=== PATIENT | male | born 1955 | race Caucasian/White ===

== ENCOUNTER 2016-08-18 09:21 | Outpatient (CLI) | payer MEDICARE ==
[2016-08-18 18:33] LABS: HEMOGLOBIN A1C 0.83 g/dL
[2016-08-18 18:46] LABS: ALBUMIN/GLOBULIN RATIO 1.7 (1.0-2.2); BILIRUBIN,TOTAL 0.5 mg/dL (0.2-1.0); BUN - BLOOD UREA NITROGEN 23 mg/dL (6-20); CALCIUM 9.8 mg/dL (8.5-10.3); CARBON DIOXIDE - CO2 26 mmol/L (21-32); CHLORIDE 108 mmol/L (101-111); CHOL/HDL RATIO 4.5 (<5.0); CHOLESTEROL 157 mg/dL; CREATININE 1.1 mg/dL (0.6-1.2); GFR - MDRD 68 (>89); GLUCOSE 117 mg/dL (70-100); HDL CHOLESTEROL 35 mg/dL; LDL/HDL RATIO 1.6 (<3.6); POTASSIUM 4.1 mmol/L (3.5-5.0); SODIUM 139 mmol/L (135-145); TRIGLYCERIDES 329 mg/dL; URIC ACID 4.6 mg/dL (2.6-7.2); VLDL CHOLESTEROL 66 mg/dL
== END 2016-08-18 09:22 | disposition home or self-care (01) ==
LOC: LAB.F 09:21
PROVIDERS: ATTEND Family Medicine
DX: E11.9 Type 2 diabetes mellitus without complications (principal); I10 Essential (primary) hypertension; D89.813 Graft-versus-host disease, unspecified; D64.3 Other sideroblastic anemias; E78.5 Hyperlipidemia, unspecified; M10.9 Gout, unspecified; E78.1 Pure hyperglyceridemia; Z79.899 Other long term (current) drug therapy
CPT/HCPCS: 36415; 80053; 80061; 82043; 83036; 84550

== ENCOUNTER 2016-11-12 10:04 | Outpatient (CLI) | payer MEDICARE ==
[2016-11-12 19:36] LABS: HEMOGLOBIN A1C 0.97 g/dL
== END 2016-11-12 10:05 | disposition home or self-care (01) ==
LOC: LAB.F 10:04
PROVIDERS: ATTEND Family Medicine
DX: D48.5 Neoplasm of uncertain behavior of skin (principal); E11.9 Type 2 diabetes mellitus without complications; Z79.4 Long term (current) use of insulin; I10 Essential (primary) hypertension; G89.4 Chronic pain syndrome
CPT/HCPCS: 36415; 83036

== ENCOUNTER 2016-12-03 09:13 | Inpatient (IN) | payer MEDICARE ==
[2016-12-03] MEDS ORDERED: ONDANSETRON 4 MG/2 ML VIAL IVP STA (10:07)
[2016-12-03] MEDS ORDERED: SODIUM CHLORIDE 0.9% 1,000 ML IV ONE (10:07)
[2016-12-03] MEDS ORDERED: HYDROmorphone 1 MG/ML SYRINGE IVP STA ×2 (10:07→12:20)
[2016-12-03 10:15] LABS: BASOPHILS # (AUTO) 0.1 10^3/uL (0.0-0.1); BASOPHILS % (AUTO) 0.4 %; EOSINOPHILS # (AUTO) 0.1 10^3/uL (0.0-0.7); EOSINOPHILS % (AUTO) 0.9 %; HCT - HEMATOCRIT 47.1 % (42.0-52.0); LYMPHOCYTES # (AUTO) 1.5 10^3/uL (1.5-3.5); LYMPHOCYTES % (AUTO) 11.5 %; MEAN CORPUSCULAR HEMOGLOBIN 33.7 pg (27.0-31.0); MEAN CORPUSCULAR VOLUME 98.9 fL (80.0-94.0); MEAN PLATELET VOLUME 7.9 fL (7.4-11.4); MONOCYTES # (AUTO) 1.1 10^3/uL (0.0-1.0); MONOCYTES % (AUTO) 8.3 %; NEUTROPHILS # (AUTO) 10.6 10^3/uL (1.5-6.6); NEUTROPHILS % (AUTO) 78.9 %; RED BLOOD COUNT 4.77 10^6/uL (4.70-6.10); RED CELL DISTRIBUTION WIDTH 14.3 % (12.0-15.0); UNCORRECTED WHITE BLOOD COUNT 13.4 x10^3/uL; WHITE BLOOD COUNT 13.4 x10^3/uL (4.8-10.8)
[2016-12-03] MEDS ORDERED: HYDROmorphone 1 MG/ML SYRINGE ONE ×2 (10:15→12:41)
[2016-12-03] MEDS ORDERED: ONDANSETRON 4 MG/2 ML VIAL ONE (10:16)
[2016-12-03 10:31] LABS: ALBUMIN/GLOBULIN RATIO 2.1 (1.0-2.2); BILIRUBIN,TOTAL 0.8 mg/dL (0.2-1.0); CALCIUM 10.2 mg/dL (8.5-10.3); TOTAL PROTEIN 6.9 g/dL (6.7-8.2)
[2016-12-03 10:32] LABS: POTASSIUM 4.2 mmol/L (3.5-5.0)
[2016-12-03 11:09] LABS: PLATELET ESTIMATE, MANUAL DECREASED (<130,000) (NORMAL); PLATELET MORPHOLOGY NORMAL APPEARANCE (NORMAL); WBC MORPHOLOGY (MULTIPLE) NORMAL APPEARANCE (NORMAL)
[2016-12-03] MEDS ORDERED: SODIUM CHLORIDE FLUSH 0.9% 10 ML SYRINGE IVP ONE (12:41)
--- NOTE | 2016-12-03 15:19 | ED Physician Documentation ---
PD HPI ABD PAIN - Stated complaint Stated Complaint: SIDE PX - Chief complaint Chief Complaint: Abd Pain - History obtained from History obtained from: Patient, Family - History of Present Illness Timing - onset: Yesterday Timing - details: Still present Quality: Pain Associated symptoms: Vomiting (x 1 this morning.). No: Fever Similar symptoms before: Diagnosis (History of chronic pancreatitis.) - Treatment prior to arrival Treatment prior to arrival: Hydromorphone without relief. - Additional information Additional information: The patient is a 61-year-old male who presents with upper abdominal pain that started yesterday and continues this morning, with associated vomiting. He has a history of chronic pancreatitis, and states this feels the same as acute exacerbations of pancreatitis he has had in the past. His last acute flareup was about 1 year ago. He has been using hydromorphone for pain, and also uses hydrocodone when needed. His last alcohol was in 1998. Review of his medical record reveals similar presentations, with ultrasound revealing cholelithiasis without evidence of cholecystitis. He has also undergone CT and MRI of his abdomen, which revealed no evidence of biliary obstruction or choledocholithiasis. 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 He developed agyue-luqwlh-yxxr disease with subsequent myelodysplastic syndrome. Review of Systems Constitutional: denies: Fever Nose: denies: Congestion Throat: denies: Sore throat Cardiac: denies: Chest pain / pressure Respiratory: denies: Dyspnea, Cough GI: reports: Abdominal Pain, Nausea, Vomiting. denies: Diarrhea, Bloody / black stool : denies: Dysuria Skin: denies: Rash Musculoskeletal: denies: Back pain Neurologic: denies: Focal weakness, Numbness, Headache PD PAST MEDICAL HISTORY - Past Medical History Past Medical History: Yes Cardiovascular: None Respiratory: None Neuro: None Endocrine/Autoimmune: Type 2 diabetes GI: Pancreatitis HEENT: None Musculoskeletal: Gout Derm: None Other Past Medical History: Chronic pancreatitis; Stem cell transplant for leukemia; Zugto-sk-[id number] with subsequent myelodysplastic syndrome - Past Surgical History Past Surgical History: Yes - Present Medications Home Medications: Ambulatory Orders Medication Instructions Recorded Confirmed Allopurinol 300 mg PO DAILY 10/04/12 11/15/16 Cholecalciferol (Vitamin D3) 1,000 unit PO DAILY 10/04/12 11/15/16 [Vitamin D3] Lisinopril 20 mg PO BID 10/04/12 11/15/16 Multivitamin [Multivitamins] 1 each PO DAILY 10/04/12 11/15/16 Omeprazole [PriLOSEC] 20 mg PO QDAC 10/04/12 11/15/16 Insulin NPH Human Isophane 40 unit SQ BID 02/12/13 11/15/16 [Humulin N] Acyclovir 800 mg PO BID 05/16/15 11/15/16 Atorvastatin Calcium 20 mg PO DAILY 10/23/15 11/15/16 Insulin Regular, Human [Humulin R] 30 unit SQ QID 10/23/15 11/15/16 Sildenafil Citrate [Sildenafil] 20 - 40 mg PO DAILY PRN 10/23/15 11/15/16 Magnesium Oxide [Magnesium] 2,000 mg PO DAILY #0 10/28/15 11/15/16 Metoprolol Tartrate [Lopressor] 50 mg PO BID #28 tablet 10/28/15 11/15/16 Hydrocodone/Acetaminophen 1 - 2 tab PO Q4HR PRN 11/17/15 11/15/16 [Hydrocodone-APAP 5-300] predniSONE [Deltasone] 10 mg PO DAILYWM 02/16/16 11/15/16 HYDROmorphone [Dilaudid] 2 mg PO Q4-6H PRN 11/15/16 11/15/16 - Allergies Allergies/Adverse Reactions: Allergies Allergy/AdvReac Type Severity Reaction Status Date / Time No Known Drug Allergies Allergy Verified 03/01/16 05:12 - Social History Does the pt smoke?: No Smoking Status: Never smoker Does the pt drink ETOH?: No Does the pt have substance abuse?: No - Immunizations Immunizations are current?: Yes - POLST Patient has POLST: No PD ED PE NORMAL - Vitals Vital signs reviewed: Yes (hypertensive) - General General: Alert and oriented X 3, Well developed/nourished - HEENT HEENT: Atraumatic, Pharynx benign - Neck Neck: No adenopathy, No JVD - Cardiac Cardiac: RRR, No murmur - Respiratory Respiratory: No respiratory distress, Clear bilaterally - Abdomen Abdomen: Normal bowel sounds, Soft, Other (Rotund abdomen, with mild right upper quadrant and epigastric tenderness to palpation, without rebound tenderness or guarding.) - Back Back: No CVA TTP - Derm Derm: No rash - Extremities Extremities: No edema, No calf tenderness / cord - Neuro Neuro: Alert and oriented X 3, No motor deficit, Normal speech Results - Vitals Vitals: Vital Signs - 24 hr 12/03/16 12/03/16 12/03/16 09:25 10:31 12:10 Temperature 37.0 C 36.5 C Heart Rate 73 72 74 Respiratory 18 17 14 Rate Blood Pressure 150/75 H 142/70 H 154/97 H O2 Saturation 98 98 92 12/03/16 12/03/16 12/03/16 12:40 14:15 16:23 Temperature Heart Rate 81 74 72 Respiratory 16 16 Rate Blood Pressure 153/89 H 133/63 H 179/93 H O2 Saturation 95 96 95 Oxygen O2 Source Room air - Labs Labs: Laboratory Tests 12/03/16 12/03/16 12/03/16 10:02 10:02 10:02 WBC 13.4 H RBC 4.77 Hgb 16.0 Hct 47.1 MCV 98.9 H MCH 33.7 H MCHC 34.0 RDW 14.3 Plt Count 126 L MPV 7.9 Neut # 10.6 H Lymph # 1.5 [place] # 1.1 H Eos # 0.1 Baso # 0.1 Absolute Nucleated RBC 0.00 Nucleated RBCs 0.0 Manual Slide Review Indicated WBC Morphology NORMAL APPEARANCE Platelet Estimate DECREASED (<130,000) Platelet Morphology NORMAL APPEARANCE RBC Morph Micro Appear NORMAL APPEARANCE Sodium 136 Potassium 4.2 Chloride 103 Carbon Dioxide 22 Anion Gap 11.0 BUN 21 H Creatinine 1.0 Estimated GFR (MDRD) 76 L Glucose 187 H Calcium 10.2 Total Bilirubin 0.8 AST 37 ALT 43 Alkaline Phosphatase 41 L Total Protein 6.9 Albumin 4.7 Globulin 2.2 Albumin/Globulin Ratio 2.1 Amylase 313 H Lipase 359 H - Rads (name of study) RUQ U/S Radiology: Prelim report reviewed, EMP read contemporaneously, See rad report ( 1. Enlarged liver with diffuse hepatic steatosis, along with focal fatty sparing in the left lobe. 2. Cholelithiasis with evidence for acute cholecystitis. 3. No intrahepatic biliary dilatation. 4. Pancreas not well seen. ) PD MEDICAL DECISION MAKING - ED course Complexity details: reviewed old records, reviewed results, re-evaluated patient , considered differential, d/w patient, d/w family, d/w solutions consultant ED course: The patient's presentation is consistent with acute exacerbation of chronic pancreatitis, with a lipase of 359. Ultrasound of the right upper quadrant again reveals cholelithiasis, but unlike previous imaging studies also reveals evidence of acute cholecystitis. His liver enzymes are normal with a bilirubin of 0.8, an AST of 43, and an alk phos of 41. Treatment in the emergency department included administration of normal saline 1 L IV, Dilaudid 2 mg IV, and Zofran 4 mg IV. Subsequently an additional milligram of Dilaudid and 4 mg Zofran were administered IV. I discussed his condition with the hospitalist who evaluated him in the emergency department and admitted him for further evaluation and treatment. General surgery was consulted as per the medicine service. Departure - Departure Disposition: [facility] DC/Xfer Clinical Impression: Acute pancreatitis Qualifiers: Pancreatitis type: unspecified pancreatitis type Acute pancreatitis complication: unspecified Qualified Code(s): K85.90 - Acute pancreatitis without necrosis or infection, unspecified Cholecystitis with cholelithiasis Qualifiers: Cholelithiasis location: gallbladder Cholecystitis acuity: unspecified acuity Biliary obstruction: without biliary obstruction Qualified Code(s): K80.00 - Calculus of gallbladder with acute cholecystitis without obstruction Condition: Stable
[2016-12-03] MEDS ORDERED: ZOLPIDEM 5 MG TABLET PO PRN (16:37)
[2016-12-03] MEDS ORDERED: ONDANSETRON 4 MG/2 ML VIAL IVP PRN (16:37)
[2016-12-03] MEDS ORDERED: cloNIDine 0.1 MG TABLET PO PRN (16:42)
--- NOTE | 2016-12-03 16:47 | Ultrasound Preliminary Report ---
Exam: US Abdomen Limited IMPRESSION: 1. Enlarged liver with diffuse hepatic steatosis, along with focal fatty sparing in the left lobe. 2. Cholelithiasis with evidence for acute cholecystitis. 3. No intrahepatic biliary dilation. 4. Pancreas not well-seen. [facility] SITE ID: [id number]
--- NOTE | 2016-12-03 16:50 | Ultrasound Report ---
EXAM: ABDOMEN ULTRASOUND LIMITED, RUQ EXAM DATE: 12/03/2016 04:29 PM. CLINICAL HISTORY: Pancreatitis; RUQ pain. COMPARISON: 10/22/2015. TECHNIQUE: Real-time scanning was performed with static images obtained. FINDINGS: Liver: Enlarged liver with diffusely increased echogenicity. Focal 3.5 cm hypoechoic avascular area w ith ill-defined borders in the left lobe is unchanged compared to prior. 20.1 cm. Main portal vein fl ow: Hepatopetal. Gallbladder: Gallbladder wall thickening to 5 mm. Sludge and a small mobile gallstones in the gallbla dder. Positive sonographic Bowman sign. Biliary System: Common bile duct is not seen secondary to overlying bowel gas shadowing. No intrahepa tic biliary dilation.. Other: Right kidney appears unremarkable without hydronephrosis. Pancreas is not well seen due to bow el gas shadowing. IMPRESSION: 1. Enlarged liver with diffuse hepatic steatosis, along with focal fatty sparing in the left lobe. 2. Cholelithiasis with evidence for acute cholecystitis. 3. No intrahepatic biliary dilation. 4. Pancreas not well-seen. [facility] Referring Provider Line: [phone] SITE ID: [id number]
[2016-12-03] MEDS ORDERED: INSULIN ASPART 300 UNIT/3 ML PEN SUBQ SCH (17:00)
[2016-12-03 17:23] LABS: HEMOGLOBIN A1C 1.11 g/dL
[2016-12-03] MEDS: SODIUM CHLORIDE FLUSH 0.9% 10 ML SYRINGE IVP PRN (17:43)
[2016-12-03] MEDS: HYDROmorphone 1 MG/ML SYRINGE IVP PRN ×2 (17:43→19:42)
[2016-12-03] MEDS: SODIUM CHLORIDE 0.9% 1,000 ML IV SCH ×2 (17:47→17:53)
[2016-12-03] MEDS: PIPERACILLIN/TAZOBACTAM 3.375 GM in SODIUM CHLORIDE 0.9% MINIBAG 100 ML IV SCH (17:53)
[2016-12-03] MEDS: INSULIN REGULAR HUMAN 100 UNIT/1 ML 10 ML MDV SUBQ SCH (18:17)
--- NOTE | 2016-12-03 19:26 | HISTORY & PHYSICAL EXAMINATION ---
Chief Complaint - Chief Complaint Chief Complaint: abdominal pain History of Present Illness - Admitted From Admitted From:: emergence department - History Obtained From History obtained from: patient - History of Present Illness HPI Comment/Other: This is a 61-year-old Cauc[place] male with a past medical history significant for chronic pancreatitis, alcoholism, DM2, gout, Leukemia with stem cell transplant , chwxv-bvblhh-amoh disease with subsequent myelodysplastic syndrome, hyperlilidemia, and HTN, who present the emergence department for evaluation of suddenly onset of abdominal pain. Patient state the abdominal pain start quite suddenly after he ate Chicken Enchiladas. Patient ate "quite a bit, it is very tasty." The pain radiate to his back, then diffuse the abdomen. Patient report this time the way of pain is different from his previous pancreatitis pain. The previous pain started from the chronic pattern. Patient report his last flareup of acute on chronic pancreatitis was about one year ago. Patient report he quit alcohol since 1998. Patient report subsequently he developed nausea and vomiting. He denies hematemesis, melena, or rectal bleeding. Patient denies fever, chill, chest pain, shortness of breathing, headache, dysuria, hematuria, vision changing. In the lab test in ER, patient has the elevated Lipase and Amylase level at 359 , and 313, elevated WBC at 13.4, and elevated glucose 262. The abdominal US reveals enlarged liver with diffuse hepatic steatosis, with evidence of acute cholecystitis, no intrahepatic biliary dilation. Patient is admitted for evaluation of acute on chronic pancreatitis and acute cholecystitis. Review of Systems - Constitutional Constitutional: denies: Fever, Chills, Malaise, Weakness, Poor appetite, Night sweats, Weight gain, Weight loss - Eyes Eyes: denies: Pain, Irritation, Amaurosis, Blurred vision, Spots in vision, Field loss, Vision loss, Dipolpia - Ears, Nose & Throat Ears, Nose & Throat: denies: Ear pain, Hearing loss, Hearing aids, Tinnitus, Vertigo, Nasal discharge, Nosebleeds, Postnasal drainage, Sore throat, Hoarseness, Bleeding gums - Cardiovascular Cariovascular: denies: Irregular heart rate, Palpitations, Chest pain, Edema, Lightheadedness, Syncope, Exertional dyspnea, Decr. exercise tolerance - Respiratory Respiratory: denies: Cough, Sputum production, Wheezing, Snoring, Hemoptysis, Orthopnea, SOB at rest, SOB with exertion - Gastrointestinal Gastrointestinal: reports: Abdominal pain, Nausea, Vomiting. denies: Abdominal distention, Constipation, Diarrhea, Change in bowel habits, Rectal bleeding, Black stools, Bloody stools, Bile emesis, Dagoberto blood emesis, Coffee grounds emesis, Reflux/heartburn, Poor appetite - Genitourinary Genitourinary: denies: Dysuria, Frequency, Urgency, Hematuria, Incontinence, Flank pain, Nocturia, Urethral discharge - Musculoskeletal Musculoskeletal: reports: Gout. denies: Muscle pain, Back pain, Muscle aches, Stiffness, Joint pain, Joint swelling - Integumentary Integumentary: denies: Rash, Pruritis, Lesions, Dryness, Acne, Pigment changes - Neurological Neurological: denies: General weakness, Focal weakness, Headache, Numbness, Pre- existing deficit, Abnormal gait, Seizures, Incoordination, Slurred speech - Psychiatric Psychiatric: denies: Depression, Anxiety, Suicidal, Delusions, Hallucinations, Homicidal - Endocrine Endocrine: denies: Polyuria, Polydypsia, Polyphagia, Intolerance to cold - Hematologic/Lymphatic Hematologic/Lymphatic: denies: Anemia, Bruising, Petechiae, Blood clots, Lymphadenopathy, Bleeding tendencies, Recurrent infections History - Past Medical History Cardiovascular: reports: None Respiratory: reports: None Neuro: reports: None Endocrine/Autoimmune: reports: Type 2 diabetes GI: reports: Pancreatitis HEENT: reports: None Musculoskeletal: reports: Gout Derm: reports: None MRSA Hx?: No Other Past Medical History: Chronic pancreatitis; Stem cell transplant for leukemia; Jyzmr-xr-Iflc with subsequent myelodysplastic syndrome - Family & Social History Living arrangement: At home Living Situation: With spouse/s.o. - Substance History Use: Uses substance without health or social issues: NONE Abuse: Recurrent use of substance despite neg consequences: NONE Dependence: Experiences withdrawal or developed tolerances: NONE - POLST Patient has POLST: No POLST Status: Full Code Meds/Allgy - Home Medications Home Medications: Ambulatory Orders Medication Instructions Recorded Confirmed Allopurinol 300 mg PO DAILY 10/04/12 12/03/16 Cholecalciferol (Vitamin D3) 1,000 unit PO DAILY 10/04/12 12/03/16 [Vitamin D3] Lisinopril 20 mg PO BID 10/04/12 12/03/16 Multivitamin [Multivitamins] 1 each PO DAILY 10/04/12 12/03/16 Omeprazole [PriLOSEC] 20 mg PO QDAC 10/04/12 12/03/16 Insulin NPH Human Isophane 40 unit SQ BID 02/12/13 12/03/16 [Humulin N] Acyclovir 800 mg PO BID 05/16/15 12/03/16 Atorvastatin Calcium 20 mg PO DAILY 10/23/15 12/03/16 Insulin Regular, Human [Humulin R] 40 unit SQ QID 10/23/15 12/03/16 Sildenafil Citrate [Sildenafil] 20 - 40 mg PO DAILY PRN 10/23/15 12/03/16 Magnesium Oxide [Magnesium] 2,000 mg PO DAILY #0 10/28/15 12/03/16 Metoprolol Tartrate [Lopressor] 50 mg PO BID #28 tablet 10/28/15 12/03/16 Hydrocodone/Acetaminophen 1 - 2 tab PO Q4HR PRN 11/17/15 12/03/16 [Hydrocodone-APAP 5-300] HYDROmorphone [Dilaudid] 2 mg PO Q4-6H PRN 11/15/16 12/03/16 predniSONE [Deltasone] 7.5 mg PO Q48H 12/03/16 12/03/16 predniSONE [Deltasone] 10 mg PO Q48H 12/03/16 12/03/16 - Allergies Allergies/Adverse Reactions: Allergies Allergy/AdvReac Type Severity Reaction Status Date / Time No Known Drug Allergies Allergy Verified 03/01/16 05:12 Exam - Vital Signs Reviewed Vital Signs: Yes Vital Signs: Vital Signs x48h Temp Pulse Pulse Resp BP BP Pulse Ox 12/03/16 17:33 36.3 C L 75 18 156/81 H 95 12/03/16 17:00 77 14 175/93 H 96 - Physical Exam General Appearance: positive: No acute distress, Alert. negative: Lethargic Eyes Bilateral: positive: Normal inspection, PERRL, No lid inflammation, Conjunctivae nml ENT: positive: ENT inspection nml, Pharynx nml, No signs of dehydration. negative: Purulent nasal drainage, Pharyngeal erythema Neck: positive: Nml inspection, Thyroid nml, No JVD, Trachea midline. negative : Thyromegaly, Lymphadenopathy (R), Lymphadenopathy (L), Stiff neck, Swelling/ bruising, Tracheal deviation Respiratory: positive: Chest non-tender, No respiratory distress, Breath sounds nml. negative: Wheezes, Rales, Rhonchi Cardiovascular: positive: Regular rate & rhythm, No murmur, No gallop. negative : Tachycardia, Bradycardia, Systolic murmur, Diastolic murmur Peripheral Pulses: positive: 2+ Abdomen: positive: Non-tender, No organomegaly, Nml bowel sounds, No distention. negative: Tenderness, Guarding, Rebound Back: positive: Nml inspection. negative: CVA tenderness (R), CVA tenderness (L ) Skin: positive: Color nml, No rash, Warm, Dry. negative: Cyanosis, Diaphoresis , Pallor, Skin rash, Decubitus Extremities: positive: Non-tender, Full ROM, Nml appearance. negative: Pedal edema, Calf tenderness, Cory's sign/cords Neurologic/Psychiatric: positive: Oriented x3, Motor nml, Sensation nml, Mood/ affect nml. negative: Sensory loss, Facial droop, Slurred/abnml speech, Depressed mood/affect Conclusion/Plan - Problem List (1) Acute pancreatitis Conclusion/Plan: acute on chronic pancreatitis. NPO except meds IVF pain control Qualifiers: Pancreatitis type: unspecified pancreatitis type Acute pancreatitis complication: unspecified Qualified Code(s): K85.90 - Acute pancreatitis without necrosis or infection, unspecified (2) Acute cholecystitis Conclusion/Plan: acute onset of abdominal pain after eating fatty food, pain radiate to back, US reveals cholecystitis, consult with surgeon, follow up NPO without medication IVF pain control Zosyn IV (3) Diabetes Conclusion/Plan: check A1C resume of home meds after reconciliation ACHS, slide scale (4) HTN (hypertension) Conclusion/Plan: resume home meds add Clonidine as PRN (5) Gout Conclusion/Plan: stable, resume home meds, lab test monitor (6) Hyperlipidemia Conclusion/Plan: resume home meds (7) Myelodysplastic disease Conclusion/Plan: history of leukemia with stem cell transplant, trzrl-ymwnry-[id number] with subsequent myelodysplastic syndrome stable, closely monitor with daily lab, vital, tele (8) DVT prophylaxis Conclusion/Plan: SCD with Lovenox - Lab Results Fish Bones: 12/04/16 05:29 12/04/16 05:29 Issues/Core Measures - Anticipated LOS Anticipated Stay Length: 2 or more midnights (acute on chronic pancreatitis and acute cholecystitis, expected two more nights) - DVT/VTE - Prophylaxis VTE/DVT Device ordered at admit?: Yes
[2016-12-03] MEDS ORDERED: LIDOCAINE 2% 10 ML MDV ONE (20:06)
[2016-12-03] MEDS ORDERED: PHENobarb/HYOSCY/ATROPINE/SCOP 5 ML SYRINGE PO ONE (20:07)
[2016-12-03] MEDS ORDERED: MAG HYDROX/AL HYDROX/SIMETH 30 ML UDC ONE (20:07)
[2016-12-03] MEDS: METOPROLOL TARTRATE 50 MG TABLET PO SCH (20:34)
[2016-12-03] MEDS: ATORVASTATIN 10 MG TABLET PO SCH (20:35)
[2016-12-03] MEDS: LISINOPRIL 20 MG TABLET PO SCH (20:35)
[2016-12-03] MEDS: SODIUM CHLORIDE FLUSH 0.9% 10 ML SYRINGE IVP SCH (20:35)
[2016-12-03] MEDS: HYDROcod/ACETAM 5/325 MG TABLET PO PRN (20:35)
--- NOTE | 2016-12-03 22:08 | HISTORY & PHYSICAL EXAMINATION ---
DATE OF ADMISSION: 12/03/2016 PREOPERATIVE HISTORY AND PHYSICAL/CONSULTATION REQUESTING PROVIDER: I am consulted on this pleasant 61-year-old male by ROMÁN Kyle, for acute cholecystitis. LOCATION: The patient is evaluated in room 2205. HISTORY: The patient states that his abdominal pain started yesterday after eating chicken enchiladas . He states that the chicken enchiladas were very tasty but also kind of fatty. The abdominal pain th at he had started abruptly, which is unlike the way his pain usually starts with his chronic pancreat itis. His last flareup of acute pancreatitis was approximately 1 year prior to this. He uses hydromor phone to ameliorate the pain, with additional hydrocodone as needed. Initially his pancreatitis was felt to be due to alcoholism, but his last drink of alcohol was in 9. He has had numerous presentations with abdominal pain, which is felt to be pancreatitis, but the p revious pancreatitis episodes had a chronic nature to it; this is somewhat different. This was associ ated with vomiting. There has been no hematemesis, melena, or hematochezia. Of particular interest, the patient has had leukemia, for which he underwent a stem cell transplant, and subsequent to this, he developed felok-zpbfcq-yklv disease with subsequent myelodysplastic syndro me. ALLERGIES: NONE. MEDICATIONS 1. Allopurinol 300 mg p.o. daily. 2. Vitamin D3 at 1000 mg p.o. daily. 3. Lisinopril 20 mg p.o. b.i.d. 4. Multivitamin 1 tablet p.o. daily. 5. Prilosec 20 mg p.o. nightly. 6. Insulin NPH 40 units subcutaneously b.i.d. 7. Acyclovir 800 mg p.o. b.i.d. 8. Atorvastatin calcium 20 mg p.o. daily. 9. Humulin R 30 units subcutaneously q.i.d. 10. Sildenafil 20-40 mg p.o. daily as needed. 11. Magnesium oxide 2000 mg p.o. daily. 12. Metoprolol tartrate 50 mg p.o. b.i.d. 13. Hydrocodone/acetaminophen 5/300 at 1-2 tabs every 4 hours as needed for pain. 14. Prednisone 10 mg p.o. daily. 15. Hydromorphone 2 mg p.o. every 4-6 hours as needed for pain. PAST MEDICAL AND SURGICAL HISTORY 1. Type 2 diabetes. 2. Chronic pancreatitis. 3. History of alcoholism. 4. History of gout. 5. Stem cell transplant from leukemia. 6. Qrnvf-tboruj-xsad disease with subsequent myelodysplastic syndrome. 7. Dyslipidemia. 8. Hypertension. SOCIAL HISTORY TOBACCO: None currently. ALCOHOL: None currently, and none since 1998. RECREATIONAL DRUG USE: Denied. REVIEW OF SYSTEMS CONSTITUTIONAL: He denies fever, chills, or generalized weakness. HEENT: He denies any worsening of his hearing or vision. NECK: He denies any difficulty speaking or swallowing. CARDIAC: He denies chest pain or pressure. RESPIRATORY: He denies dyspnea or productive cough. GASTROINTESTINAL: Please see above. GENITOURINARY: He denies dysuria. SKIN: He denies rash. MUSCULOSKELETAL: He has some generalized aches and pains throughout. NEUROLOGIC: He denies focal or generalized weakness. PHYSICAL EXAMINATION GENERAL: This is a 61-year-old gentleman, evaluated in room [address] [facility] Me d/Surg unit. He appears older than stated age. He is well developed and well nourished, and he is in no acute distress. He is alert and oriented to person, place, and time; asks and answers questions ap propriately. His mood and affect did appear appropriate. VITAL SIGNS: Please refer to nurse's note. HEENT: He has a somewhat pasty appearance with some shadowing under his eyes. His mucous membranes ar e pink and dry. NECK: Supple without mass or bruit. HEART: Regular rate and rhythm without rub, murmur, or gallop. LUNGS: Clear to auscultation bilaterally. ABDOMEN: Soft. No peritoneal findings. He is not particularly tender in the right upper quadrant david ght, but he does admit to having had pain medications just prior to my seeing him. There are decrease d bowel sounds. SKIN: There is no rash. EXTREMITIES: There is no clubbing, cyanosis, or edema. GAIT: Not evaluated. PSYCHIATRIC: He is alert and oriented to person, place, and time. His mood and affect appear appropri ate. He asks and answers questions well and easily. STUDIES Abnormalities on his labs include a BUN of 21, GFR of 76, glucose most recent of 262, glycosylated he moglobin of 8.1, estimated average glucose of 186, alkaline phosphatase of 4.1, amylase of 313, and t he lipase is 359. Abnormalities on his hematology include a white blood cell count of 13.4, MCV of 98.9, MCH of 33.7, p latelet count of 126, neutrophils of 10.6, and monocytes of 1.1. The abdominal ultrasound read by Dr. Wade states enlarged liver with diffuse hepatic steatosis florencia g with focal fatty sparing in the left lobe, cholelithiasis without evidence for acute cholecystitis, no intrahepatic biliary dilation, and the pancreas was not well seen. ASSESSMENT: A 61-year-old gentleman with a chronic history of pancreatitis, who now presents with foc al findings and history that are consistent with acute cholecystitis. PLAN: Laparoscopic cholecystectomy with intraoperative cholangiography, possible open cholecystectomy , possible common bile duct exploration. The indications, procedure, alternatives, and possible compl ications including but not limited to infection with all of its risks, bleeding with all of its risks including transfusion (although it would be very difficult in this patient with a stem cell transpla nt), common bile duct exploration, and were fully explained to the patient, and all questions w ere answered. Verbal and written consent was obtained. The patient in preparation for this will be n.p.o. He is already receiving antibiotics. He already phillip s TEDs and Venodynes placed for prophylaxis against deep venous thrombosis. Additionally I will have the patient take a shower on the morning of the procedure. I have asked the patient to let us know if there is any way we can make his stay here at [facility] more comfortable, to please let us know. He stated that he would. Please note that 45 minutes of uktl-cn-yybd time was spent with the patient, the majority of it in di scussion, also in generating this note, also in coordinating his care. JOB #: [id number] EXT JOB #:[id number]
[2016-12-04] MEDS: INSULIN REGULAR HUMAN 100 UNIT/1 ML 10 ML MDV SUBQ SCH ×4 (00:22→18:30)
[2016-12-04] MEDS: PIPERACILLIN/TAZOBACTAM 3.375 GM in SODIUM CHLORIDE 0.9% MINIBAG 100 ML IV SCH ×5 (00:23→20:46)
[2016-12-04] MEDS: HYDROcod/ACETAM 5/325 MG TABLET PO PRN ×2 (00:28→05:48)
[2016-12-04] MEDS: SODIUM CHLORIDE 0.9% 1,000 ML IV SCH ×4 (01:47→18:32)
[2016-12-04] MEDS: SODIUM CHLORIDE FLUSH 0.9% 10 ML SYRINGE IVP SCH ×5 (05:43→20:48)
[2016-12-04 06:26] LABS: BASOPHILS % (AUTO) 0.3 %; EOSINOPHILS # (AUTO) 0.1 10^3/uL (0.0-0.7); HCT - HEMATOCRIT 50.5 % (42.0-52.0); HGB - HEMOGLOBIN 16.7 g/dL (14.0-18.0); LYMPHOCYTES # (AUTO) 2.1 10^3/uL (1.5-3.5); LYMPHOCYTES % (AUTO) 16.4 %; MEAN CORPUSCULAR HEMOGLOBIN 33.6 pg (27.0-31.0); MEAN CORPUSCULAR HGB CONC 33.1 g/dL (32.0-36.0); MEAN CORPUSCULAR VOLUME 101.7 fL (80.0-94.0); MEAN PLATELET VOLUME 7.7 fL (7.4-11.4); MONOCYTES # (AUTO) 1.1 10^3/uL (0.0-1.0); MONOCYTES % (AUTO) 8.7 %; NEUTROPHILS # (AUTO) 9.4 10^3/uL (1.5-6.6); NEUTROPHILS % (AUTO) 73.6 %; NUCLEATED RED BLOOD CELLS AUTO 0.1 /100WBC; RED BLOOD COUNT 4.97 10^6/uL (4.70-6.10); RED CELL DISTRIBUTION WIDTH 14.5 % (12.0-15.0); UNCORRECTED WHITE BLOOD COUNT 12.8 x10^3/uL; WHITE BLOOD COUNT 12.8 x10^3/uL (4.8-10.8)
[2016-12-04 06:45] LABS: ALBUMIN/GLOBULIN RATIO 1.9 (1.0-2.2); BILIRUBIN,TOTAL 0.8 mg/dL (0.2-1.0); POTASSIUM 4.3 mmol/L (3.5-5.0); TOTAL PROTEIN 6.9 g/dL (6.7-8.2)
[2016-12-04] MEDS: POLYETHYLENE GLYCOL 3350 17 GM PACKET PO SCH (08:11)
[2016-12-04] MEDS: ENOXAPARIN 40 MG/0.4 ML SYRINGE SUBQ SCH (08:11)
[2016-12-04] MEDS: CHOLECALCIFEROL 1,000 UNIT TABLET PO SCH (08:24)
[2016-12-04] MEDS: FAMOTIDINE 20 MG TABLET PO SCH ×2 (08:24→08:27)
[2016-12-04] MEDS: MULTIVITAMIN TABLET PO SCH (08:28)
[2016-12-04] MEDS: predniSONE 10 MG TABLET PO SCH (08:28)
[2016-12-04] MEDS: METOPROLOL TARTRATE 50 MG TABLET PO SCH ×3 (08:29→20:47)
[2016-12-04] MEDS: LISINOPRIL 20 MG TABLET PO SCH ×3 (08:29→20:48)
[2016-12-04] MEDS ORDERED: [UNRECOGNIZED DRUG - OTHER] ONE (08:49)
[2016-12-04] MEDS ORDERED: ALLOPURINOL 100 MG TABLET PO SCH (09:00)
[2016-12-04] MEDS ORDERED: SODIUM CHLORIDE 0.9% 1,000 ML IV ONE ×3 (09:20→12:55)
[2016-12-04] MEDS ORDERED: BUPIVACAINE 0.5% PF 30 ML VIAL SUBQ ONE (09:57)
[2016-12-04] MEDS ORDERED: IOTHALAMATE MEGLUMINE 50 ML VIAL IVP ONE ×2 (09:59→13:03)
[2016-12-04] MEDS ORDERED: ACETAMINOPHEN 1,000 MG/100 ML 100 ML IV ONE (10:10)
[2016-12-04] MEDS ORDERED: MIDAZOLAM 2 MG/2 ML VIAL IVP ONE (10:10)
[2016-12-04] MEDS ORDERED: ePHEDrine 50 MG/ML VIAL IVP ONE (10:10)
[2016-12-04] MEDS ORDERED: ONDANSETRON 4 MG/2 ML VIAL IVP ONE (10:10)
[2016-12-04] MEDS ORDERED: LIDOCAINE-MPF 2% 5 ML VIAL IM ONE (10:10)
[2016-12-04] MEDS ORDERED: SUCCINYLCHOLINE 200 MG/10 ML VIAL IVP ONE (10:10)
[2016-12-04] MEDS ORDERED: NEOSTIGMINE 1 MG/1 ML 10 ML MDV IVP ONE (10:10)
[2016-12-04] MEDS ORDERED: GLYCOPYRROLATE 1 MG/5 ML VIAL IVP ONE (10:10)
[2016-12-04] MEDS ORDERED: ROCURONIUM 50 MG/5 ML VIAL IVP ONE (10:10)
[2016-12-04] MEDS ORDERED: PROPOFOL 200 MG/20 ML VIAL IVP ONE (10:10)
[2016-12-04] MEDS ORDERED: HYDROmorphone 1 MG/ML SYRINGE IVP ONE (10:10)
[2016-12-04] MEDS ORDERED: [UNRECOGNIZED DRUG - OTHER] IVP ONE (10:10)
[2016-12-04] MEDS ORDERED: fentaNYL 100 MCG/2 ML VIAL IVP ONE (10:10)
--- NOTE | 2016-12-04 11:01 | PROVIDER PROGRESS NOTE ---
Subjective - Prog Note Date Prog Note Date: 12/04/16 - Subjective Pt reports feeling: Improved Subjective: pt report his abdominal pain is good control. he feel much better. Denies fever , chill, chest pain, SOB, or other complaints. Current Medications - Current Medications Current Medications: Active Medications Acetaminophen/Hydrocodone Bitart (Serena 5/325) 2 tab PO Q4HR PRN PRN Reason: PAIN Last Admin: 12/04/16 05:48 Dose: 2 tab Allopurinol (Zyloprim) 300 mg PO QPM [facility] Atorvastatin Calcium (Lipitor) 20 mg PO QPM [facility] Last Admin: 12/03/16 20:35 Dose: 20 mg Cholecalciferol (Vitamin D3) 1,000 unit PO DAILY [facility] Last Admin: 12/04/16 08:24 Dose: 1,000 unit Clonidine HCl (Catapres) 0.1 mg PO Q12H PRN PRN Reason: Hypertensive Emergency Enoxaparin Sodium (Lovenox) 40 mg SUBQ DAILY [facility] Last Admin: 12/04/16 08:11 Dose: Not Given Famotidine (Pepcid) 20 mg PO DAILY [facility] Last Admin: 12/04/16 08:27 Dose: 20 mg Hydromorphone HCl (Dilaudid Inj) 1 mg IVP Q2HR PRN PRN Reason: Pain 8 to 10 Last Admin: 12/03/16 19:42 Dose: 1 mg Sodium Chloride (Normal Saline 0.9%) 1,000 mls @ 150 mls/hr IV .Q6H40M [facility] Last Admin: 12/04/16 01:47 Dose: 150 mls/hr Piperacillin Sod/Tazobactam (Sod 3.375 gm/ Sodium Chloride) 100 mls @ 200 mls/ hr IV Q6H [facility] Last Admin: 12/04/16 05:33 Dose: 200 mls/hr Insulin Human Regular (Novolin R) 1 - 5 unit SUBQ Q6HR [facility] PRN Reason: Protocol Last Admin: 12/04/16 05:40 Dose: 3 unit Lisinopril (Zestril) 20 mg PO BID [facility] Last Admin: 12/04/16 08:35 Dose: 20 mg Metoprolol Tartrate (Lopressor) 50 mg PO BID [facility] Last Admin: 12/04/16 08:35 Dose: 50 mg Multivitamins (Theragran) 1 tab PO DAILYWM [facility] Last Admin: 12/04/16 08:28 Dose: 1 tab Ondansetron HCl (Zofran Inj) 4 mg IVP Q6HR PRN PRN Reason: Nausea / Vomiting Last Admin: 12/03/16 17:50 Dose: 4 mg Polyethylene Glycol (Miralax) 17 gm PO DAILY [facility] Last Admin: 12/04/16 08:11 Dose: Not Given Prednisone (Deltasone) 10 mg PO DAILYWM [facility] Last Admin: 12/04/16 08:28 Dose: 10 mg Sodium Chloride (Normal Saline Flush 0.9%) 10 ml IVP PRN PRN PRN Reason: NEEDED PER PROVIDER ORDERS Last Admin: 12/03/16 17:43 Dose: 10 ml Sodium Chloride (Normal Saline Flush 0.9%) 10 ml IVP Q8HR [facility] Last Admin: 12/04/16 05:43 Dose: 10 ml Zolpidem Tartrate (Ambien) 5 mg PO QPM PRN PRN Reason: Insomnia Allopurinol 300 mg PO DAILY 10/04/12 Cholecalciferol (Vitamin D3) [Vitamin D3] 1,000 unit PO DAILY 10/04/12 Lisinopril 20 mg PO BID 10/04/12 Multivitamin [Multivitamins] 1 each PO DAILY 10/04/12 Omeprazole [PriLOSEC] 20 mg PO QDAC 10/04/12 Insulin NPH Human Isophane [Humulin N] 40 unit SQ BID 02/12/13 Atorvastatin Calcium 20 mg PO QPM 10/23/15 Insulin Regular, Human [Humulin R] 30 unit SQ QID 10/23/15 Sildenafil Citrate [Sildenafil] 20 - 40 mg PO DAILY 10/23/15 Hydrocodone/Acetaminophen [Hydrocodone-APAP 5-300] 1 - 2 tab PO Q6H PRN HYDROmorphone [Dilaudid] 2 mg PO BID PRN 11/15/16 predniSONE [Deltasone] 7.5 mg PO Q48H 12/03/16 predniSONE [Deltasone] 10 mg PO Q48H 12/03/16 Fenofibrate Nanocrystallized [Fenofibrate] 145 mg PO DAILY 12/04/16 Insulin NPH Human Isophane [Humulin N] 90 units SUBQ BID 09/09/17 Objective - Vital Signs/Intake & Output Reviewed Vital Signs: Yes Vital Signs: Vital Signs x48h Temp Pulse Resp BP BP Pulse Ox 12/04/16 08:35 143/81 H 12/04/16 08:13 37.0 C 80 18 143/81 H 95 Intake & Output: Intake & Output 12/01/16 12/02/16 12/03/16 12/04/16 23:59 23:59 23:59 23:59 Intake Total 1669 Output Total 100 1300 Balance -100 369 - Objective General Appearance: positive: No acute distress, Alert. negative: Lethargic Eyes Bilateral: positive: Normal inspection, PERRL, EOMI, No lid inflammation, Conjunctivae nml ENT: positive: ENT inspection nml, Pharynx nml, No signs of dehydration. negative: Purulent nasal drainage, Pharyngeal erythema Neck: positive: Nml inspection, Thyroid nml, Trachea midline. negative: Thyromegaly, Lymphadenopathy (R), Lymphadenopathy (L), Stiff neck, Swelling/ bruising, Tracheal deviation Respiratory: positive: Chest non-tender, No respiratory distress, Breath sounds nml. negative: Wheezes, Rales, Rhonchi Cardiovascular: positive: Regular rate & rhythm, No murmur, No gallop. negative : Tachycardia, Bradycardia, Systolic murmur, Diastolic murmur Peripheral Pulses: 2+ Radial (R), 2+ Radial (L), 2+ Dorsalis pedis (R), 2+ Dorsalis pedis (L) Abdomen: positive: Non-tender, Nml bowel sounds, No distention. negative: Tenderness, Guarding, Rebound Back: positive: Nml inspection. negative: CVA tenderness (R), CVA tenderness (L ) Skin: positive: Color nml, Warm, Dry Extremities: positive: Non-tender, Full ROM, Nml appearance. negative: Pedal edema, Cory's sign/cords Neurologic/Psychiatric: positive: Oriented x3, Motor nml, Sensation nml, Mood/ affect nml. negative: Sensory loss, Facial droop, Slurred/abnml speech, Depressed mood/affect - Lab Results Fish Bones: 12/04/16 05:29 12/04/16 05:29 Other Labs: Lab Results x24hrs 12/04/16 12/04/16 12/04/16 Range/Units 05:29 05:29 05:29 WBC 12.8 H (4.8-10.8) x10^3/uL RBC 4.97 (4.70-6.10) 10^6/uL Hgb 16.7 (14.0-18.0) g/dL Hct 50.5 (42.0-52.0) % MCV 101.7 H (80.0-94.0) fL MCH 33.6 H (27.0-31.0) pg MCHC 33.1 (32.0-36.0) g/dL RDW 14.5 (12.0-15.0) % Plt Count 124 L (130-450) 10^3/uL MPV 7.7 (7.4-11.4) fL Neut # 9.4 H (1.5-6.6) 10^3/uL Lymph # 2.1 (1.5-3.5) 10^3/uL Nelson # 1.1 H (0.0-1.0) 10^3/uL Eos # 0.1 (0.0-0.7) 10^3/uL Baso # 0.0 (0.0-0.1) 10^3/uL Absolute Nucleated RBC 0.01 x10^3/uL Nucleated RBCs 0.1 /100WBC Sodium 136 (135-145) mmol/L Potassium 4.3 (3.5-5.0) mmol/L Chloride 102 (101-111) mmol/L Carbon Dioxide 25 (21-32) mmol/L Anion Gap 9.0 (6-13) BUN 15 (6-20) mg/dL Creatinine 1.0 (0.6-1.2) mg/dL Estimated GFR (MDRD) 76 L (>89) Glucose 224 H (70-100) mg/dL POC Whole Bld Glucose (70 - 100) mg/dL Calcium 10.0 (8.5-10.3) mg/dL Magnesium 2.2 (1.7-2.8) mg/dL Total Bilirubin 0.8 (0.2-1.0) mg/dL AST 33 (10-42) IU/L ALT 40 (10-60) IU/L Alkaline Phosphatase 44 (42-121) IU/L Total Protein 6.9 (6.7-8.2) g/dL Albumin 4.5 (3.2-5.5) g/dL Globulin 2.4 (2.1-4.2) g/dL Albumin/Globulin Ratio 1.9 (1.0-2.2) Lipase 175 H (22-51) U/L 12/04/16 12/03/16 Range/Units 00:06 17:39 WBC (4.8-10.8) x10^3/uL RBC (4.70-6.10) 10^6/uL Hgb (14.0-18.0) g/dL Hct (42.0-52.0) % MCV (80.0-94.0) fL MCH (27.0-31.0) pg MCHC (32.0-36.0) g/dL RDW (12.0-15.0) % Plt Count (130-450) 10^3/uL MPV (7.4-11.4) fL Neut # (1.5-6.6) 10^3/uL Lymph # (1.5-3.5) 10^3/uL Nelson # (0.0-1.0) 10^3/uL Eos # (0.0-0.7) 10^3/uL Baso # (0.0-0.1) 10^3/uL Absolute Nucleated RBC x10^3/uL Nucleated RBCs /100WBC Sodium (135-145) mmol/L Potassium (3.5-5.0) mmol/L Chloride (101-111) mmol/L Carbon Dioxide (21-32) mmol/L Anion Gap (6-13) BUN (6-20) mg/dL Creatinine (0.6-1.2) mg/dL Estimated GFR (MDRD) (>89) Glucose (70-100) mg/dL POC Whole Bld Glucose 231 H 262 H (70 - 100) mg/dL Calcium (8.5-10.3) mg/dL Magnesium (1.7-2.8) mg/dL Total Bilirubin (0.2-1.0) mg/dL AST (10-42) IU/L ALT (10-60) IU/L Alkaline Phosphatase (42-121) IU/L Total Protein (6.7-8.2) g/dL Albumin (3.2-5.5) g/dL Globulin (2.1-4.2) g/dL Albumin/Globulin Ratio (1.0-2.2) Lipase (22-51) U/L Assessment/Plan - Problem List (1) Acute pancreatitis Impression: (1) Acute pancreatitis Conclusion/Plan: pt feel much better than yesterday. Lipase is down to 175 continue IVF, NPO now will begine clear diet after surgery, and advanced diet as tolerated acute on chronic pancreatitis. NPO except meds IVF pain control Qualifiers: Pancreatitis type: unspecified pancreatitis type Acute pancreatitis complication: unspecified Qualified Code(s): K85.90 - Acute pancreatitis without necrosis or infection, unspecified (2) Acute cholecystitis Conclusion/Plan: Thank surgeon, he already saw pt Pt is on surgery now will follow up closely for status post-operation acute onset of abdominal pain after eating fatty food, pain radiate to back, US reveals cholecystitis, consult with surgeon, follow up NPO without medication IVF pain control Zosyn IV (3) Diabetes Conclusion/Plan: stable, continue treatment check A1C resume of home meds after reconciliation ACHS, slide scale (4) HTN (hypertension) Conclusion/Plan: stable, continue treatment resume home meds add Clonidine as PRN (5) Gout Conclusion/Plan: stable, resume home meds, lab test monitor (6) Hyperlipidemia Conclusion/Plan: resume home meds (7) Myelodysplastic disease Conclusion/Plan: stable, closely monitor with daily lab test, vital check, tele history of leukemia with stem cell transplant, [id number] with subsequent myelodysplastic syndrome stable, closely monitor with daily lab, vital, tele Qualifiers: Pancreatitis type: unspecified pancreatitis type Acute pancreatitis complication: unspecified Qualified Code(s): K85.90 - Acute pancreatitis without necrosis or infection, unspecified
[2016-12-04] MEDS ORDERED: PIPERACILLIN/TAZOBACTAM 3.375 GM in SODIUM CHLORIDE 0.9% MINIBAG 100 ML IV ONE (12:06)
[2016-12-04] MEDS ORDERED: SODIUM CHLORIDE FLUSH 0.9% 10 ML SYRINGE IVP PRN (13:56)
[2016-12-04] MEDS ORDERED: D5NS W/20 MEQ KCL 1,000 ML IV SCH (14:00)
[2016-12-04] MEDS ORDERED: ONDANSETRON 4 MG/2 ML VIAL IVP PRN (14:04)
--- NOTE | 2016-12-04 14:07 | XRAY Preliminary Report ---
Exam: [place] OR Cholangiogram IMPRESSION: A catheter has been placed into the cystic duct remnant following cholecystectomy. Cholan giography shows opacification of the bile ducts. Visualized ducts show no filling defects. Spill of c ontrast into the duodenum documented. [facility] SITE ID: [id number]
--- NOTE | 2016-12-04 14:09 | XRAY Report ---
EXAM: INTRAOPERATIVE CHOLANGIOGRAM EXAM DATE: 12/04/2016 01:47 PM. CLINICAL HISTORY: INTRAOPERATIVE CHOLANGIOGRAM. COMPARISONS: None. TECHNIQUE: Dr. Carter Alanizperformed the procedure. Please see the operative notes for details. Fluoroscopy Time: 1 minute 25 seconds. Number of Images: 2 images. FINDINGS/IMPRESSION: A catheter has been placed into the cystic duct remnant following cholecystectom y. Cholangiography shows opacification of the bile ducts. Visualized ducts show no filling defects. S pill of contrast into the duodenum documented. [facility] Referring Provider Line: [phone] SITE ID: [id number]
--- NOTE | 2016-12-04 14:14 | OPERATIVE REPORT ---
Operative Report - General Admit Date: 12/03/16 Planned Procedure: Laparoscopic cholecystectomy with IOC, possible open cholecystectomy, possi Pre-Op Diagnosis: Acute cholecystitis as well as chronic paincreatitis Procedure Performed: Laparoscopic cholecystectomy with intraoperative cholangiograms converted to open cholecystectomy with cholangiograms, placement of T-tube, placement of drain Post Op Diagnosis: Same - Procedure Note Primary Surgeon: Carter Alaniz MD Anesthesia Provider: Rubin Delaney Anesthesia Technique: General ET tube, Local (30 mL 1/2% marcaine) IV Fluids (mL): 2,500 Estimated Blood Loss (mL): 500 Urine Output (mL): 700 Drain/Tube Type: Adán drain (19 Fr), T-tube (12 Fr) Complications: Small incision in common bile duct recognized and T tube placed. - Other Other Information/Narrative: OPERATIVE DESCRIPTION/REPORT: After verbal and written informed consent was obtained detailing the risks of infection, bleeding requiring transfusion with its risks, common bile duct injury, and , and after I met with the patient confirming the surgery and the site of the surgery and after initialing the site of the surgery with a surgical marker, the patient was brought to the operative suite and placed supine on the operating table. Great care was taken to avoid pressure points to prevent pressure necrosis or nerve injury. Monitoring devices were applied along with TEDs and pneumatic compressive stockings (to prevent DVT). The patient received preoperative antibiotics for surgical prophylaxis. Rubin Delaney sedated and anethetized the patient for the entire procedure. The patient was prepped and draped in the usual sterile manner. With the patient draped my initials were clearly visible. A "time in" then confirmed that the paitient was identified with 3 identifiers (name, date and medical record number), the history and physical was in the chart, the signed consent confirming the procedure was in the chart, the patient was in the correct position, the aforementioned prophylactic measures were in place or given, we had the correct personel and equipment to complete the procedure and that anesthesia, surgery and nursing were given an opportunity to express any concerns. With the agreement of everyone in the room, we proceeded with the operation. A 2 cm supraumbilical incision was made. The fascia was then cleared of subcutaneous tissue using a tonsil clamp. A 1.5 cm incision was then made in the fascia gaining entry into the abdominal cavity without incident. A 12 mm blunt tipped balloon tipped Maxi cannula was placed in the fascial opening and the ballon inflated in order to occlude the fascial opening. The pneumoperitoneum was then established using carbon dioxide insufflation to a steady state pressure of 16 mmHg. The remaining trocars were then placed into the abdomen under direct vision of the 30 degree laparoscope taking care to make the incisions along Langers lines , spreading the subcutaneous tissues with a tonsil clamp, and confirming the entry site by depressing the abdominal wall prior to insertion of the trocar. A total of three other trocars were placed. The first was a 5 mm trocar in the upper midline position. The second was a 5 mm trocar placed in the anterior axillary line approximately 3 cm above the anterior superior iliac spine. The third was a 5 mm trocar placed to bisect the distance between the second and upper midline trocar. All of the trocars were placed without difficulty. The patient was then placed in reverse Trendelenburg position and was rotated slightly to their left. Graspers were placed through the second and third ports and a laparoscopic dissector was then placed through the upper midline cannula. What was immediately noticed was that there were dense adhesions to the right upper quadrant of the omentum to the underside of the liver making visualization of the gallbladder impossible. These adhesions were taken using primarily traction-countertraction. In this manner the gallbladder could be seen and grasped. The lysis of adhesions did cause some bleeding from the raw surface of the liver. The gallbladder was very thin walled and when the Prestige graspers grasped the wall, they graspers would cause a cholecystotomy. As the dissection progressed towards the neck of the gallbladder the dissection became even more difficult due to the fact that the gallbladder was decompressed and think walled. The cystic duct and artery were eventually dissected free from the surrounding tissues and despite the cystic artery being medial and slightly posterior to the cystic duct I doubly clipped this proximally and distally first to get it out of the way. The cystic duct was then doubly clipped proximally and distally and transected using laparoscopic scissors. Unfortunately, and transecting the cystic duct the tip of the scissors caused a small ductotomy in the common bile duct that was adherent to the back wall of the cystic duct. I thought this might be the common bile duct and as such try to prove it with numerous intraoperative cholangiograms by placing the Jerrit cholangiocatheter into this opening and shooting the cholangiograms. Unfortunately, in none of these cholangiograms could I get the dye to go proximally thus heightening my concern that the ductotomy was in the common bile duct. I tried placing the catheter through different port sites to see whether or not the orientation of the catheter might change the picture but it did not. I tried placing the patient in Trendelenburg position but this too did not allow me to place dye proximally in the hepatic tree. When I could not define the anatomy of the common bile duct via laparoscopic intraoperative cholangiography I opted to open the patient. The insufflation was released. An incision was made starting from my subxiphoid incision extending down subcostally on the right. I did not include the 2 laparoscopic incisions in this larger incision. The incision was taken down to the anterior fascia which was opened using Bovie electrocautery. The right rectus musculature was incised using Bovie electrocautery and the posterior fascia and peritoneum were grasped between 2 pickups opened without incident and then opened the length of the skin incision using Bovie electrocautery. A self-retaining retractor was placed. The gallbladder was then dissected free from the liver bed using serial application of Bovie electrocautery. This was removed from the operative field and sent off for pathologic evaluation. A Ray-Claudia was packed into the gallbladder fossa. This was for hemostatic purposes. I was then able to adequately visualize the common bile duct and determine that what I thought had occurred during the transection of the common bile duct is exactly what transpired. Although only the short cystic duct was clipped, it's back wall was densely adherent to the anterior wall of the the common bile duct and in transecting the cystic duct a small ductotomy was made in the common bile duct. The options available to me now were to close the ductotomy primarily and drain or place a T tube and drain. I opted to place the T tube as it would also allow me to obtain the cholangiogram and document forward and backward flow of the dye. The ductotomy was then opened distally using Barron scissors and in this ductotomy was placed a 12 Irish T-tube that was cut and trimmed appropriately. The ductotomy was then closed above and below this T-tube in order to secure the T-tube in place with a 4-0 Vicryl suture. An intraoperative cholangiogram was then obtained that showed good flow of the dye into the small bowel as well as up into the liver. It also confirmed that the ductotomy was in the common bile duct. At this point good hemostasis noted to be present at the gallbladder bed and the Ray-Claudia was removed. Small bleeders in the omentum that had been dissected free off the liver were addressed using 2-0 Vicryl suture ligatures. The right upper quadrant was copiously irrigated using warm sterile saline. The lateralmost laparoscopic incision was then used to place a 19 Irish Adán drain which was directed subhepatically into the gallbladder fossa and sutured at the skin with a 3-0 nylon suture which was Alejandro sandaled about the drain. A separate stab incision was made medially and through this incision was placed the T-tube. Great care was taken not to dislodge the T- tube. The T-tube was secured at the skin with a 3-0 nylon suture which was Alejandro sandaled about the drain. The umbilical fascial defect was then approximated using two 0 Vicryl sutures each in a figure-8 configuration. The posterior fascia and peritoneum were approximated using 0 PDS which was started medially and run laterally. The anterior fascia was similarly closed with an 0 PDS. Subcutaneous tissues as well as the skin incisions were all anesthetized using half percent Marcaine. All the skin incisions were approximated using skin chuy. At this point a time out was performed that confirmed that all the counts were correct, the procedure that was performed, the blood loss, the IV fluids administered, and the patients condition. Dressings were then applied. Having tolerated the procedure well, the patient was taken to short stay in good and stable condition.
[2016-12-04 14:27] LABS: BASOPHILS # (AUTO) 0.1 10^3/uL (0.0-0.1); BASOPHILS % (AUTO) 0.5 %; EOSINOPHILS % (AUTO) 0.1 %; HCT - HEMATOCRIT 41.7 % (42.0-52.0); HGB - HEMOGLOBIN 14.1 g/dL (14.0-18.0); LYMPHOCYTES # (AUTO) 0.7 10^3/uL (1.5-3.5); LYMPHOCYTES % (AUTO) 7.4 %; MEAN CORPUSCULAR HGB CONC 33.8 g/dL (32.0-36.0); MEAN CORPUSCULAR VOLUME 100.7 fL (80.0-94.0); MEAN PLATELET VOLUME 7.6 fL (7.4-11.4); MONOCYTES # (AUTO) 0.3 10^3/uL (0.0-1.0); MONOCYTES % (AUTO) 2.9 %; NEUTROPHILS # (AUTO) 8.6 10^3/uL (1.5-6.6); NEUTROPHILS % (AUTO) 89.1 %; RED BLOOD COUNT 4.14 10^6/uL (4.70-6.10); RED CELL DISTRIBUTION WIDTH 14.2 % (12.0-15.0); UNCORRECTED WHITE BLOOD COUNT 9.7 x10^3/uL; WHITE BLOOD COUNT 9.7 x10^3/uL (4.8-10.8)
[2016-12-04 14:37] LABS: ALBUMIN/GLOBULIN RATIO 1.7 (1.0-2.2); BILIRUBIN,TOTAL 0.9 mg/dL (0.2-1.0); CALCIUM 8.6 mg/dL (8.5-10.3); CREATININE 1.3 mg/dL (0.6-1.2); POTASSIUM 5.7 mmol/L (3.5-5.0); TOTAL PROTEIN 5.7 g/dL (6.7-8.2)
[2016-12-04] MEDS: HYDROmorphone PCA 10 MG IV PRN (14:59)
[2016-12-04] MEDS ORDERED: NS W/20 MEQ KCL 1,000 ML IV SCH (15:00)
[2016-12-04] MEDS: PANTOPRAZOLE 40 MG VIAL IVP SCH (15:07)
[2016-12-04] MEDS: ALLOPURINOL 100 MG TABLET PO SCH (20:46)
[2016-12-04] MEDS: ATORVASTATIN 10 MG TABLET PO SCH (20:47)
[2016-12-04] MEDS: SODIUM CHLORIDE FLUSH 0.9% 10 ML SYRINGE IVP PRN (20:48)
[2016-12-04] MEDS: ACETAMINOPHEN 1,000 MG/100 ML 100 ML IV PRN (22:23)
[2016-12-05] MEDS: INSULIN REGULAR HUMAN 100 UNIT/1 ML 10 ML MDV SUBQ SCH ×2 (00:01→06:28)
[2016-12-05] MEDS: SODIUM CHLORIDE 0.9% 1,000 ML IV SCH ×2 (02:46→16:06)
[2016-12-05] MEDS: PIPERACILLIN/TAZOBACTAM 3.375 GM in SODIUM CHLORIDE 0.9% MINIBAG 100 ML IV SCH ×4 (02:47→20:53)
[2016-12-05] MEDS: ACETAMINOPHEN 1,000 MG/100 ML 100 ML IV PRN (04:47)
[2016-12-05 05:18] LABS: BASOPHILS % (AUTO) 0.3 %; EOSINOPHILS # (AUTO) 0.1 10^3/uL (0.0-0.7); EOSINOPHILS % (AUTO) 0.6 %; HCT - HEMATOCRIT 41.3 % (42.0-52.0); HGB - HEMOGLOBIN 13.8 g/dL (14.0-18.0); LYMPHOCYTES # (AUTO) 1.9 10^3/uL (1.5-3.5); MEAN CORPUSCULAR HGB CONC 33.3 g/dL (32.0-36.0); MEAN CORPUSCULAR VOLUME 102.2 fL (80.0-94.0); MEAN PLATELET VOLUME 7.9 fL (7.4-11.4); MONOCYTES % (AUTO) 8.6 %; NEUTROPHILS # (AUTO) 8.8 10^3/uL (1.5-6.6); NEUTROPHILS % (AUTO) 74.5 %; RED BLOOD COUNT 4.04 10^6/uL (4.70-6.10); RED CELL DISTRIBUTION WIDTH 14.5 % (12.0-15.0); UNCORRECTED WHITE BLOOD COUNT 11.9 x10^3/uL; WHITE BLOOD COUNT 11.9 x10^3/uL (4.8-10.8)
[2016-12-05 05:28] LABS: ALBUMIN/GLOBULIN RATIO 1.6 (1.0-2.2); BILIRUBIN,TOTAL 0.7 mg/dL (0.2-1.0); CALCIUM 8.9 mg/dL (8.5-10.3); CREATININE 1.2 mg/dL (0.6-1.2); POTASSIUM 4.5 mmol/L (3.5-5.0); TOTAL PROTEIN 5.9 g/dL (6.7-8.2)
[2016-12-05] MEDS: SODIUM CHLORIDE FLUSH 0.9% 10 ML SYRINGE IVP PRN (06:28)
[2016-12-05] MEDS: SODIUM CHLORIDE FLUSH 0.9% 10 ML SYRINGE IVP SCH ×6 (06:28→21:50)
[2016-12-05] MEDS: PANTOPRAZOLE 40 MG VIAL IVP SCH (06:28)
[2016-12-05] MEDS: MULTIVITAMIN TABLET PO SCH (08:00)
[2016-12-05] MEDS: ENOXAPARIN 40 MG/0.4 ML SYRINGE SUBQ SCH (09:11)
[2016-12-05] MEDS: predniSONE 10 MG TABLET PO SCH (09:11)
[2016-12-05] MEDS: CHOLECALCIFEROL 1,000 UNIT TABLET PO SCH (09:11)
[2016-12-05] MEDS: METOPROLOL TARTRATE 50 MG TABLET PO SCH ×2 (09:11→20:54)
[2016-12-05] MEDS: LISINOPRIL 20 MG TABLET PO SCH ×2 (09:32→21:49)
[2016-12-05] MEDS: HYDROcod/ACETAM 5/325 MG TABLET PO PRN ×3 (09:39→20:54)
[2016-12-05] MEDS: POLYETHYLENE GLYCOL 3350 17 GM PACKET PO SCH (11:39)
[2016-12-05] MEDS: HYDROmorphone PCA 10 MG IV PRN (11:52)
[2016-12-05] MEDS ORDERED: INSULIN REGULAR HUMAN 100 UNIT/1 ML 10 ML MDV SUBQ SCH (12:00)
--- NOTE | 2016-12-05 13:43 | PROVIDER PROGRESS NOTE ---
Subjective - General Admit Date: 12/03/16 Procedure Date: 12/04/16 Post Op Days: 1 Procedure Performed: Laparoscopic cholecystectomy with intraoperative chaolangiography converted - Review of Systems Wound/Incisions: positive: Dressing dry and intact Drain Type: 19 Fr Adán in subhepatic space and 12 Fr T tube in common bile duct Drain Output Description: Serosanguinous from Adán, bile from T tube General: positive: Other (In pain and would rather be left to lay in bed, watch football and sleep.) HEENT: positive: No symptoms Pulmonary: positive: No symptoms Cardiovascular: positive: No symptoms Gastrointestinal: positive: Nausea (Mild.), Abdominal pain Genitourinary: positive: No symptoms Musculoskeletal: positive: No symptoms Skin: positive: No symptoms Psychiatric: positive: No symptoms Objective - Patient Data Reviewed Vital Signs: Yes Vital Signs: Vital Signs x48h Temp Pulse Resp BP BP Pulse Ox 12/05/16 13:00 99 15 150/85 H 98 12/05/16 12:00 37.4 C 87 14 145/84 H 98 12/05/16 11:00 87 12 131/74 H 95 12/05/16 09:53 84 13 120/67 96 12/05/16 09:11 116/66 12/05/16 09:00 87 10 L 116/66 96 12/05/16 08:00 37.0 C 76 17 104/65 98 12/05/16 07:00 85 12 91/54 L 94 12/05/16 06:00 88 11 L 95/55 L 94 Weight: Weight 12/03/16 12/04/16 12/05/16 23:59 23:59 23:59 Weight (kg) 80.5 kg Intake & Output: Intake and Output Totals x24h 12/03/16 12/04/16 12/05/16 23:59 23:59 23:59 Intake Total 2804 1575 Output Total 100 2985 1595 Balance -100 -181 -20 - Lab Results Lab Results: 12/05/16 04:46 12/05/16 04:46 Other Lab Results: Lab Results x24hrs 12/05/16 12/05/16 12/05/16 Range/Units 11:47 07:36 04:46 WBC 11.9 H (4.8-10.8) x10^3/uL RBC 4.04 L (4.70-6.10) 10^6/uL Hgb 13.8 L (14.0-18.0) g/dL Hct 41.3 L (42.0-52.0) % MCV 102.2 H (80.0-94.0) fL MCH 34.0 H (27.0-31.0) pg MCHC 33.3 (32.0-36.0) g/dL RDW 14.5 (12.0-15.0) % Plt Count 115 L (130-450) 10^3/uL MPV 7.9 (7.4-11.4) fL Neut # 8.8 H (1.5-6.6) 10^3/uL Lymph # 1.9 (1.5-3.5) 10^3/uL [place] # 1.0 (0.0-1.0) 10^3/uL Eos # 0.1 (0.0-0.7) 10^3/uL Baso # 0.0 (0.0-0.1) 10^3/uL Absolute Nucleated RBC 0.01 x10^3/uL Nucleated RBCs 0.0 /100WBC Sodium (135-145) mmol/L Potassium (3.5-5.0) mmol/L Chloride (101-111) mmol/L Carbon Dioxide (21-32) mmol/L Anion Gap (6-13) BUN (6-20) mg/dL Creatinine (0.6-1.2) mg/dL Estimated GFR (MDRD) (>89) Glucose (70-100) mg/dL POC Whole Bld Glucose 221 H 210 H (70 - 100) mg/dL Calcium (8.5-10.3) mg/dL Total Bilirubin (0.2-1.0) mg/dL AST (10-42) IU/L ALT (10-60) IU/L Alkaline Phosphatase (42-121) IU/L Total Protein (6.7-8.2) g/dL Albumin (3.2-5.5) g/dL Globulin (2.1-4.2) g/dL Albumin/Globulin Ratio (1.0-2.2) Lipase (22-51) U/L 12/05/16 12/04/16 12/04/16 Range/Units 04:46 23:21 17:50 WBC (4.8-10.8) x10^3/uL RBC (4.70-6.10) 10^6/uL Hgb (14.0-18.0) g/dL Hct (42.0-52.0) % MCV (80.0-94.0) fL MCH (27.0-31.0) pg MCHC (32.0-36.0) g/dL RDW (12.0-15.0) % Plt Count (130-450) 10^3/uL MPV (7.4-11.4) fL Neut # (1.5-6.6) 10^3/uL Lymph # (1.5-3.5) 10^3/uL [place] # (0.0-1.0) 10^3/uL Eos # (0.0-0.7) 10^3/uL Baso # (0.0-0.1) 10^3/uL Absolute Nucleated RBC x10^3/uL Nucleated RBCs /100WBC Sodium 137 (135-145) mmol/L Potassium 4.5 (3.5-5.0) mmol/L Chloride 108 (101-111) mmol/L Carbon Dioxide 22 (21-32) mmol/L Anion Gap 7.0 (6-13) BUN 19 (6-20) mg/dL Creatinine 1.2 (0.6-1.2) mg/dL Estimated GFR (MDRD) 61 L (>89) Glucose 217 H (70-100) mg/dL POC Whole Bld Glucose 220 H 252 H (70 - 100) mg/dL Calcium 8.9 (8.5-10.3) mg/dL Total Bilirubin 0.7 (0.2-1.0) mg/dL AST 63 H (10-42) IU/L ALT 70 H (10-60) IU/L Alkaline Phosphatase 32 L (42-121) IU/L Total Protein 5.9 L (6.7-8.2) g/dL Albumin 3.6 (3.2-5.5) g/dL Globulin 2.3 (2.1-4.2) g/dL Albumin/Globulin Ratio 1.6 (1.0-2.2) Lipase 74 H (22-51) U/L 12/04/16 12/04/16 12/04/16 Range/Units 14:17 14:17 14:10 WBC 9.7 (4.8-10.8) x10^3/uL RBC 4.14 L (4.70-6.10) 10^6/uL Hgb 14.1 (14.0-18.0) g/dL Hct 41.7 L (42.0-52.0) % MCV 100.7 H (80.0-94.0) fL MCH 34.0 H (27.0-31.0) pg MCHC 33.8 (32.0-36.0) g/dL RDW 14.2 (12.0-15.0) % Plt Count 119 L (130-450) 10^3/uL MPV 7.6 (7.4-11.4) fL Neut # 8.6 H (1.5-6.6) 10^3/uL Lymph # 0.7 L (1.5-3.5) 10^3/uL [place] # 0.3 (0.0-1.0) 10^3/uL Eos # 0.0 (0.0-0.7) 10^3/uL Baso # 0.1 (0.0-0.1) 10^3/uL Absolute Nucleated RBC 0.00 x10^3/uL Nucleated RBCs 0.0 /100WBC Sodium 134 L (135-145) mmol/L Potassium 5.7 H (3.5-5.0) mmol/L Chloride 106 (101-111) mmol/L Carbon Dioxide 20 L (21-32) mmol/L Anion Gap 8.0 (6-13) BUN 19 (6-20) mg/dL Creatinine 1.3 H (0.6-1.2) mg/dL Estimated GFR (MDRD) 56 L (>89) Glucose 270 H (70-100) mg/dL POC Whole Bld Glucose 281 H (70 - 100) mg/dL Calcium 8.6 (8.5-10.3) mg/dL Total Bilirubin 0.9 (0.2-1.0) mg/dL AST 82 H (10-42) IU/L ALT 80 H (10-60) IU/L Alkaline Phosphatase 34 L (42-121) IU/L Total Protein 5.7 L (6.7-8.2) g/dL Albumin 3.6 (3.2-5.5) g/dL Globulin 2.1 (2.1-4.2) g/dL Albumin/Globulin Ratio 1.7 (1.0-2.2) Lipase (22-51) U/L - Current Medications Current Medications: Current Medications Generic Name Dose Route Start Last Admin Trade Name Freq PRN Reason Stop Dose Admin Acetaminophen/Hydrocodone Bitart 2 tab 12/03/16 17:44 12/05/16 09:39 [place] 5/325 PO 2 tab Q4HR PRN Administration PAIN Allopurinol 300 mg 12/04/16 21:00 12/04/16 20:46 Zyloprim PO 300 mg QPM CARMELO Administration Atorvastatin Calcium 20 mg 12/03/16 21:00 12/04/16 20:47 Lipitor PO 20 mg QPM CARMELO Administration Cholecalciferol 1,000 unit 12/04/16 09:00 12/05/16 09:11 Vitamin D3 PO 1,000 unit DAILY CARMELO Administration Enoxaparin Sodium 40 mg 12/04/16 09:00 12/05/16 09:11 Lovenox SUBQ 40 mg DAILY CARMELO Administration Famotidine 20 mg 12/04/16 09:00 12/04/16 08:27 Pepcid PO 20 mg DAILY CARMELO Administration Hydromorphone HCl 1 mg 12/03/16 16:37 12/03/16 19:42 Dilaudid Inj IVP 1 mg Q2HR PRN Administration Pain 8 to 10 Hydromorphone HCl 0 mg 12/04/16 14:04 12/05/16 11:52 Dilaudid Lock Assembler (Use Lock Assembler Order Set) IV 10 mg PRN PRN Administration PAIN Protocol Piperacillin Sod/Tazobactam 100 mls @ 200 mls/hr 12/04/16 14:00 12/05/16 07:58 Sod 3.375 gm/ Sodium Chloride IV 200 mls/hr Q6H CARMELO Administration Sodium Chloride 1,000 mls @ 100 mls/hr 12/04/16 16:17 12/05/16 02:46 Normal Saline 0.9% IV 100 mls/hr .Q10H CARMELO Administration Acetaminophen 100 mls @ 400 mls/hr 12/04/16 21:18 12/05/16 04:47 Ofirmev IV 400 mls/hr Q6HR PRN Administration PAIN Insulin Human Regular 2 - 10 unit 12/05/16 12:00 12/05/16 12:05 Novolin R SUBQ 4 unit Q6HR CARMELO Administration Protocol Lisinopril 20 mg 12/04/16 21:19 12/05/16 09:32 Zestril PO Not Given BID CARMELO Metoprolol Tartrate 50 mg 12/03/16 21:00 12/05/16 09:11 Lopressor PO 50 mg BID CARMELO Administration Multivitamins 1 tab 12/04/16 08:00 12/04/16 08:28 Theragran PO 1 tab DAILYWM CARMELO Administration Ondansetron HCl 4 mg 12/03/16 16:37 12/03/16 17:50 Zofran Inj IVP 4 mg Q6HR PRN Administration Nausea / Vomiting Pantoprazole Sodium 40 mg 12/04/16 15:00 12/05/16 06:28 Protonix IVP 40 mg QDAC CARMELO Administration Polyethylene Glycol 17 gm 12/04/16 09:00 12/05/16 11:39 Miralax PO Not Given DAILY CARMELO Prednisone 10 mg 12/04/16 08:00 12/05/16 09:11 Deltasone PO 10 mg DAILYWM CARMELO Administration Sodium Chloride 10 ml 12/03/16 16:37 12/05/16 06:28 Normal Saline Flush 0.9% IVP 20 ml PRN PRN Administration NEEDED PER PROVIDER ORDERS Sodium Chloride 10 ml 12/03/16 22:00 12/05/16 06:28 Normal Saline Flush 0.9% IVP 10 ml Q8HR CARMELO Administration Sodium Chloride 10 ml 12/04/16 14:00 12/05/16 06:29 Normal Saline Flush 0.9% IVP Not Given Q8HR CARMELO - Physical Exam Wound/Incisions: positive: Dressing dry and intact General Appearance: positive: Moderate distress (Due to abdominal pain.) Eyes Bilateral: positive: No lid inflammation, Conjunctivae nml, No scleral icterus, Other (Light continues to bother his eyes. Wears sunglasses.) Neck: positive: Trachea midline Respiratory: positive: Chest non-tender Cardiovascular: positive: Regular rate & rhythm Abdomen: positive: Tenderness, Abnml bowel sounds (Quiet.) Skin: positive: Color nml Neurologic/Psychiatric: positive: Oriented x3 Impression/Plan - Problem List Problem List: D1 s/p laparoscopic cholecystectomy with intraoperative cholangiography converted to open cholecystectomy with placement of T tube and cholangiography, placement of subhepatic drain 1) FEN Start clear liquids and see how patient tolerates. Continue IVF for now. 2) ID Continue Zosyn for 3 days today is D2/3. 3) DVT prophylaxis Continue TEDs and venadynes. Start ambulation. 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 Educate and if this does not work increase dose. When the patient has recovered enough, the plan is to send the patient home with the T tube and in 6 weeks obtain a T tube cholangiogram. If normal D/C T tube. If there are stones on the T tube cholangiogram then intervention can be done through the T tube site.
--- NOTE | 2016-12-05 17:49 | PROVIDER PROGRESS NOTE ---
Assessment/Plan - Problem List (1) Acute cholecystitis Assessment/Plan: acute onset of abdominal pain after eating fatty food, pain radiate to back, US reveals cholecystitis, Surgery consulted IVF pain control Zosyn IV day 2 Patient is POD #1 after cholecystectomy Patient still nauseated this am and has pain RUQ but better controlled Improving (2) Acute pancreatitis Conclusion/Plan: Improved S/p cholecystectomy Lipase down to 74 Qualifiers: Pancreatitis type: unspecified pancreatitis type Acute pancreatitis complication: unspecified Qualified Code(s): K85.90 - Acute pancreatitis without necrosis or infection, unspecified (3) Diabetes Conclusion/Plan: stable, continue treatment check A1C resumed of home meds after reconciliation ACHS, slide scale (4) HTN (hypertension) Conclusion/Plan: stable, continue treatment home meds resumed added Clonidine as PRN (5) Gout Conclusion/Plan: stable, resumed home meds, lab test monitor (6) Hyperlipidemia Conclusion/Plan: resumed home meds (7) Myelodysplastic disease Conclusion/Plan: stable, closely monitor with daily lab test, vital check, tele history of leukemia with stem cell transplant, [id number] with subsequent myelodysplastic syndrome stable, closely monitor with daily lab, vital, tele Qualifiers: Pancreatitis type: unspecified pancreatitis type Acute pancreatitis complication: unspecified Qualified Code(s): K85.90 - Acute pancreatitis without necrosis or infection, unspecified - Current Meds Current Meds: Current Medications Generic Name Dose Route Start Last Admin Trade Name Freq PRN Reason Stop Dose Admin Acetaminophen/Hydrocodone Bitart 2 tab 12/03/16 17:44 12/05/16 13:57 [place] 5/325 PO 2 tab Q4HR PRN Administration PAIN Allopurinol 300 mg 12/04/16 21:00 12/04/16 20:46 Zyloprim PO 300 mg QPM CARMELO Administration Atorvastatin Calcium 20 mg 12/03/16 21:00 12/04/16 20:47 Lipitor PO 20 mg QPM CARMELO Administration Cholecalciferol 1,000 unit 12/04/16 09:00 12/05/16 09:11 Vitamin D3 PO 1,000 unit DAILY CARMELO Administration Enoxaparin Sodium 40 mg 12/04/16 09:00 12/05/16 09:11 Lovenox SUBQ 40 mg DAILY CARMELO Administration Famotidine 20 mg 12/04/16 09:00 12/04/16 08:27 Pepcid PO 20 mg DAILY CARMELO Administration Hydromorphone HCl 1 mg 12/03/16 16:37 12/03/16 19:42 Dilaudid Inj IVP 1 mg Q2HR PRN Administration Pain 8 to 10 Hydromorphone HCl 0 mg 12/04/16 14:04 12/05/16 11:52 Dilaudid Project Management Analyst (Use Project Management Analyst Order Set) IV 10 mg PRN PRN Administration PAIN Protocol Piperacillin Sod/Tazobactam 100 mls @ 200 mls/hr 12/04/16 14:00 12/05/16 16:06 Sod 3.375 gm/ Sodium Chloride IV 200 mls/hr Q6H CARMELO Administration Sodium Chloride 1,000 mls @ 100 mls/hr 12/04/16 16:17 12/05/16 16:06 Normal Saline 0.9% IV 100 mls/hr .Q10H CARMELO Administration Acetaminophen 100 mls @ 400 mls/hr 12/04/16 21:18 12/05/16 04:47 Ofirmev IV 400 mls/hr Q6HR PRN Administration PAIN Lisinopril 20 mg 12/04/16 21:19 12/05/16 09:32 Zestril PO Not Given BID CARMELO Metoprolol Tartrate 50 mg 12/03/16 21:00 12/05/16 09:11 Lopressor PO 50 mg BID CARMELO Administration Multivitamins 1 tab 12/04/16 08:00 12/04/16 08:28 Theragran PO 1 tab DAILYWM CARMELO Administration Ondansetron HCl 4 mg 12/03/16 16:37 12/03/16 17:50 Zofran Inj IVP 4 mg Q6HR PRN Administration Nausea / Vomiting Polyethylene Glycol 17 gm 12/04/16 09:00 12/05/16 11:39 Miralax PO Not Given DAILY CARMELO Prednisone 10 mg 12/04/16 08:00 12/05/16 09:11 Deltasone PO 10 mg DAILYWM CARMELO Administration Sodium Chloride 10 ml 12/03/16 16:37 12/05/16 06:28 Normal Saline Flush 0.9% IVP 20 ml PRN PRN Administration NEEDED PER PROVIDER ORDERS Sodium Chloride 10 ml 12/03/16 22:00 12/05/16 16:07 Normal Saline Flush 0.9% IVP 10 ml Q8HR CARMELO Administration Sodium Chloride 10 ml 12/04/16 14:00 12/05/16 06:29 Normal Saline Flush 0.9% IVP Not Given Q8HR CARMELO - Lab Result Lab results reviewed: Yes Fish Bone Diagrams: 12/05/16 04:46 12/05/16 04:46 - Diagnostic Imaging Results Diagnostic Imaging Results: Final report reviewed - Additional Planning Condition/Complexity: Guarded My Orders: My Active Orders 12/05/16 11:17 Initiate Hypoglycemia Protocol [RC] .protocol 12/05/16 17:34 Blood Glucose Checks - Eating [RC] 0800,1200,1700,2100 Initiate Hypoglycemia Protocol [RC] .protocol 12/05/16 21:00 Insulin Aspart [NovoLOG] 3 - 11 unit SUBQ 0800,1200,1700,2100 Consult/Specialty: Surgery Plan Discussed with:: Patient Time Spent: 31-60 minutes Subjective - Subjective Patient Reports: Abdominal Pain (right upper quadrant abd pain still present. Patient states he also feels nauseated. Denies any chest pain or fevers overnight. Does not feel short of breath.) Nursing Reports: No Complaints Objective Vital Signs: Vital Signs - 24 hr 12/04/16 12/04/16 12/04/16 18:00 19:00 19:42 Temperature Heart Rate [ 100 101 H Apical] Heart Rate [ Monitoring electrodes] Respiratory 17 16 14 Rate Blood Pressure Blood Pressure 121/69 121/69 [Right Brachial artery] O2 Saturation 97 96 12/04/16 12/04/16 12/04/16 20:00 20:47 20:59 Temperature 36.9 C Heart Rate [ Apical] Heart Rate [ 95 93 Monitoring electrodes] Respiratory 12 11 L Rate Blood Pressure 112/69 Blood Pressure 112/69 118/77 [Right Brachial artery] O2 Saturation 98 99 12/04/16 12/04/16 12/05/16 22:00 23:00 00:00 Temperature 36.7 C Heart Rate [ Apical] Heart Rate [ 93 90 85 Monitoring electrodes] Respiratory 16 11 L 11 L Rate Blood Pressure Blood Pressure 121/70 103/65 103/67 [Right Brachial artery] O2 Saturation 97 98 98 12/05/16 12/05/16 12/05/16 00:59 01:00 02:00 Temperature Heart Rate [ Apical] Heart Rate [ 84 81 Monitoring electrodes] Respiratory 13 13 10 L Rate Blood Pressure Blood Pressure 94/57 L 92/62 [Right Brachial artery] O2 Saturation 96 99 12/05/16 12/05/16 12/05/16 03:00 04:00 05:00 Temperature 36.7 C Heart Rate [ Apical] Heart Rate [ 80 78 80 Monitoring electrodes] Respiratory 11 L 12 15 Rate Blood Pressure Blood Pressure 98/62 95/82 H 114/64 [Right Brachial artery] O2 Saturation 99 98 94 12/05/16 12/05/16 12/05/16 06:00 07:00 08:00 Temperature 37.0 C Heart Rate [ Apical] Heart Rate [ 88 85 76 Monitoring electrodes] Respiratory 11 L 12 17 Rate Blood Pressure Blood Pressure 95/55 L 91/54 L 104/65 [Right Brachial artery] O2 Saturation 94 94 98 12/05/16 12/05/16 12/05/16 09:00 09:11 09:53 Temperature Heart Rate [ Apical] Heart Rate [ 87 84 Monitoring electrodes] Respiratory 10 L 13 Rate Blood Pressure 116/66 Blood Pressure 116/66 120/67 [Right Brachial artery] O2 Saturation 96 96 12/05/16 12/05/16 12/05/16 11:00 12:00 13:00 Temperature 37.4 C Heart Rate [ Apical] Heart Rate [ 87 87 99 Monitoring electrodes] Respiratory 12 14 15 Rate Blood Pressure Blood Pressure 131/74 H 145/84 H 150/85 H [Right Brachial artery] O2 Saturation 95 98 98 12/05/16 12/05/16 12/05/16 14:00 15:00 16:00 Temperature 37.3 C Heart Rate [ Apical] Heart Rate [ 102 H 109 H 101 H Monitoring electrodes] Respiratory 18 16 18 Rate Blood Pressure Blood Pressure 138/79 H 125/74 125/74 [Right Brachial artery] O2 Saturation 95 96 95 12/05/16 17:00 Temperature Heart Rate [ Apical] Heart Rate [ 96 Monitoring electrodes] Respiratory 12 Rate Blood Pressure Blood Pressure 106/72 [Right Brachial artery] O2 Saturation 95 Oxygen O2 Source Room air I&O (Last 24 Hrs): Intake and Output Totals x24h 12/03/16 12/04/16 12/05/16 23:59 23:59 23:59 Intake Total 2804 2150 Output Total 100 2985 1865 Balance -100 -181 285 General: Alert, Oriented x3, Cooperative, No acute distress HEENT: Atraumatic, PERRLA, EOMI, Mucous membr. moist/pink Neck: Supple, No JVD, No thyromegaly, +2 carotid pulse wo bruit, No LAD Lymphatic: no adenopathy Neuro: Alert, Non Focal, CN 2-12 Grossly Intact, Oriented Times 3 Cardiovascular: Regular rate, Normal S1, Normal S2, No murmurs Respiratory: Chest non-tender, No respiratory distress, Breath sounds nml Abdomen: Soft, Other (Tenderness around surgical site) Extremities: No clubbing, No cyanosis, No edema, Normal pulses Skin: No rashes, No breakdown - Results Results: Laboratory Results WBC 11.9 x10^3/uL (4.8-10.8) H 12/05/16 04:46 RBC 4.04 10^6/uL (4.70-6.10) L 12/05/16 04:46 Hgb 13.8 g/dL (14.0-18.0) L 12/05/16 04:46 Hct 41.3 % (42.0-52.0) L 12/05/16 04:46 MCV 102.2 fL (80.0-94.0) H 12/05/16 04:46 MCH 34.0 pg (27.0-31.0) H 12/05/16 04:46 MCHC 33.3 g/dL (32.0-36.0) 12/05/16 04:46 RDW 14.5 % (12.0-15.0) 12/05/16 04:46 Plt Count 115 10^3/uL (130-450) L 12/05/16 04:46 MPV 7.9 fL (7.4-11.4) 12/05/16 04:46 Neut # 8.8 10^3/uL (1.5-6.6) H 12/05/16 04:46 Lymph # 1.9 10^3/uL (1.5-3.5) 12/05/16 04:46 [place] # 1.0 10^3/uL (0.0-1.0) 12/05/16 04:46 Eos # 0.1 10^3/uL (0.0-0.7) 12/05/16 04:46 Baso # 0.0 10^3/uL (0.0-0.1) 12/05/16 04:46 Absolute Nucleated RBC 0.01 x10^3/uL 12/05/16 04:46 Nucleated RBCs 0.0 /100WBC 12/05/16 04:46 Manual Slide Review Indicated 12/03/16 10:02 WBC Morphology NORMAL APPEARANCE (NORMAL) 12/03/16 10:02 Platelet Estimate DECREASED (<130,000) (NORMAL) 12/03/16 10:02 Platelet Morphology NORMAL APPEARANCE (NORMAL) 12/03/16 10:02 RBC Morph Micro Appear NORMAL APPEARANCE (NORMAL) 12/03/16 10:02 Sodium 137 mmol/L (135-145) 12/05/16 04:46 Potassium 4.5 mmol/L (3.5-5.0) 12/05/16 04:46 Chloride 108 mmol/L (101-111) 12/05/16 04:46 Carbon Dioxide 22 mmol/L (21-32) 12/05/16 04:46 Anion Gap 7.0 (6-13) 12/05/16 04:46 BUN 19 mg/dL (6-20) 12/05/16 04:46 Creatinine 1.2 mg/dL (0.6-1.2) 12/05/16 04:46 Estimated GFR (MDRD) 61 (>89) L 12/05/16 04:46 Glucose 217 mg/dL (70-100) H 12/05/16 04:46 POC Whole Bld Glucose 221 mg/dL (70 - 100) H 12/05/16 11:47 Glycated Hemoglobin 8.1 % (4.6-6.2) H 12/03/16 10:02 Estim Average Glucose 186 (70-100) H 12/03/16 10:02 Calcium 8.9 mg/dL (8.5-10.3) 12/05/16 04:46 Magnesium 2.2 mg/dL (1.7-2.8) 12/04/16 05:29 Total Bilirubin 0.7 mg/dL (0.2-1.0) 12/05/16 04:46 AST 63 IU/L (10-42) H 12/05/16 04:46 ALT 70 IU/L (10-60) H 12/05/16 04:46 Alkaline Phosphatase 32 IU/L (42-121) L 12/05/16 04:46 Total Protein 5.9 g/dL (6.7-8.2) L 12/05/16 04:46 Albumin 3.6 g/dL (3.2-5.5) 12/05/16 04:46 Globulin 2.3 g/dL (2.1-4.2) 12/05/16 04:46 Albumin/Globulin Ratio 1.6 (1.0-2.2) 12/05/16 04:46 Amylase 313 U/L (28-100) H 12/03/16 10:02 Lipase 74 U/L (22-51) H 12/05/16 04:46
[2016-12-05] MEDS: ALLOPURINOL 100 MG TABLET PO SCH (20:54)
[2016-12-05] MEDS: ATORVASTATIN 10 MG TABLET PO SCH (20:54)
[2016-12-05] MEDS: INSULIN ASPART 300 UNIT/3 ML PEN SUBQ SCH (20:59)
[2016-12-06] MEDS: PIPERACILLIN/TAZOBACTAM 3.375 GM in SODIUM CHLORIDE 0.9% MINIBAG 100 ML IV SCH ×3 (02:34→14:45)
[2016-12-06] MEDS: HYDROcod/ACETAM 5/325 MG TABLET PO PRN ×5 (03:55→21:16)
[2016-12-06] MEDS: SODIUM CHLORIDE 0.9% 1,000 ML IV SCH ×2 (04:15→11:12)
[2016-12-06 05:48] LABS: BASOPHILS # (AUTO) 0.1 10^3/uL (0.0-0.1); BASOPHILS % (AUTO) 0.6 %; EOSINOPHILS # (AUTO) 0.1 10^3/uL (0.0-0.7); EOSINOPHILS % (AUTO) 1.2 %; HGB - HEMOGLOBIN 13.3 g/dL (14.0-18.0); LYMPHOCYTES % (AUTO) 20.3 %; MEAN CORPUSCULAR HEMOGLOBIN 34.3 pg (27.0-31.0); MEAN CORPUSCULAR VOLUME 100.9 fL (80.0-94.0); MEAN PLATELET VOLUME 8.2 fL (7.4-11.4); MONOCYTES % (AUTO) 9.6 %; NEUTROPHILS # (AUTO) 6.8 10^3/uL (1.5-6.6); NEUTROPHILS % (AUTO) 68.3 %; RED BLOOD COUNT 3.87 10^6/uL (4.70-6.10); RED CELL DISTRIBUTION WIDTH 14.5 % (12.0-15.0); UNCORRECTED WHITE BLOOD COUNT 9.9 x10^3/uL; WHITE BLOOD COUNT 9.9 x10^3/uL (4.8-10.8)
[2016-12-06 05:55] LABS: ALBUMIN/GLOBULIN RATIO 1.4 (1.0-2.2); BILIRUBIN,TOTAL 1.1 mg/dL (0.2-1.0); CREATININE 0.9 mg/dL (0.6-1.2); POTASSIUM 4.1 mmol/L (3.5-5.0); TOTAL PROTEIN 6.1 g/dL (6.7-8.2)
[2016-12-06] MEDS: SODIUM CHLORIDE FLUSH 0.9% 10 ML SYRINGE IVP SCH ×4 (06:05→21:17)
[2016-12-06] MEDS: INSULIN ASPART 300 UNIT/3 ML PEN SUBQ SCH ×4 (07:58→21:14)
[2016-12-06] MEDS: predniSONE 10 MG TABLET PO SCH (08:00)
[2016-12-06] MEDS: MULTIVITAMIN TABLET PO SCH (08:00)
[2016-12-06] MEDS: FAMOTIDINE 20 MG TABLET PO SCH (09:26)
[2016-12-06] MEDS: METOPROLOL TARTRATE 50 MG TABLET PO SCH ×2 (09:26→21:16)
[2016-12-06] MEDS: LISINOPRIL 20 MG TABLET PO SCH ×2 (09:26→21:16)
[2016-12-06] MEDS: CHOLECALCIFEROL 1,000 UNIT TABLET PO SCH (09:26)
[2016-12-06] MEDS: POLYETHYLENE GLYCOL 3350 17 GM PACKET PO SCH (09:27)
[2016-12-06] MEDS: ENOXAPARIN 40 MG/0.4 ML SYRINGE SUBQ SCH (09:27)
[2016-12-06] MEDS ORDERED: diphenhydrAMINE 25 MG CAPSULE PO PRN (11:05)
--- NOTE | 2016-12-06 17:47 | PROVIDER PROGRESS NOTE ---
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 and get patient to take more pO meds Zosyn IV x 2 days will stop as patients gallbladder has been removed Patient is POD #2 after cholecystectomy Patient still nauseated this am and continues to have pain RUQ Advance diet Improving slowly (2) Acute pancreatitis Conclusion/Plan: Improved S/p cholecystectomy Lipase down to 38 Qualifiers: Pancreatitis type: unspecified pancreatitis type Acute pancreatitis complication: unspecified Qualified Code(s): K85.90 - Acute pancreatitis without necrosis or infection, unspecified (3) Diabetes Conclusion/Plan: stable, continue treatment check A1C resumed home meds after reconciliation ACHS, slide scale (4) HTN (hypertension) Conclusion/Plan: stable, continue treatment home meds resumed added Clonidine as PRN (5) Gout Conclusion/Plan: stable, resumed home meds, lab test monitor (6) Hyperlipidemia Conclusion/Plan: resumed home meds (7) Myelodysplastic disease Conclusion/Plan: stable, closely monitor with daily lab test, vital check, tele history of leukemia with stem cell transplant, [id number] with subsequent myelodysplastic syndrome stable, closely monitor with daily lab, vital, tele Qualifiers: Pancreatitis type: unspecified pancreatitis type Acute pancreatitis complication: unspecified Qualified Code(s): K85.90 - Acute pancreatitis without necrosis or infection, unspecified - Current Meds Current Meds: Current Medications Generic Name Dose Route Start Last Admin Trade Name Freq PRN Reason Stop Dose Admin Acetaminophen/Hydrocodone Bitart 2 tab 12/03/16 17:44 12/06/16 16:19 [place] 5/325 PO 2 tab Q4HR PRN Administration PAIN Allopurinol 300 mg 12/04/16 21:00 12/05/16 20:54 Zyloprim PO 300 mg QPM CARMELO Administration Atorvastatin Calcium 20 mg 12/03/16 21:00 12/05/16 20:54 Lipitor PO 20 mg QPM CARMELO Administration Cholecalciferol 1,000 unit 12/04/16 09:00 12/06/16 09:26 Vitamin D3 PO 1,000 unit DAILY CARMELO Administration Diphenhydramine HCl 25 mg 12/06/16 11:05 12/06/16 11:19 Benadryl PO 25 mg Q4HR PRN Administration Allergy Symptoms Enoxaparin Sodium 40 mg 12/04/16 09:00 12/06/16 09:27 Lovenox SUBQ 40 mg DAILY CARMELO Administration Famotidine 20 mg 12/04/16 09:00 12/06/16 09:26 Pepcid PO 20 mg DAILY CARMELO Administration Piperacillin Sod/Tazobactam 100 mls @ 200 mls/hr 12/04/16 14:00 12/06/16 14:45 Sod 3.375 gm/ Sodium Chloride IV 200 mls/hr Q6H CARMELO Administration Acetaminophen 100 mls @ 400 mls/hr 12/04/16 21:18 12/05/16 04:47 Ofirmev IV 400 mls/hr Q6HR PRN Administration PAIN Insulin Aspart 3 - 11 unit 12/05/16 21:00 12/06/16 17:15 Novolog SUBQ 9 unit 0800,1200,1700,2100 CARMELO Administration Protocol Lisinopril 20 mg 12/04/16 21:19 12/06/16 09:26 Zestril PO 20 mg BID CARMELO Administration Metoprolol Tartrate 50 mg 12/03/16 21:00 12/06/16 09:26 Lopressor PO 50 mg BID CARMELO Administration Multivitamins 1 tab 12/04/16 08:00 12/06/16 08:00 Theragran PO 1 tab DAILYWM CARMELO Administration Polyethylene Glycol 17 gm 12/04/16 09:00 12/06/16 09:27 Miralax PO 17 gm DAILY CARMELO Administration Prednisone 10 mg 12/04/16 08:00 12/06/16 08:00 Deltasone PO 10 mg DAILYWM CARMELO Administration Sodium Chloride 10 ml 12/04/16 14:00 12/06/16 14:45 Normal Saline Flush 0.9% IVP 10 ml Q8HR CARMELO Administration - Lab Result Lab results reviewed: Yes Fish Bone Diagrams: 12/06/16 04:39 12/06/16 04:39 - Diagnostic Imaging Results Diagnostic Imaging Results: Final report reviewed - Additional Planning Condition/Complexity: Improved My Orders: My Active Orders 12/05/16 17:34 Blood Glucose Checks - Eating [RC] 0800,1200,1700,2100 Initiate Hypoglycemia Protocol [RC] .protocol 12/05/16 21:00 Insulin Aspart [NovoLOG] 3 - 11 unit SUBQ 0800,1200,1700,2100 12/06/16 11:05 diphenhydrAMINE [Benadryl] 25 mg PO Q4HR PRN 12/06/16 11:07 HYDROmorphone INJ [Dilaudid Inj] 1 mg IVP Q6H PRN 12/06/16 21:00 Insulin Glargine [Lantus Solostar] 10 unit SUBQ QPM 12/06/16 Lunch Carb-controlled Diet [DIET] Consult/Specialty: Surgery Plan Discussed with:: Patient Time Spent: 31-60 minutes Subjective - Subjective Patient Reports: Abdominal Pain (Still having abdominal pain and nausea. Improved slightly. No fevers.), Nausea Objective Vital Signs: Vital Signs - 24 hr 12/05/16 12/05/16 12/05/16 18:00 18:34 20:00 Temperature 37.2 C Heart Rate [ 88 96 Monitoring electrodes] Respiratory 16 10 L Rate Blood Pressure Blood Pressure 105/59 L 115/75 [Right Brachial artery] O2 Saturation 18 L 95 12/05/16 12/05/16 12/05/16 20:54 21:00 22:00 Temperature Heart Rate [ 93 95 Monitoring electrodes] Respiratory 10 L 21 Rate Blood Pressure 131/78 H Blood Pressure 131/78 H 128/73 [Right Brachial artery] O2 Saturation 95 94 12/05/16 12/05/16 12/06/16 23:00 23:54 01:00 Temperature 36.9 C Heart Rate [ 89 85 Monitoring electrodes] Respiratory 19 10 L Rate Blood Pressure Blood Pressure 133/79 H 141/80 H [Right Brachial artery] O2 Saturation 95 98 12/06/16 12/06/16 12/06/16 02:00 03:00 04:00 Temperature 37.0 C Heart Rate [ 84 84 Monitoring electrodes] Respiratory 18 18 19 Rate Blood Pressure Blood Pressure 142/80 H 138/75 H [Right Brachial artery] O2 Saturation 95 97 12/06/16 12/06/16 12/06/16 05:00 06:00 07:00 Temperature Heart Rate [ 82 84 Monitoring electrodes] Respiratory 18 13 10 L Rate Blood Pressure Blood Pressure 145/77 H 147/83 H [Right Brachial artery] O2 Saturation 97 97 12/06/16 12/06/16 12/06/16 09:00 09:26 10:00 Temperature 36.6 C Heart Rate [ 80 Monitoring electrodes] Respiratory 17 15 Rate Blood Pressure 155/98 H Blood Pressure 155/98 H [Right Brachial artery] O2 Saturation 97 12/06/16 12/06/16 12/06/16 10:57 13:00 17:12 Temperature 36.5 C Heart Rate [ 74 73 86 Monitoring electrodes] Respiratory 13 16 16 Rate Blood Pressure Blood Pressure 120/66 97/59 L 143/77 H [Right Brachial artery] O2 Saturation 96 95 97 Oxygen O2 Source Room air I&O (Last 24 Hrs): Intake and Output Totals x24h 12/04/16 12/05/16 12/06/16 23:59 23:59 23:59 Intake Total 2804 4260 2610 Output Total 2985 3300 2165 Balance -181 960 445 General: Alert, Oriented x3, Cooperative, Mild distress (Pain and nausea) HEENT: Atraumatic, PERRLA, EOMI, Mucous membr. moist/pink Neck: Supple, No JVD, No thyromegaly, +2 carotid pulse wo bruit, No LAD Neuro: Alert, Non Focal, CN 2-12 Grossly Intact, Oriented Times 3 Cardiovascular: Regular rate, Normal S1, Normal S2, No murmurs Respiratory: Chest non-tender, No respiratory distress, Breath sounds nml Abdomen: Normal bowel sounds, Soft, Other (Tenderness especially in epigastic area and RUQ) Extremities: No clubbing, No cyanosis, No edema, Normal pulses Skin: No rashes, No breakdown - Results Results: Laboratory Results WBC 9.9 x10^3/uL (4.8-10.8) 12/06/16 04:39 RBC 3.87 10^6/uL (4.70-6.10) L 12/06/16 04:39 Hgb 13.3 g/dL (14.0-18.0) L 12/06/16 04:39 Hct 39.0 % (42.0-52.0) L 12/06/16 04:39 MCV 100.9 fL (80.0-94.0) H 12/06/16 04:39 MCH 34.3 pg (27.0-31.0) H 12/06/16 04:39 MCHC 34.0 g/dL (32.0-36.0) 12/06/16 04:39 RDW 14.5 % (12.0-15.0) 12/06/16 04:39 Plt Count 111 10^3/uL (130-450) L 12/06/16 04:39 MPV 8.2 fL (7.4-11.4) 12/06/16 04:39 Neut # 6.8 10^3/uL (1.5-6.6) H 12/06/16 04:39 Lymph # 2.0 10^3/uL (1.5-3.5) 12/06/16 04:39 [place] # 1.0 10^3/uL (0.0-1.0) 12/06/16 04:39 Eos # 0.1 10^3/uL (0.0-0.7) 12/06/16 04:39 Baso # 0.1 10^3/uL (0.0-0.1) 12/06/16 04:39 Absolute Nucleated RBC 0.00 x10^3/uL 12/06/16 04:39 Nucleated RBCs 0.0 /100WBC 12/06/16 04:39 Manual Slide Review Indicated 12/03/16 10:02 WBC Morphology NORMAL APPEARANCE (NORMAL) 12/03/16 10:02 Platelet Estimate DECREASED (<130,000) (NORMAL) 12/03/16 10:02 Platelet Morphology NORMAL APPEARANCE (NORMAL) 12/03/16 10:02 RBC Morph Micro Appear NORMAL APPEARANCE (NORMAL) 12/03/16 10:02 Sodium 135 mmol/L (135-145) 12/06/16 04:39 Potassium 4.1 mmol/L (3.5-5.0) 12/06/16 04:39 Chloride 105 mmol/L (101-111) 12/06/16 04:39 Carbon Dioxide 21 mmol/L (21-32) 12/06/16 04:39 Anion Gap 9.0 (6-13) 12/06/16 04:39 BUN 14 mg/dL (6-20) 12/06/16 04:39 Creatinine 0.9 mg/dL (0.6-1.2) 12/06/16 04:39 Estimated GFR (MDRD) 86 (>89) L 12/06/16 04:39 Glucose 221 mg/dL (70-100) H 12/06/16 04:39 POC Whole Bld Glucose 321 mg/dL (70 - 100) H 12/06/16 17:07 Glycated Hemoglobin 8.1 % (4.6-6.2) H 12/03/16 10:02 Estim Average Glucose 186 (70-100) H 12/03/16 10:02 Calcium 9.0 mg/dL (8.5-10.3) 12/06/16 04:39 Magnesium 2.2 mg/dL (1.7-2.8) 12/04/16 05:29 Total Bilirubin 1.1 mg/dL (0.2-1.0) H 12/06/16 04:39 AST 44 IU/L (10-42) H 12/06/16 04:39 ALT 64 IU/L (10-60) H 12/06/16 04:39 Alkaline Phosphatase 33 IU/L (42-121) L 12/06/16 04:39 Total Protein 6.1 g/dL (6.7-8.2) L 12/06/16 04:39 Albumin 3.6 g/dL (3.2-5.5) 12/06/16 04:39 Globulin 2.5 g/dL (2.1-4.2) 12/06/16 04:39 Albumin/Globulin Ratio 1.4 (1.0-2.2) 12/06/16 04:39 Amylase 313 U/L (28-100) H 12/03/16 10:02 Lipase 38 U/L (22-51) 12/06/16 04:39
[2016-12-06] MEDS ORDERED: INSULIN ASPART 300 UNIT/3 ML PEN SUBQ ONE (20:53)
[2016-12-06] MEDS ORDERED: INSULIN GLARGINE 300 UNIT/3 ML PEN SUBQ SCH (21:00)
[2016-12-06] MEDS: INSULIN GLARGINE 300 UNIT/3 ML PEN SUBQ SCH (21:13)
[2016-12-06] MEDS: ALLOPURINOL 100 MG TABLET PO SCH (21:15)
[2016-12-06] MEDS: ATORVASTATIN 10 MG TABLET PO SCH (21:16)
--- NOTE | 2016-12-06 22:43 | PROVIDER PROGRESS NOTE ---
Subjective - General Admit Date: 12/03/16 Procedure Date: 12/04/16 Post Op Days: 2 Procedure Performed: Laparoscopic cholecystectomy with intraoperative chaolangiography converted - Review of Systems Wound/Incisions: positive: Dressing dry and intact Drain Type: 19 Fr Adán in subhepatic space and 12 Fr T tube in common bile duct Drain Output Description: Serosanguinous from Adán, bile from T tube General: positive: Other (Still with abdominal pain but markedly improved. Much more interactive.) HEENT: positive: No symptoms Pulmonary: positive: No symptoms Cardiovascular: positive: No symptoms Gastrointestinal: positive: Nausea (Even less than yesterday.), Abdominal pain Genitourinary: positive: No symptoms Musculoskeletal: positive: No symptoms Skin: positive: No symptoms Psychiatric: positive: No symptoms Objective - Patient Data Reviewed Vital Signs: Yes Vital Signs: Vital Signs x48h Temp Pulse Resp BP BP Pulse Ox 12/06/16 21:16 160/80 H 12/06/16 20:50 36.8 C 70 16 160/80 H 97 12/06/16 17:12 36.5 C 86 16 143/77 H 97 Intake & Output: Intake and Output Totals x24h 12/04/16 12/05/16 12/06/16 23:59 23:59 23:59 Intake Total 2804 4260 2850 Output Total 2985 3300 2715 Balance -181 960 135 - Lab Results Lab Results: 12/06/16 04:39 12/06/16 04:39 Other Lab Results: Lab Results x24hrs 12/06/16 12/06/16 12/06/16 Range/Units 20:42 17:07 12:01 WBC (4.8-10.8) x10^3/uL RBC (4.70-6.10) 10^6/uL Hgb (14.0-18.0) g/dL Hct (42.0-52.0) % MCV (80.0-94.0) fL MCH (27.0-31.0) pg MCHC (32.0-36.0) g/dL RDW (12.0-15.0) % Plt Count (130-450) 10^3/uL MPV (7.4-11.4) fL Neut # (1.5-6.6) 10^3/uL Lymph # (1.5-3.5) 10^3/uL [place] # (0.0-1.0) 10^3/uL Eos # (0.0-0.7) 10^3/uL Baso # (0.0-0.1) 10^3/uL Absolute Nucleated RBC x10^3/uL Nucleated RBCs /100WBC Sodium (135-145) mmol/L Potassium (3.5-5.0) mmol/L Chloride (101-111) mmol/L Carbon Dioxide (21-32) mmol/L Anion Gap (6-13) BUN (6-20) mg/dL Creatinine (0.6-1.2) mg/dL Estimated GFR (MDRD) (>89) Glucose (70-100) mg/dL POC Whole Bld Glucose 392 H 321 H 287 H (70 - 100) mg/dL Calcium (8.5-10.3) mg/dL Total Bilirubin (0.2-1.0) mg/dL AST (10-42) IU/L ALT (10-60) IU/L Alkaline Phosphatase (42-121) IU/L Total Protein (6.7-8.2) g/dL Albumin (3.2-5.5) g/dL Globulin (2.1-4.2) g/dL Albumin/Globulin Ratio (1.0-2.2) Lipase (22-51) U/L 12/06/16 12/06/16 12/06/16 Range/Units 07:40 04:39 04:39 WBC 9.9 (4.8-10.8) x10^3/uL RBC 3.87 L (4.70-6.10) 10^6/uL Hgb 13.3 L (14.0-18.0) g/dL Hct 39.0 L (42.0-52.0) % MCV 100.9 H (80.0-94.0) fL MCH 34.3 H (27.0-31.0) pg MCHC 34.0 (32.0-36.0) g/dL RDW 14.5 (12.0-15.0) % Plt Count 111 L (130-450) 10^3/uL MPV 8.2 (7.4-11.4) fL Neut # 6.8 H (1.5-6.6) 10^3/uL Lymph # 2.0 (1.5-3.5) 10^3/uL [place] # 1.0 (0.0-1.0) 10^3/uL Eos # 0.1 (0.0-0.7) 10^3/uL Baso # 0.1 (0.0-0.1) 10^3/uL Absolute Nucleated RBC 0.00 x10^3/uL Nucleated RBCs 0.0 /100WBC Sodium 135 (135-145) mmol/L Potassium 4.1 (3.5-5.0) mmol/L Chloride 105 (101-111) mmol/L Carbon Dioxide 21 (21-32) mmol/L Anion Gap 9.0 (6-13) BUN 14 (6-20) mg/dL Creatinine 0.9 (0.6-1.2) mg/dL Estimated GFR (MDRD) 86 L (>89) Glucose 221 H (70-100) mg/dL POC Whole Bld Glucose 249 H (70 - 100) mg/dL Calcium 9.0 (8.5-10.3) mg/dL Total Bilirubin 1.1 H (0.2-1.0) mg/dL AST 44 H (10-42) IU/L ALT 64 H (10-60) IU/L Alkaline Phosphatase 33 L (42-121) IU/L Total Protein 6.1 L (6.7-8.2) g/dL Albumin 3.6 (3.2-5.5) g/dL Globulin 2.5 (2.1-4.2) g/dL Albumin/Globulin Ratio 1.4 (1.0-2.2) Lipase 38 (22-51) U/L - Current Medications Current Medications: Current Medications Generic Name Dose Route Start Last Admin Trade Name Freq PRN Reason Stop Dose Admin Acetaminophen/Hydrocodone Bitart 2 tab 12/03/16 17:44 12/06/16 21:16 [place] 5/325 PO 2 tab Q4HR PRN Administration PAIN Allopurinol 300 mg 12/04/16 21:00 12/06/16 21:15 Zyloprim PO 300 mg QPM CARMELO Administration Atorvastatin Calcium 20 mg 12/03/16 21:00 12/06/16 21:16 Lipitor PO 20 mg QPM CARMELO Administration Cholecalciferol 1,000 unit 12/04/16 09:00 12/06/16 09:26 Vitamin D3 PO 1,000 unit DAILY CARMELO Administration Diphenhydramine HCl 25 mg 12/06/16 11:05 12/06/16 11:19 Benadryl PO 25 mg Q4HR PRN Administration Allergy Symptoms Enoxaparin Sodium 40 mg 12/04/16 09:00 12/06/16 09:27 Lovenox SUBQ 40 mg DAILY CARMELO Administration Famotidine 20 mg 12/04/16 09:00 12/06/16 09:26 Pepcid PO 20 mg DAILY CARMELO Administration Acetaminophen 100 mls @ 400 mls/hr 12/04/16 21:18 12/05/16 04:47 Ofirmev IV 400 mls/hr Q6HR PRN Administration PAIN Insulin Aspart 3 - 11 unit 12/05/16 21:00 12/06/16 21:14 Novolog SUBQ Not Given 0800,1200,1700,2100 [facility] Protocol Insulin Glargine 20 unit 12/06/16 21:00 12/06/16 21:13 Lantus Solostar SUBQ 20 unit QPM CARMELO Administration Lisinopril 20 mg 12/04/16 21:19 12/06/16 21:16 Zestril PO 20 mg BID CARMELO Administration Metoprolol Tartrate 50 mg 12/03/16 21:00 12/06/16 21:16 Lopressor PO 50 mg BID CARMELO Administration Multivitamins 1 tab 12/04/16 08:00 12/06/16 08:00 Theragran PO 1 tab DAILYWM CARMELO Administration Polyethylene Glycol 17 gm 12/04/16 09:00 12/06/16 09:27 Miralax PO 17 gm DAILY CARMELO Administration Prednisone 10 mg 12/04/16 08:00 12/06/16 08:00 Deltasone PO 10 mg DAILYWM CARMELO Administration Sodium Chloride 10 ml 12/04/16 14:00 12/06/16 21:17 Normal Saline Flush 0.9% IVP 10 ml Q8HR CARMELO Administration - Physical Exam Wound/Incisions: positive: Dressing dry and intact General Appearance: positive: Mild distress Eyes Bilateral: positive: No lid inflammation, Conjunctivae nml, No scleral icterus Neck: positive: Trachea midline Respiratory: positive: Chest non-tender, No respiratory distress, Breath sounds nml Cardiovascular: positive: Regular rate & rhythm Abdomen: positive: Tenderness (Incisional.), Abnml bowel sounds (Slightly decreased.) Extremities: positive: Nml appearance Neurologic/Psychiatric: positive: Oriented x3 Impression/Plan - Problem List Problem List: D2 s/p laparoscopic cholecystectomy with IOC converted to pen cholecystecctomy with IOC, T tube placement and drainage 1) FEN Tolerated liquids and advanced to general diet. Will see how they are tolerated. Decrease IVF to compensate. 2) Pain Better control. Still cannot rely on oral agents. 3) DVT Prophylaxis in place. 4) Pathology Pending. 5) Activity Improving daily. Ambulating a bit and need to see much more prior to discharge. 6) T tube Need to start training as patient will be going home with this. Expect that the Adán drain will be removed prior to D/C. 7) ID Antibiotic should stop.
[2016-12-07] MEDS: HYDROcod/ACETAM 5/325 MG TABLET PO PRN ×3 (00:21→18:30)
[2016-12-07 05:49] LABS: BASOPHILS # (AUTO) 0.1 10^3/uL (0.0-0.1); BASOPHILS % (AUTO) 0.6 %; EOSINOPHILS # (AUTO) 0.2 10^3/uL (0.0-0.7); EOSINOPHILS % (AUTO) 1.8 %; HGB - HEMOGLOBIN 13.7 g/dL (14.0-18.0); LYMPHOCYTES % (AUTO) 23.8 %; MEAN CORPUSCULAR HEMOGLOBIN 33.9 pg (27.0-31.0); MEAN CORPUSCULAR HGB CONC 34.2 g/dL (32.0-36.0); MEAN CORPUSCULAR VOLUME 99.2 fL (80.0-94.0); MEAN PLATELET VOLUME 7.8 fL (7.4-11.4); MONOCYTES # (AUTO) 0.8 10^3/uL (0.0-1.0); MONOCYTES % (AUTO) 9.2 %; NEUTROPHILS # (AUTO) 5.5 10^3/uL (1.5-6.6); NEUTROPHILS % (AUTO) 64.6 %; NUCLEATED RED BLOOD CELLS AUTO 0.1 /100WBC; RED BLOOD COUNT 4.04 10^6/uL (4.70-6.10); RED CELL DISTRIBUTION WIDTH 13.9 % (12.0-15.0); UNCORRECTED WHITE BLOOD COUNT 8.5 x10^3/uL; WHITE BLOOD COUNT 8.5 x10^3/uL (4.8-10.8)
[2016-12-07 06:02] LABS: ALBUMIN/GLOBULIN RATIO 1.4 (1.0-2.2)
[2016-12-07 06:04] LABS: BILIRUBIN,TOTAL 1.1 mg/dL (0.2-1.0); CALCIUM 9.7 mg/dL (8.5-10.3); CREATININE 0.8 mg/dL (0.6-1.2); POTASSIUM 3.4 mmol/L (3.5-5.0); TOTAL PROTEIN 6.7 g/dL (6.7-8.2)
[2016-12-07] MEDS: SODIUM CHLORIDE FLUSH 0.9% 10 ML SYRINGE IVP SCH ×3 (06:13→20:15)
[2016-12-07] MEDS: LISINOPRIL 20 MG TABLET PO SCH ×2 (08:15→20:09)
[2016-12-07] MEDS: METOPROLOL TARTRATE 50 MG TABLET PO SCH ×2 (08:15→20:13)
[2016-12-07] MEDS: POLYETHYLENE GLYCOL 3350 17 GM PACKET PO SCH (08:15)
[2016-12-07] MEDS: CHOLECALCIFEROL 1,000 UNIT TABLET PO SCH (08:15)
[2016-12-07] MEDS: HYDROmorphone 1 MG/ML SYRINGE IVP PRN ×3 (08:15→19:49)
[2016-12-07] MEDS: MULTIVITAMIN TABLET PO SCH (08:17)
[2016-12-07] MEDS: ENOXAPARIN 40 MG/0.4 ML SYRINGE SUBQ SCH (08:17)
[2016-12-07] MEDS: predniSONE 10 MG TABLET PO SCH (08:17)
[2016-12-07] MEDS: FAMOTIDINE 20 MG TABLET PO SCH (08:17)
[2016-12-07] MEDS: INSULIN ASPART 300 UNIT/3 ML PEN SUBQ SCH ×4 (08:21→20:17)
--- NOTE | 2016-12-07 17:43 | PROVIDER PROGRESS NOTE ---
Assessment/Plan - Problem List (1) Acute cholecystitis Assessment/Plan: Pt improving post-op day #3. Pt is eating solids. Expect DCh when OK with surgeon. (2) Acute pancreatitis Qualifiers: Pancreatitis type: unspecified pancreatitis type Acute pancreatitis complication: unspecified Qualified Code(s): K85.90 - Acute pancreatitis without necrosis or infection, unspecified Assessment/Plan: Pt denies pain and is eating solids (3) Diabetes Assessment/Plan: Will restart his NPH Insulin dose, as he is tolerating solid diabetic diet. (4) HTN (hypertension) Assessment/Plan: Stable on meds (5) Gout Assessment/Plan: Stable on meds (6) Hyperlipidemia Assessment/Plan: Stable on meds (7) Myelodysplastic disease Assessment/Plan: Stable - Current Meds Current Meds: Current Medications Generic Name Dose Route Start Last Admin Trade Name Freq PRN Reason Stop Dose Admin Acetaminophen/Hydrocodone Bitart 2 tab 12/03/16 17:44 12/07/16 04:34 [place] 5/325 PO 2 tab Q4HR PRN Administration PAIN Allopurinol 300 mg 12/04/16 21:00 12/06/16 21:15 Zyloprim PO 300 mg QPM CARMELO Administration Atorvastatin Calcium 20 mg 12/03/16 21:00 12/06/16 21:16 Lipitor PO 20 mg QPM CARMELO Administration Cholecalciferol 1,000 unit 12/04/16 09:00 12/07/16 08:15 Vitamin D3 PO 1,000 unit DAILY CARMELO Administration Diphenhydramine HCl 25 mg 12/06/16 11:05 12/06/16 11:19 Benadryl PO 25 mg Q4HR PRN Administration Allergy Symptoms Enoxaparin Sodium 40 mg 12/04/16 09:00 12/07/16 08:17 Lovenox SUBQ Not Given DAILY CARMELO Famotidine 20 mg 12/04/16 09:00 12/07/16 08:17 Pepcid PO 20 mg DAILY CARMELO Administration Hydromorphone HCl 1 mg 12/06/16 11:07 12/07/16 14:51 Dilaudid Inj IVP 1 mg Q6H PRN Administration PAIN Acetaminophen 100 mls @ 400 mls/hr 12/04/16 21:18 12/05/16 04:47 Ofirmev IV 400 mls/hr Q6HR PRN Administration PAIN Insulin Aspart 3 - 11 unit 12/05/16 21:00 12/07/16 11:56 Novolog SUBQ 9 unit 0800,1200,1700,2100 CARMELO Administration Protocol Insulin Glargine 20 unit 12/06/16 21:00 12/06/16 21:13 Lantus Solostar SUBQ 20 unit QPM CARMELO Administration Lisinopril 20 mg 12/04/16 21:19 12/07/16 08:15 Zestril PO 20 mg BID CARMELO Administration Metoprolol Tartrate 50 mg 12/03/16 21:00 12/07/16 08:15 Lopressor PO 50 mg BID CARMELO Administration Multivitamins 1 tab 12/04/16 08:00 12/07/16 08:17 Theragran PO 1 tab DAILYWM CARMELO Administration Polyethylene Glycol 17 gm 12/04/16 09:00 12/07/16 08:15 Miralax PO 17 gm DAILY CARMELO Administration Prednisone 10 mg 12/04/16 08:00 12/07/16 08:17 Deltasone PO 10 mg DAILYWM CARMELO Administration Sodium Chloride 10 ml 12/04/16 14:00 12/07/16 14:51 Normal Saline Flush 0.9% IVP 10 ml Q8HR CARMELO Administration - Lab Result Fish Bone Diagrams: 12/07/16 05:27 12/07/16 05:27 - Additional Planning My Orders: My Active Orders 12/07/16 21:00 Insulin NPH Human [NovoLIN N] 40 unit SUBQ BID Subjective - Subjective Patient Reports: Feeling Better, No Complaints Objective Vital Signs: Vital Signs - 24 hr 12/06/16 12/06/16 12/07/16 20:50 21:16 01:00 Temperature 36.8 C 36.8 C Heart Rate [ Brachial] Heart Rate [ 70 98 Monitoring electrodes] Respiratory 16 18 Rate Blood Pressure 160/80 H Blood Pressure 160/80 H 170/89 H [Right Brachial artery] O2 Saturation 97 98 12/07/16 12/07/16 12/07/16 04:30 08:15 08:19 Temperature 36.6 C 36.9 C Heart Rate [ 78 Brachial] Heart Rate [ 85 Monitoring electrodes] Respiratory 20 18 Rate Blood Pressure 148/83 H Blood Pressure 141/85 H 148/83 H [Right Brachial artery] O2 Saturation 95 97 12/07/16 12/07/16 11:32 16:07 Temperature 36.5 C 36.6 C Heart Rate [ 70 82 Brachial] Heart Rate [ Monitoring electrodes] Respiratory 19 16 Rate Blood Pressure Blood Pressure 115/75 131/70 H [Right Brachial artery] O2 Saturation 97 97 Oxygen O2 Source Room air I&O (Last 24 Hrs): Intake and Output Totals x24h 12/05/16 12/06/16 12/07/16 23:59 23:59 23:59 Intake Total 4260 2850 965 Output Total 3300 2715 1085 Balance 960 135 -120 General: Alert, Oriented x3 HEENT: Mucous membr. moist/pink, Other (Poor dentition and appears poorly kempt) Neck: Supple Neuro: Alert Cardiovascular: Regular rate Respiratory: No respiratory distress Abdomen: Soft, No tenderness Extremities: No edema - Results Results: Laboratory Results WBC 8.5 x10^3/uL (4.8-10.8) 12/07/16 05:27 RBC 4.04 10^6/uL (4.70-6.10) L 12/07/16 05:27 Hgb 13.7 g/dL (14.0-18.0) L 12/07/16 05:27 Hct 40.0 % (42.0-52.0) L 12/07/16 05:27 MCV 99.2 fL (80.0-94.0) H 12/07/16 05:27 MCH 33.9 pg (27.0-31.0) H 12/07/16 05:27 MCHC 34.2 g/dL (32.0-36.0) 12/07/16 05:27 RDW 13.9 % (12.0-15.0) 12/07/16 05:27 Plt Count 129 10^3/uL (130-450) L 12/07/16 05:27 MPV 7.8 fL (7.4-11.4) 12/07/16 05:27 Neut # 5.5 10^3/uL (1.5-6.6) 12/07/16 05:27 Lymph # 2.0 10^3/uL (1.5-3.5) 12/07/16 05:27 [place] # 0.8 10^3/uL (0.0-1.0) 12/07/16 05:27 Eos # 0.2 10^3/uL (0.0-0.7) 12/07/16 05:27 Baso # 0.1 10^3/uL (0.0-0.1) 12/07/16 05:27 Absolute Nucleated RBC 0.01 x10^3/uL 12/07/16 05:27 Nucleated RBCs 0.1 /100WBC 12/07/16 05:27 Manual Slide Review Indicated 12/03/16 10:02 WBC Morphology NORMAL APPEARANCE (NORMAL) 12/03/16 10:02 Platelet Estimate DECREASED (<130,000) (NORMAL) 12/03/16 10:02 Platelet Morphology NORMAL APPEARANCE (NORMAL) 12/03/16 10:02 RBC Morph Micro Appear NORMAL APPEARANCE (NORMAL) 12/03/16 10:02 Sodium 135 mmol/L (135-145) 12/07/16 05:27 Potassium 3.4 mmol/L (3.5-5.0) L 12/07/16 05:27 Chloride 103 mmol/L (101-111) 12/07/16 05:27 Carbon Dioxide 22 mmol/L (21-32) 12/07/16 05:27 Anion Gap 11.0 (6-13) 12/07/16 05:27 BUN 15 mg/dL (6-20) 12/07/16 05:27 Creatinine 0.8 mg/dL (0.6-1.2) 12/07/16 05:27 Estimated GFR (MDRD) 98 (>89) 12/07/16 05:27 Glucose 239 mg/dL (70-100) H 12/07/16 05:27 POC Whole Bld Glucose 296 mg/dL (70 - 100) H 12/07/16 16:44 Glycated Hemoglobin 8.1 % (4.6-6.2) H 12/03/16 10:02 Estim Average Glucose 186 (70-100) H 12/03/16 10:02 Calcium 9.7 mg/dL (8.5-10.3) 12/07/16 05:27 Magnesium 2.2 mg/dL (1.7-2.8) 12/04/16 05:29 Total Bilirubin 1.1 mg/dL (0.2-1.0) H 12/07/16 05:27 AST 28 IU/L (10-42) 12/07/16 05:27 ALT 51 IU/L (10-60) 12/07/16 05:27 Alkaline Phosphatase 38 IU/L (42-121) L 12/07/16 05:27 Total Protein 6.7 g/dL (6.7-8.2) 12/07/16 05:27 Albumin 3.8 g/dL (3.2-5.5) 12/07/16 05:27 Globulin 2.8 g/dL (2.1-4.2) 12/07/16 05:27 Albumin/Globulin Ratio 1.4 (1.0-2.2) 12/07/16 05:27 Amylase 313 U/L (28-100) H 12/03/16 10:02 Lipase 32 U/L (22-51) 12/07/16 05:27
[2016-12-07] MEDS: ALLOPURINOL 100 MG TABLET PO SCH (20:08)
[2016-12-07] MEDS: ATORVASTATIN 10 MG TABLET PO SCH (20:09)
[2016-12-07] MEDS: INSULIN GLARGINE 300 UNIT/3 ML PEN SUBQ SCH (20:10)
[2016-12-07] MEDS: INSULIN NPH HUMAN 100 UNIT/1 ML 10 ML MDV SUBQ SCH (20:32)
--- NOTE | 2016-12-07 22:44 | PROVIDER PROGRESS NOTE ---
Subjective - General Admit Date: 12/03/16 Procedure Date: 12/04/16 Post Op Days: 3 Procedure Performed: Laparoscopic cholecystectomy with intraoperative chaolangiography converted - Review of Systems Wound/Incisions: positive: Dressing dry and intact Drain Type: 19 Fr Adán in subhepatic space and 12 Fr T tube in common bile duct Drain Output Description: Serosanguinous from Adán, bile from T tube General: positive: Other ( Sleeping comfortably when I cam rogelio to see him at 1600.) HEENT: positive: No symptoms Pulmonary: positive: No symptoms Cardiovascular: positive: No symptoms Gastrointestinal: positive: Abdominal pain (Decreased.) Genitourinary: positive: No symptoms Musculoskeletal: positive: No symptoms Skin: positive: No symptoms Psychiatric: positive: No symptoms Objective - Patient Data Reviewed Vital Signs: Yes Vital Signs: Vital Signs x48h Temp Pulse Resp BP BP Pulse Ox 12/07/16 20:13 144/81 H 12/07/16 19:20 36.9 C 86 18 144/81 H 96 12/07/16 16:07 36.6 C 82 16 131/70 H 97 Intake & Output: Intake and Output Totals x24h 12/05/16 12/06/16 12/07/16 23:59 23:59 23:59 Intake Total 4260 2850 965 Output Total 3300 2715 1240 Balance 960 135 -275 - Lab Results Lab Results: 12/07/16 05:27 12/07/16 05:27 Other Lab Results: Lab Results x24hrs 12/07/16 12/07/16 12/07/16 Range/Units 20:10 16:44 11:24 WBC (4.8-10.8) x10^3/uL RBC (4.70-6.10) 10^6/uL Hgb (14.0-18.0) g/dL Hct (42.0-52.0) % MCV (80.0-94.0) fL MCH (27.0-31.0) pg MCHC (32.0-36.0) g/dL RDW (12.0-15.0) % Plt Count (130-450) 10^3/uL MPV (7.4-11.4) fL Neut # (1.5-6.6) 10^3/uL Lymph # (1.5-3.5) 10^3/uL [place]ron # (0.0-1.0) 10^3/uL Eos # (0.0-0.7) 10^3/uL Baso # (0.0-0.1) 10^3/uL Absolute Nucleated RBC x10^3/uL Nucleated RBCs /100WBC Sodium (135-145) mmol/L Potassium (3.5-5.0) mmol/L Chloride (101-111) mmol/L Carbon Dioxide (21-32) mmol/L Anion Gap (6-13) BUN (6-20) mg/dL Creatinine (0.6-1.2) mg/dL Estimated GFR (MDRD) (>89) Glucose (70-100) mg/dL POC Whole Bld Glucose 314 H 296 H 294 H (70 - 100) mg/dL Calcium (8.5-10.3) mg/dL Total Bilirubin (0.2-1.0) mg/dL AST (10-42) IU/L ALT (10-60) IU/L Alkaline Phosphatase (42-121) IU/L Total Protein (6.7-8.2) g/dL Albumin (3.2-5.5) g/dL Globulin (2.1-4.2) g/dL Albumin/Globulin Ratio (1.0-2.2) Lipase (22-51) U/L 12/07/16 12/07/16 12/07/16 Range/Units 07:50 05:27 05:27 WBC 8.5 (4.8-10.8) x10^3/uL RBC 4.04 L (4.70-6.10) 10^6/uL Hgb 13.7 L (14.0-18.0) g/dL Hct 40.0 L (42.0-52.0) % MCV 99.2 H (80.0-94.0) fL MCH 33.9 H (27.0-31.0) pg MCHC 34.2 (32.0-36.0) g/dL RDW 13.9 (12.0-15.0) % Plt Count 129 L (130-450) 10^3/uL MPV 7.8 (7.4-11.4) fL Neut # 5.5 (1.5-6.6) 10^3/uL Lymph # 2.0 (1.5-3.5) 10^3/uL Barron # 0.8 (0.0-1.0) 10^3/uL Eos # 0.2 (0.0-0.7) 10^3/uL Baso # 0.1 (0.0-0.1) 10^3/uL Absolute Nucleated RBC 0.01 x10^3/uL Nucleated RBCs 0.1 /100WBC Sodium 135 (135-145) mmol/L Potassium 3.4 L (3.5-5.0) mmol/L Chloride 103 (101-111) mmol/L Carbon Dioxide 22 (21-32) mmol/L Anion Gap 11.0 (6-13) BUN 15 (6-20) mg/dL Creatinine 0.8 (0.6-1.2) mg/dL Estimated GFR (MDRD) 98 (>89) Glucose 239 H (70-100) mg/dL POC Whole Bld Glucose 229 H (70 - 100) mg/dL Calcium 9.7 (8.5-10.3) mg/dL Total Bilirubin 1.1 H (0.2-1.0) mg/dL AST 28 (10-42) IU/L ALT 51 (10-60) IU/L Alkaline Phosphatase 38 L (42-121) IU/L Total Protein 6.7 (6.7-8.2) g/dL Albumin 3.8 (3.2-5.5) g/dL Globulin 2.8 (2.1-4.2) g/dL Albumin/Globulin Ratio 1.4 (1.0-2.2) Lipase 32 (22-51) U/L - Current Medications Current Medications: Current Medications Generic Name Dose Route Start Last Admin Trade Name Freq PRN Reason Stop Dose Admin Acetaminophen/Hydrocodone Bitart 2 tab 12/03/16 17:44 12/07/16 18:30 [place] 5/325 PO 2 tab Q4HR PRN Administration PAIN Allopurinol 300 mg 12/04/16 21:00 12/07/16 20:08 Zyloprim PO 300 mg QPM CARMELO Administration Atorvastatin Calcium 20 mg 12/03/16 21:00 12/07/16 20:09 Lipitor PO 20 mg QPM CARMELO Administration Cholecalciferol 1,000 unit 12/04/16 09:00 12/07/16 08:15 Vitamin D3 PO 1,000 unit DAILY CARMELO Administration Diphenhydramine HCl 25 mg 12/06/16 11:05 12/06/16 11:19 Benadryl PO 25 mg Q4HR PRN Administration Allergy Symptoms Enoxaparin Sodium 40 mg 12/04/16 09:00 12/07/16 08:17 Lovenox SUBQ Not Given DAILY CARMELO Famotidine 20 mg 12/04/16 09:00 12/07/16 08:17 Pepcid PO 20 mg DAILY CARMELO Administration Hydromorphone HCl 1 mg 12/06/16 11:07 12/07/16 19:49 Dilaudid Inj IVP 1 mg Q6H PRN Administration PAIN Acetaminophen 100 mls @ 400 mls/hr 12/04/16 21:18 12/05/16 04:47 Ofirmev IV 400 mls/hr Q6HR PRN Administration PAIN Insulin Aspart 3 - 11 unit 12/05/16 21:00 12/07/16 20:17 Novolog SUBQ 9 unit 0800,1200,1700,2100 CARMELO Administration Protocol Insulin Glargine 20 unit 12/06/16 21:00 12/07/16 20:10 Lantus Solostar SUBQ 20 unit QPM CARMELO Administration Insulin Human NPH 40 unit 12/07/16 21:00 12/07/16 20:32 Novolin N SUBQ 40 unit BID CARMELO Administration Lisinopril 20 mg 12/04/16 21:19 12/07/16 20:09 Zestril PO 20 mg BID CARMELO Administration Metoprolol Tartrate 50 mg 12/03/16 21:00 12/07/16 20:13 Lopressor PO 50 mg BID CARMELO Administration Multivitamins 1 tab 12/04/16 08:00 12/07/16 08:17 Theragran PO 1 tab DAILYWM CARMELO Administration Polyethylene Glycol 17 gm 12/04/16 09:00 12/07/16 08:15 Miralax PO 17 gm DAILY CARMELO Administration Prednisone 10 mg 12/04/16 08:00 12/07/16 08:17 Deltasone PO 10 mg DAILYWM CARMELO Administration Sodium Chloride 10 ml 12/04/16 13:56 12/07/16 19:49 Normal Saline Flush 0.9% IVP 10 ml PRN PRN Administration NEEDED PER PROVIDER ORDERS Sodium Chloride 10 ml 12/04/16 14:00 12/07/16 20:15 Normal Saline Flush 0.9% IVP Not Given Q8HR CARMELO - Physical Exam Wound/Incisions: positive: Dressing dry and intact General Appearance: positive: No acute distress Eyes Bilateral: positive: No lid inflammation, Conjunctivae nml, No scleral icterus Neck: positive: Trachea midline Respiratory: positive: Chest non-tender, No respiratory distress, Breath sounds nml Cardiovascular: positive: Regular rate & rhythm Abdomen: positive: Abnml bowel sounds (Diminished but present.) Extremities: positive: Nml appearance Neurologic/Psychiatric: positive: Oriented x3 Impression/Plan - Problem List Problem List: D3 s/p open cholecystecomy converted from laparoscopic with IOC, T tube and drain placement 1) FEN Doing well. Can heplock IVF. Tolerating diet well. 2) Pain Trial of oral agents in preparation for discharge. 3) ID No issue 4) Chronic pancreatitis Of note this is almost certainly due to pancreatic divisum (patient's story is almost classic - not alcoholic, not biliary, born prematurely) Nothing to do other than support. 5) DVT prophylaxis In place. 6) T tube The only thing that I do not know yet is has patient been instructed regarding the T tube. Will determine tomorrow.
[2016-12-08] MEDS: HYDROcod/ACETAM 5/325 MG TABLET PO PRN ×4 (00:22→16:58)
[2016-12-08] MEDS: SODIUM CHLORIDE FLUSH 0.9% 10 ML SYRINGE IVP SCH ×2 (06:06→15:35)
[2016-12-08] MEDS: MULTIVITAMIN TABLET PO SCH (09:21)
[2016-12-08] MEDS: CHOLECALCIFEROL 1,000 UNIT TABLET PO SCH (09:22)
[2016-12-08] MEDS: predniSONE 10 MG TABLET PO SCH (09:22)
[2016-12-08] MEDS: FAMOTIDINE 20 MG TABLET PO SCH (09:23)
[2016-12-08] MEDS: LISINOPRIL 20 MG TABLET PO SCH (09:24)
[2016-12-08] MEDS: METOPROLOL TARTRATE 50 MG TABLET PO SCH (09:24)
[2016-12-08] MEDS: POLYETHYLENE GLYCOL 3350 17 GM PACKET PO SCH (09:32)
[2016-12-08] MEDS: INSULIN NPH HUMAN 100 UNIT/1 ML 10 ML MDV SUBQ SCH (09:49)
[2016-12-08] MEDS: INSULIN ASPART 300 UNIT/3 ML PEN SUBQ SCH ×3 (09:50→16:44)
[2016-12-08] MEDS: ENOXAPARIN 40 MG/0.4 ML SYRINGE SUBQ SCH (09:54)
--- NOTE | 2016-12-08 18:14 | PROVIDER PROGRESS NOTE ---
Subjective - General Admit Date: 12/03/16 Procedure Date: 12/04/16 Post Op Days: 4 Procedure Performed: Laparoscopic cholecystectomy with intraoperative chaolangiography converted - Review of Systems Wound/Incisions: positive: Healing well (Every other staple removed.) Drain Type: 12 Fr T tube in common bile duct Drain Output Description: Bile from T tube General: positive: No symptoms HEENT: positive: No symptoms Pulmonary: positive: No symptoms Cardiovascular: positive: No symptoms Gastrointestinal: positive: Abdominal pain (Tolerable with oral pain medications.) Genitourinary: positive: No symptoms Musculoskeletal: positive: No symptoms Skin: positive: No symptoms Psychiatric: positive: No symptoms Objective - Patient Data Vital Signs: Vital Signs x48h Temp Pulse Resp BP Pulse Ox 12/08/16 15:29 36.4 C L 77 16 100/62 98 12/08/16 11:18 36.6 C 103 H 18 98/57 L 97 Intake & Output: Intake and Output Totals x24h 12/06/16 12/07/16 12/08/16 23:59 23:59 23:59 Intake Total 2850 965 1050 Output Total 2715 1240 395 Balance 135 -275 655 - Lab Results Lab Results: 12/07/16 05:27 12/07/16 05:27 Other Lab Results: Lab Results x24hrs 12/08/16 12/08/16 12/08/16 Range/Units 16:22 11:13 07:33 POC Whole Bld Glucose 148 H 184 H 195 H (70 - 100) mg/dL 12/07/16 12/07/16 12/04/16 Range/Units 23:50 20:10 05:30 POC Whole Bld Glucose 234 H 314 H 235 H (70 - 100) mg/dL - Current Medications Current Medications: Current Medications Generic Name Dose Route Start Last Admin Trade Name Freq PRN Reason Stop Dose Admin Acetaminophen/Hydrocodone Bitart 2 tab 12/03/16 17:44 12/08/16 16:58 [place] 5/325 PO 2 tab Q4HR PRN Administration PAIN Allopurinol 300 mg 12/04/16 21:00 12/07/16 20:08 Zyloprim PO 300 mg QPM CARMELO Administration Atorvastatin Calcium 20 mg 12/03/16 21:00 12/07/16 20:09 Lipitor PO 20 mg QPM CARMELO Administration Cholecalciferol 1,000 unit 12/04/16 09:00 12/08/16 09:22 Vitamin D3 PO 1,000 unit DAILY CARMELO Administration Diphenhydramine HCl 25 mg 12/06/16 11:05 12/06/16 11:19 Benadryl PO 25 mg Q4HR PRN Administration Allergy Symptoms Enoxaparin Sodium 40 mg 12/04/16 09:00 12/08/16 09:54 Lovenox SUBQ 40 mg DAILY CARMELO Administration Famotidine 20 mg 12/04/16 09:00 12/08/16 09:23 Pepcid PO 20 mg DAILY CARMELO Administration Hydromorphone HCl 1 mg 12/06/16 11:07 12/07/16 19:49 Dilaudid Inj IVP 1 mg Q6H PRN Administration PAIN Acetaminophen 100 mls @ 400 mls/hr 12/04/16 21:18 12/05/16 04:47 Ofirmev IV 400 mls/hr Q6HR PRN Administration PAIN Insulin Aspart 3 - 11 unit 12/05/16 21:00 12/08/16 16:44 Novolog SUBQ 3 unit 0800,1200,1700,2100 CARMELO Administration Protocol Insulin Glargine 20 unit 12/06/16 21:00 12/07/16 20:10 Lantus Solostar SUBQ 20 unit QPM CARMELO Administration Insulin Human NPH 40 unit 12/07/16 21:00 12/08/16 09:49 Novolin N SUBQ 40 unit BID CARMELO Administration Lisinopril 20 mg 12/04/16 21:19 12/08/16 09:24 Zestril PO 20 mg BID CARMELO Administration Metoprolol Tartrate 50 mg 12/03/16 21:00 12/08/16 09:24 Lopressor PO 50 mg BID CARMELO Administration Multivitamins 1 tab 12/04/16 08:00 12/08/16 09:21 Theragran PO 1 tab DAILYWM CARMELO Administration Polyethylene Glycol 17 gm 12/04/16 09:00 12/08/16 09:32 Miralax PO 17 gm DAILY CARMELO Administration Prednisone 10 mg 12/04/16 08:00 12/08/16 09:22 Deltasone PO 10 mg DAILYWM CARMELO Administration Sodium Chloride 10 ml 12/04/16 13:56 12/07/16 19:49 Normal Saline Flush 0.9% IVP 10 ml PRN PRN Administration NEEDED PER PROVIDER ORDERS Sodium Chloride 10 ml 12/04/16 14:00 12/08/16 15:35 Normal Saline Flush 0.9% IVP 10 ml Q8HR CARMELO Administration - Physical Exam Wound/Incisions: positive: Healing well (Every other staple removed.) General Appearance: positive: No acute distress Eyes Bilateral: positive: No lid inflammation, Conjunctivae nml, No scleral icterus Neck: positive: Trachea midline Respiratory: positive: Chest non-tender, No respiratory distress, Breath sounds nml Cardiovascular: positive: Regular rate & rhythm Abdomen: positive: Tenderness (Very mild incisional.) Skin: positive: Color nml Extremities: positive: Nml appearance Neurologic/Psychiatric: positive: Oriented x3 Impression/Plan - Problem List Problem List: D4 s/p open flakita with IOC (converted from laparoscopic with IOC) T tube placement, drainage 1) FEN Tolerating general diet. 2) Pain Well controlled with oral agents. 3) Chronic pancreatitis Due to pancreatitis divisum NOT alcoholic NOT biliary. 4) Activity Improved.
--- NOTE | 2016-12-08 18:28 | Discharge Plan ---
Discharge Plan Disposition: Home, Self Care Condition: Good Prescriptions: HYDROcod/ACETAM 5/325 [[place] 5/325] 2 tab PO Q4HR PRN #40 tablet PRN Reason: Pain Diet: Regular Activity Restrictions: No Restrictions (No lifting greater than 15 pounds for 6 weeks.) Shower Restrictions: No Driving Restrictions: Yes Weight Bearing: Full Weight Additional Instructions or Follow Up instructions: Call with any surgical questions or concerns. Take care of T tube. Plan X-ray in 6 weeks to evaluate T tube. D/C #[id number] No Smoking: If you smoke, Please STOP! Call for help. Follow-up with: Bay Lombardo MD [Primary Care Provider] - Carter Alaniz MD [Provider Admit Priv/Credential] -
[2016-12-08 18:35] VITALS: BP 106/65
--- NOTE | 2016-12-09 05:07 | DISCHARGE SUMMARY ---
DATE OF ADMISSION: 12/03/2016 DATE OF DISCHARGE: 12/08/2016 HOSPITAL COURSE: The patient was admitted to the hospital with a diagnosis of acute cholecystitis. He has had numerous bouts of pancreatitis. The pancreatitis was due now in retrospect to pancreatic div isum and not alcoholic pancreatitis and not biliary pancreatitis. 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 He was admitted to the medical service and I (Dr. Alaniz) was consulted for surgery to remove his gallbladder. He was taken to the operating theater on 12/04/2016 where the procedure started laparoscopically cholecystectomy with intraoperative cholan giography, but was converted to an open cholecystectomy with intraoperative cholangiography, placemen t of a T tube, as well as drains following an injury to the common bile duct. Postoperatively, he did well. The medical service was instrumental in taking care of his various medical issues including hi s diabetes mellitus. Even though alcoholism was mentioned in the history and physical several times, he has not had alcoholism. He has really not had any alcoholic drink to drink since 1998. Postoperati vely, he was finally able to tolerate liquids and then finally a general diet. His laboratory values remained normal and today's CMP revealed that his AST and ALT were normal. Total bilirubin was 1.1. I should mention this was 12/07, not 12/08, with no biliary drainage in his Adán drain. This was paul jazz keely. The T tube is to stay in place. He is to be sent home with the T tube in place, taught h ow to take care of it. He is not to lift anything heavier than 15 pounds for a total of 6 weeks. He i s to return to my office in 7-10 days to have the remaining chuy removed. Every other staple was r emoved tonight. He is not to do any heavy lifting greater than 15 pounds for a total of 6 weeks due t o decreased likelihood of a hernia at the incision. Additionally, he is not to do any driving as his reflexes are not adequate. It is okay for him to shower, walk, climb stairs, have sex, eat a general diet. Prescriptions have been written for pain medications. He is also follow up with Dr. Clark Lombardo in his office, as well as my office. JOB #: [id number] EXT JOB #:[id number]
== END 2016-12-08 19:30 | disposition home or self-care (01) | DRG 412 ==
LOC: ED 09:13 → MS2 16:37 → ICU 12-04 14:21 → MS2 12-06 19:12
PROVIDERS: ADMIT Nurse Practitioner Gerontology; ATTEND Surgery
PROC: 0F9900Z Drainage of Common Bile Duct with Drainage Device, Open Approach (ICD-10-PCS; 2016-12-04)
PROC: 0DNS4ZZ (ICD-10-PCS; 2016-12-04)
PROC: 0FT40ZZ Resection of Gallbladder, Open Approach (ICD-10-PCS; principal; 2016-12-04 09:00)
DX: K85.90 Acute pancreatitis without necrosis or infection, unspecified (principal); Z94.84 Stem cells transplant status; K80.00 Calculus of gallbladder with acute cholecystitis without obstruction; Q45.3 Other congenital malformations of pancreas and pancreatic duct; K91.71 Accidental puncture and laceration of a digestive system organ or structure during a digestive system procedure; K86.1 Other chronic pancreatitis; K66.0 Peritoneal adhesions (postprocedural) (postinfection); E11.9 Type 2 diabetes mellitus without complications; I10 Essential (primary) hypertension; D46.9 Myelodysplastic syndrome, unspecified; M10.9 Gout, unspecified; E78.5 Hyperlipidemia, unspecified; Z79.4 Long term (current) use of insulin; Z85.6 Personal history of leukemia; Z79.52 Long term (current) use of systemic steroids; Z87.891 Personal history of nicotine dependence; Z87.898 Personal history of other specified conditions
CPT/HCPCS: 36415; 74300; 76705; 80053; 82150; 83036; 83690; 83735; 85025; 87150; 94770; 96361; 96374; 96375; 96376; 99283; 99284; 99285

== ENCOUNTER 2017-01-05 10:45 | Outpatient (CLI) | payer MEDICARE ==
[2017-01-05] MEDS ORDERED: IOTHALAMATE MEGLUMINE 50 ML VIAL IVP ONE (11:52)
--- NOTE | 2017-01-05 17:28 | XRAY Report ---
CHOLANGIOGRAM THROUGH INDWELLING T-TUBE: 01/05/2017 CLINICAL INDICATION: Evaluate for biliary obstruction prior to tube removal. FINDINGS: The patient's indwelling T-tube was injected with Conray. There was free flow of contrast through the tube, the common bile duct, and into the duodenum, as well as opacification of the proximal intrahepatic ducts. No fixed intraluminal filling defect is seen to suggest choledocholithiasis. Five spot images were obtained, and 49 seconds of fluoroscopy time was utilized. IMPRESSION: NO EVIDENCE OF COMMON DUCT OBSTRUCTION. NO EVIDENT CHOLEDOCHOLITHIASIS. JOB #: [id number] EXT JOB #: [id number] NAKITA
== END 2017-01-05 10:46 | disposition home or self-care (01) ==
LOC: DI 10:45
PROVIDERS: ATTEND Surgery
DX: K80.20 Calculus of gallbladder without cholecystitis without obstruction (principal)
CPT/HCPCS: 76000; Q9961

== ENCOUNTER 2017-01-25 05:40 | Emergency (ER) | payer MEDICARE ==
--- NOTE | 2017-01-25 06:00 | ED Physician Documentation ---
PD HPI ABD PAIN - Stated complaint Stated Complaint: ABDOMINAL PAIN - Chief complaint Chief Complaint: Abd Pain - History obtained from History obtained from: Patient - History of Present Illness Timing - onset: How many days ago (3) Timing - duration: Days (3) Timing - details: Gradual onset, Constant, Waxing and waning Pain level now: 10 Quality: Pain Location: RUQ Radiation: Other (no radiation) Improved by: Other (no ameliorating factors) Worsened by: Palpation Associated symptoms: Constipation. No: Fever, Nausea, Vomiting, Diarrhea Similar symptoms before: Has not had sx before (h/o pancreatitis, but patient feels this is not similar to his previous pancreatitis episodes) Recently seen: Surgery (cholecystectomy last month) Review of Systems Constitutional: reports: Reviewed and negative Cardiac: reports: Reviewed and negative Respiratory: reports: Reviewed and negative GI: reports: Abdominal Pain, Constipation. denies: Abdominal Swelling, Nausea, Vomiting : denies: Dysuria, Frequency PD PAST MEDICAL HISTORY - Past Medical History Past Medical History: Yes Cardiovascular: None Respiratory: None Neuro: None Endocrine/Autoimmune: Type 2 diabetes GI: Pancreatitis HEENT: None Musculoskeletal: Gout Derm: None - Past Surgical History Past Surgical History: Yes - Present Medications Home Medications: Ambulatory Orders Medication Instructions Recorded Confirmed Allopurinol 300 mg PO DAILY 10/04/12 01/25/17 Cholecalciferol (Vitamin D3) 1,000 unit PO DAILY 10/04/12 01/25/17 [Vitamin D3] Lisinopril 20 mg PO BID 10/04/12 01/25/17 Multivitamin [Multivitamins] 1 each PO DAILY 10/04/12 01/25/17 Omeprazole [PriLOSEC] 20 mg PO QDAC 10/04/12 01/25/17 Insulin NPH Human Isophane 40 unit SQ BID 02/12/13 01/25/17 [Humulin N] Atorvastatin Calcium 20 mg PO QPM 10/23/15 01/25/17 Insulin Regular, Human [Humulin R] 30 unit SQ QID 10/23/15 01/25/17 Sildenafil Citrate [Sildenafil] 20 - 40 mg PO DAILY 10/23/15 01/25/17 Magnesium Oxide [Magnesium] 2,000 mg PO DAILY #0 10/28/15 01/25/17 Metoprolol Tartrate [Lopressor] 50 mg PO BID #28 tablet 10/28/15 01/25/17 Hydrocodone/Acetaminophen 1 - 2 tab PO Q6H PRN 11/17/15 01/25/17 [Hydrocodone-APAP 5-300] HYDROmorphone [Dilaudid] 2 mg PO BID PRN 11/15/16 01/25/17 predniSONE [Deltasone] 7.5 mg PO Q48H 12/03/16 01/25/17 Fenofibrate Nanocrystallized 145 mg PO DAILY 12/04/16 01/25/17 [Fenofibrate] Insulin NPH Human Isophane 90 units SUBQ BID 12/04/16 01/25/17 [Humulin N] HYDROcod/ACETAM 5/325 [[place] 5/325] 2 tab PO Q4HR PRN #40 tablet 12/08/16 Enoxaparin [Lovenox] 80 mg SUBQ Q24H #2 syringe 01/25/17 HYDROcod/ACETAM 5/325 [[place] 5/325] 1 - 2 ea PO Q6H PRN #20 tablet 01/25/17 Warfarin [Coumadin] 5 mg PO DAILY #10 tablet 01/25/17 - Allergies Allergies/Adverse Reactions: Allergies Allergy/AdvReac Type Severity Reaction Status Date / Time No Known Drug Allergies Allergy Verified 01/25/17 05:48 - Social History Does the pt smoke?: No Smoking Status: Never smoker Does the pt drink ETOH?: No Does the pt have substance abuse?: No - Immunizations Immunizations are current?: Yes - POLST Patient has POLST: No POLST Status: Full Code PD ED PE NORMAL - Vitals Vital signs reviewed: Yes - General General: Alert and oriented X 3, Well developed/nourished, Other (appears to be in mild painful distress) - HEENT HEENT: Moist mucous membranes - Cardiac Cardiac: RRR, No murmur - Respiratory Respiratory: No respiratory distress, Clear bilaterally - Abdomen Abdomen: Normal bowel sounds, Soft, Non tender, Non distended - Back Back: No CVA TTP - Derm Derm: No rash - Extremities Extremities: No edema Results - Vitals Vitals: Vital Signs - 24 hr 01/25/17 10:54 Heart Rate 84 Respiratory 14 Rate Blood Pressure 132/72 H O2 Saturation 98 Oxygen O2 Source Room air - Labs Labs: Laboratory Tests 10/01/25/17 01/25/17 06:16 06:16 06:16 WBC 13.3 H RBC 5.10 Hgb 16.3 Hct 50.6 MCV 99.1 H MCH 31.9 H MCHC 32.2 RDW 14.8 Plt Count 179 MPV 8.2 Neut # 8.9 H Lymph # 3.1 [place] # 1.2 H Eos # 0.1 Baso # 0.1 Absolute Nucleated RBC 0.00 Nucleated RBC % 0.0 Sodium 134 L Potassium 4.3 Chloride 97 L Carbon Dioxide 23 Anion Gap 14.0 H BUN 21 H Creatinine 1.4 H Estimated GFR (MDRD) 51 L Glucose 306 H Calcium 11.2 H Total Bilirubin 1.0 AST 27 ALT 29 Alkaline Phosphatase 78 Total Protein 8.0 Albumin 5.2 Globulin 2.8 Albumin/Globulin Ratio 1.9 Amylase 77 Lipase 67 H - Rads (name of study) CT A/P Radiology: Prelim report reviewed, See rad report CT chest angio/PE study Radiology: Prelim report reviewed, See rad report PD MEDICAL DECISION MAKING - ED course Complexity details: reviewed results, re-evaluated patient, considered differential, d/w patient ED course: Patient's CT A/P does not reveal significant intraabdominal pathology, but s/o right PE, and thus CTA chest performed, and this confirmed right-sided PE. Despite this, patient had no dyspnea (neither on exam nor c/o), and vital signs were stable during ED stay; his chief complaint was pain. Case d/w Dr. Zhoa ( hospitalist), who opines that patient can be managed in outpatient setting, which I agree with and patient was also agreeable with (again, patient was primarily concerned about pain control). I d/w patient the options for blood thinning medications, and he prefers coumadin (due to cost and reversability) over the newer agents (such as pradaxa). I explained to patient that he needs to f/u with his primary care physician within the next few days for blood tests , possible adjustment of his coumadin rx, and to be continued on the coumadin ( given 10 day supply rx by me, as well as 3 days of lovenox to bridge). Departure - Departure Disposition: 01 Home, Self Care Clinical Impression: Pulmonary embolus, right Condition: Good Instructions: Embolism Pulmonary, Coumadin Follow-Up: GWEN WOLFF MD [Primary Care Provider] - Within 3 Days Prescriptions: Enoxaparin [Lovenox] 80 mg SUBQ Q24H #2 syringe HYDROcod/ACETAM 5/325 [[place] 5/325] 1 - 2 ea PO Q6H PRN #20 tablet PRN Reason: Pain Warfarin [Coumadin] 5 mg PO DAILY #10 tablet Discharge Date/Time: 01/25/17 11:09
[2017-01-25] MEDS ORDERED: SODIUM CHLORIDE 0.9% 1,000 ML IV STA ×2 (06:20→07:53)
[2017-01-25] MEDS ORDERED: HYDROmorphone 0.5 MG/0.5 ML SYRINGE IVP STA ×2 (06:20→09:15)
[2017-01-25 06:26] LABS: BASOPHILS # (AUTO) 0.1 10^3/uL (0.0-0.1); BASOPHILS % (AUTO) 0.5 %; EOSINOPHILS # (AUTO) 0.1 10^3/uL (0.0-0.7); EOSINOPHILS % (AUTO) 0.9 %; HCT - HEMATOCRIT 50.6 % (42.0-52.0); HGB - HEMOGLOBIN 16.3 g/dL (14.0-18.0); LYMPHOCYTES # (AUTO) 3.1 10^3/uL (1.5-3.5); LYMPHOCYTES % (AUTO) 23.2 %; MEAN CORPUSCULAR HEMOGLOBIN 31.9 pg (27.0-31.0); MEAN CORPUSCULAR HGB CONC 32.2 g/dL (32.0-36.0); MEAN CORPUSCULAR VOLUME 99.1 fL (80.0-94.0); MEAN PLATELET VOLUME 8.2 fL (7.4-11.4); MONOCYTES # (AUTO) 1.2 10^3/uL (0.0-1.0); MONOCYTES % (AUTO) 8.7 %; NEUTROPHILS # (AUTO) 8.9 10^3/uL (1.5-6.6); NEUTROPHILS % (AUTO) 66.7 %; RED CELL DISTRIBUTION WIDTH 14.8 % (12.0-15.0); UNCORRECTED WHITE BLOOD COUNT 13.3 x10^3/uL; WHITE BLOOD COUNT 13.3 x10^3/uL (4.8-10.8)
[2017-01-25] MEDS ORDERED: HYDROmorphone 1 MG/ML SYRINGE ONE ×2 (06:29→09:26)
[2017-01-25 06:37] LABS: ALBUMIN/GLOBULIN RATIO 1.9 (1.0-2.2); CALCIUM 11.2 mg/dL (8.5-10.3); CREATININE 1.4 mg/dL (0.6-1.2); POTASSIUM 4.3 mmol/L (3.5-5.0)
[2017-01-25] MEDS ORDERED: IOPAMIDOL-300 100 ML VIAL ONE ×2 (06:50→08:04)
[2017-01-25] MEDS ORDERED: IOPAMIDOL-300 100 ML VIAL IVP ONE (06:57)
--- NOTE | 2017-01-25 07:34 | CT Report ---
EXAM: CT ABDOMEN AND PELVIS EXAM DATE: 01/25/2017 07:01 AM. CLINICAL HISTORY: Abd. pain. COMPARISONS: CT 03/01/2016. TECHNIQUE: Routine helical CT imaging was performed through the abdomen and pelvis. IV contrast: 60ML ISOVUE 300. Enteric contrast: No. Reconstructions: Coronal and sagittal. In accordance with CT protocol optimization, one or more of the following dose reduction techniques w ere utilized for this exam: automated exposure control, adjustment of mA and/or KV based on patient s ize, or use of iterative reconstructive technique. FINDINGS: Lung Bases: Unremarkable. Mild bulging of fat at the posterior right hemidiaphragm that may reflect a small Bochdalek hernia. Liver: Low-attenuation appearance diffusely. Gallbladder/Bile Ducts: Prior cholecystectomy. No definite ductal dilation. Spleen: Normal. Pancreas: Mildly atrophic appearance with borderline prominent distal duct again noted. Adrenal Glands: Normal. Kidneys: Symmetric enhancement. Too small to characterize low-attenuation lesion at the medial aspect of the left kidney upper pole, likely a small cyst. No hydronephrosis on either side. Peritoneal Cavity/Bowel: No definite dilated loops of bowel to suggest obstruction. There is some aldana itation in assessment of bowel secondary to incomplete distention and lack of oral contrast. Appendix appears unremarkable. No free air. No discrete collection. No bulky adenopathy. Small amount of grou ndglass within the right upper quadrant of the abdomen to the region of the gallbladder fossa. Additi onally, small amount of linear-appearing groundglass within the anterior abdominal wall, which may re flect recent surgical change. Pelvic Organs: Urinary bladder appears unremarkable. Prostate appears stable. Small calcification in the inguinal canals bilaterally. Vasculature: Atherosclerotic vascular calcifications. Partially visualized probable filling defect wi thin the right lower lobe pulmonary artery. Bones: A few small sclerotic foci in the pelvis, which may reflect small bone islands. Mild degenerat omkar change of the spine. Other: None. IMPRESSION: 1. At the visualized lung bases, a visualized portion of the right lower lobe pulmonary artery appear s to contain filling defect, which is highly suspicious for pulmonary embolism. However, this is only partially visualized and limited assessment on this abdominal study. Recommend further evaluation. 2. Small amount of groundglass inflammation within the fat in the right upper quadrant of the abdomen with no discrete collection visualized. There is also small amount within the anterior abdominal wal l subcutaneous soft tissues. These findings may reflect small amount of residual postsurgical change from recent cholecystectomy. No biliary ductal dilation or collection identified. 3. Low-attenuation appearance of the liver diffusely, suggesting hepatic steatosis. Critical findings discussed with Dr. Paulino at approximately 7:25 AM on 01/25/2017. [facility] Referring Provider Line: [phone] SITE ID: [id number]
--- NOTE | 2017-01-25 08:52 | CT Report ---
EXAM: CT ANGIOGRAM CHEST EXAM DATE: 01/25/2017 08:13 AM. CLINICAL HISTORY: Right chest pain, abnormal density in the right lower lobe pulmonary artery low in the same date abdominal CT, follow-up exam. COMPARISON: Chest CT on 10/25/2015, lower chest imaging from the same dated abdominal pelvic CT. TECHNIQUE: Routine helical imaging was performed through the chest in the pulmonary arterial phase. I V Contrast: 50 cc Isovue 300. Reconstructions: Coronal 3-D MIP reconstructions.Sagittal and coronal. In accordance with CT protocol optimization, one or more of the following dose reduction techniques w ere utilized for this exam: automated exposure control, adjustment of mA and/or KV based on patient s ize, or use of iterative reconstructive technique. FINDINGS: Pulmonary Arteries: Diagnostic quality: Adequate through the segmental arteries. Central filling defect in the distal rig ht main pulmonary artery 2-D lobar and segmental pulmonary arteries of the right lower lobe and to ri ght upper lobe visualized, compatible with acute pulmonary emboli. The central pulmonary artery is no t dilated, the pulmonary arch trunk measured 2.5 cm in AP diameter. RV/LV is within normal limits. There is no interventricular septal bowing. There is no reflux of cont rast material in the IVC. Lungs/Pleura: No consolidation, nodules, or edema. No effusions or pneumothorax. Mediastinum: There are moderate size calcified plaques in the LAD coronary artery diffusely and small calcified plaque in the proximal circumflex coronary artery without cardiac enlargement. No mediasti nal mass Or adenopathy. There is a persistent left superior intercostal vein, a normal variation. Thoracic Aorta: Unremarkable. Upper Abdomen: There is again diffuse fatty replacement in the liver. Without to sunrise hepatic mass or contour change. The visualized pancreas again demonstrated diffuse mild atrophic with mild main d uctal dilatation, similar to the prior abdominal CT exam. Status post cholecystectomy is again seen. IMPRESSION: 1. Acute type pulmonary emboli in the distal right main pulmonary artery to the lobar and segmental p ulmonary arteries of the right lower lobe and right upper lobe without evidence of right ventricle st rain. 2. Negative for pulmonary opacification, pneumonia or pleural effusion. 3. Coronary artery disease without cardiomegaly. 4. Again seen are the hepatic steatosis and chronic changes in the pancreas, similar to the findings on the same date abdominal CT exam, slightly worsening since last chest CT exam. CRITICAL RESULT: The findings of acute pulmonary emboli were discussed on the phone with Dr Chang Paulino . on 01/25/2017 at 8:40 AM [facility] Referring Provider Line: [phone] SITE ID: [id number]
[2017-01-25] MEDS ORDERED: HYDROmorphone 1 MG/ML SYRINGE IVP STA (09:17)
[2017-01-25] MEDS ORDERED: WARFARIN 5 MG TABLET PO STA (09:39)
[2017-01-25] MEDS ORDERED: ENOXAPARIN 80 MG/0.8 ML SYRINGE SUBQ STA (09:42)
[2017-01-25] MEDS ORDERED: ENOXAPARIN 80 MG/0.8 ML SYRINGE SUBQ ONE (10:23)
[2017-01-25 10:55] VITALS: BP 132/72
== END 2017-01-25 11:09 | disposition home or self-care (01) ==
LOC: ED 05:40
DX: I26.99 Other pulmonary embolism without acute cor pulmonale (principal); E11.9 Type 2 diabetes mellitus without complications; Z79.4 Long term (current) use of insulin; I25.10 Atherosclerotic heart disease of native coronary artery without angina pectoris; Z86.39 Personal history of other endocrine, nutritional and metabolic disease; M10.9 Gout, unspecified
CPT/HCPCS: 36415; 71275; 74177; 80053; 82150; 83690; 85025; 96361; 96372; 96374; 96376; 99284; A9270; J1170; J1650; Q9967

== ENCOUNTER 2017-02-08 13:11 | Outpatient (CLI) | payer MEDICARE | END 2017-02-08 13:12 | disposition home or self-care (01) | LOC: LAB.F 13:11 | PROVIDERS: ATTEND Family Medicine | DX: I26.99 Other pulmonary embolism without acute cor pulmonale (principal) | CPT/HCPCS: 85610 ==

== ENCOUNTER 2017-02-11 13:28 | Outpatient (CLI) | payer MEDICARE | END 2017-02-11 13:29 | disposition home or self-care (01) | LOC: LAB.F 13:28 | PROVIDERS: ATTEND Family Medicine | DX: Z53.9 Procedure and treatment not carried out, unspecified reason (principal) ==

== ENCOUNTER 2017-02-21 10:18 | Outpatient (CLI) | payer MEDICARE | END 2017-02-21 10:19 | disposition home or self-care (01) | LOC: LAB.F 10:18 | PROVIDERS: ATTEND Family Medicine | DX: I26.99 Other pulmonary embolism without acute cor pulmonale (principal) | CPT/HCPCS: 85610 ==

== ENCOUNTER 2017-02-24 14:57 | Outpatient (CLI) | payer MEDICARE ==
[2017-02-24 18:05] LABS: PSA FREE 0.27 ng/mL (0.16-2.81)
[2017-02-24 18:06] LABS: PSA TOTAL 1.06 ng/mL (0.000-2.000)
== END 2017-02-24 14:58 | disposition home or self-care (01) ==
LOC: LAB.F 14:57
PROVIDERS: ATTEND Family Medicine
DX: N40.1 Benign prostatic hyperplasia with lower urinary tract symptoms (principal)
CPT/HCPCS: 36415; 84153; 84154

== ENCOUNTER 2017-03-03 10:53 | Outpatient (CLI) | payer MEDICARE | END 2017-03-03 10:54 | disposition home or self-care (01) | LOC: LAB.F 10:53 | PROVIDERS: ATTEND Family Medicine | DX: I26.99 Other pulmonary embolism without acute cor pulmonale (principal) | CPT/HCPCS: 85610 ==

== ENCOUNTER 2017-03-07 12:10 | Outpatient (CLI) | payer MEDICARE | END 2017-03-07 12:11 | disposition home or self-care (01) | LOC: LAB.F 12:10 | PROVIDERS: ATTEND Family Medicine | DX: I26.99 Other pulmonary embolism without acute cor pulmonale (principal) | CPT/HCPCS: 85610 ==

== ENCOUNTER 2017-03-17 07:23 | Outpatient (CLI) | payer MEDICARE | END 2017-03-17 07:24 | disposition home or self-care (01) | LOC: LAB.F 07:23 | PROVIDERS: ATTEND Family Medicine | DX: I26.99 Other pulmonary embolism without acute cor pulmonale (principal) | CPT/HCPCS: 85610 ==

== ENCOUNTER 2017-04-04 11:23 | Outpatient (CLI) | payer MEDICARE | END 2017-04-04 11:24 | disposition home or self-care (01) | LOC: LAB.F 11:23 | PROVIDERS: ATTEND Family Medicine | DX: I26.99 Other pulmonary embolism without acute cor pulmonale (principal) | CPT/HCPCS: 85610 ==

== ENCOUNTER 2017-05-11 08:00 | Outpatient (CLI) | payer MEDICARE | END 2017-05-11 08:01 | disposition home or self-care (01) | LOC: LAB.R 08:00 → LAB.F 08:01 | PROVIDERS: ATTEND Family Medicine | DX: I26.99 Other pulmonary embolism without acute cor pulmonale (principal) | CPT/HCPCS: 85610 ==

== ENCOUNTER 2017-05-11 16:10 | Outpatient (CLI) | payer MEDICARE ==
--- NOTE | 2017-05-12 09:31 | XRAY Report ---
TWO VIEW CHEST: 05/11/2017 CLINICAL INDICATION: Cough. FINDINGS: Frontal and lateral views of the chest demonstrate a normal cardiac silhouette. The lungs are clear. No effusion or pneumothorax is present. IMPRESSION: NORMAL CHEST. TD: 05/12/2017 09:30
== END 2017-05-11 16:11 | disposition home or self-care (01) ==
LOC: DI.S 16:10
PROVIDERS: ATTEND Nurse Practitioner Family
DX: R05 Cough (principal); I26.99 Other pulmonary embolism without acute cor pulmonale
CPT/HCPCS: 71046; 85610

== ENCOUNTER 2017-06-02 13:21 | Outpatient (CLI) | payer MEDICARE ==
[2017-06-02 17:42] LABS: CALCIUM 10.4 mg/dL (8.5-10.3); CREATININE 1.6 mg/dL (0.6-1.2)
[2017-06-02 18:32] LABS: HB2 TOTAL 14.7 g/dL; HEMOGLOBIN A1C 0.96 g/dL; HEMOGLOBIN A1C % 8.1 % (4.6-6.2)
== END 2017-06-02 13:22 | disposition home or self-care (01) ==
LOC: LAB.F 13:21
PROVIDERS: ATTEND Family Medicine
DX: I10 Essential (primary) hypertension (principal); E11.9 Type 2 diabetes mellitus without complications; I26.99 Other pulmonary embolism without acute cor pulmonale
CPT/HCPCS: 36415; 80048; 83036; 85610

== ENCOUNTER 2017-07-14 08:39 | Outpatient (CLI) | payer MEDICARE | END 2017-07-14 08:40 | disposition home or self-care (01) | LOC: LAB.F 08:39 | PROVIDERS: ATTEND Family Medicine | DX: I26.99 Other pulmonary embolism without acute cor pulmonale (principal) | CPT/HCPCS: 85610 ==

== ENCOUNTER 2017-07-14 11:50 | Outpatient (CLI) | payer MEDICARE ==
--- NOTE | 2017-07-14 14:21 | XRAY Report ---
TWO VIEW ABDOMEN: 07/14/2017 CLINICAL INDICATION: Pain. FINDINGS: Supine and upright views of the abdomen demonstrate postoperative changes of cholecystectomy. There is a large amount of stool in the ascending and transverse colon. No small bowel dilatation or free gas is seen. IMPRESSION: CONSTIPATION. NO EVIDENCE OF BOWEL OBSTRUCTION OR PERFORATION. TD: 07/14/2017 14:20
== END 2017-07-14 11:51 | disposition home or self-care (01) ==
LOC: DI.S 11:50
PROVIDERS: ATTEND Family Medicine
DX: K59.00 Constipation, unspecified (principal); I26.99 Other pulmonary embolism without acute cor pulmonale; R10.9 Unspecified abdominal pain
CPT/HCPCS: 36415; 74019; 80048; 82150; 83690; 85610

== ENCOUNTER 2017-07-14 13:01 | Outpatient (CLI) | payer MEDICARE ==
[2017-07-14 18:12] LABS: CALCIUM 10.1 mg/dL (8.5-10.3); CREATININE 1.1 mg/dL (0.6-1.2)
== END 2017-07-14 13:02 | disposition home or self-care (01) ==
LOC: LAB.F 13:01
PROVIDERS: ATTEND Family Medicine
DX: R10.9 Unspecified abdominal pain (principal)
CPT/HCPCS: 36415; 80048; 82150; 83690

== ENCOUNTER 2017-07-27 13:04 | Outpatient (CLI) | payer MEDICARE | END 2017-07-27 13:05 | disposition home or self-care (01) | LOC: LAB.F 13:04 | PROVIDERS: ATTEND Family Medicine | DX: I26.99 Other pulmonary embolism without acute cor pulmonale (principal) | CPT/HCPCS: 85610 ==

== ENCOUNTER 2017-08-29 11:14 | Outpatient (CLI) | payer MEDICARE | END 2017-08-29 11:15 | disposition home or self-care (01) | LOC: LAB.F 11:14 | PROVIDERS: ATTEND Family Medicine | DX: I26.99 Other pulmonary embolism without acute cor pulmonale (principal) | CPT/HCPCS: 85610 ==

== ENCOUNTER 2017-09-05 10:50 | Outpatient (CLI) | payer MEDICARE | END 2017-09-05 10:51 | disposition home or self-care (01) | LOC: LAB.F 10:50 | PROVIDERS: ATTEND Family Medicine | DX: I26.99 Other pulmonary embolism without acute cor pulmonale (principal) | CPT/HCPCS: 85610 ==

== ENCOUNTER 2017-09-12 10:37 | Outpatient (CLI) | payer MEDICARE | END 2017-09-12 10:38 | disposition home or self-care (01) | LOC: LAB.F 10:37 | PROVIDERS: ATTEND Family Medicine | DX: I26.99 Other pulmonary embolism without acute cor pulmonale (principal) | CPT/HCPCS: 85610 ==

== ENCOUNTER 2017-09-30 08:23 | Outpatient (CLI) | payer MEDICARE | END 2017-09-30 08:24 | disposition home or self-care (01) | LOC: LAB.F 08:23 | PROVIDERS: ATTEND Family Medicine | DX: I26.99 Other pulmonary embolism without acute cor pulmonale (principal) | CPT/HCPCS: 85610 ==

== ENCOUNTER 2017-10-10 11:50 | Outpatient (CLI) | payer MEDICARE | END 2017-10-10 11:51 | disposition home or self-care (01) | LOC: LAB.F 11:50 | PROVIDERS: ATTEND Family Medicine | DX: I26.99 Other pulmonary embolism without acute cor pulmonale (principal) | CPT/HCPCS: 85610 ==

== ENCOUNTER 2017-10-18 14:00 | Outpatient (CLI) | payer MEDICARE | END 2017-10-18 14:01 | disposition home or self-care (01) | LOC: LAB.F 14:00 | PROVIDERS: ATTEND Family Medicine | DX: I26.99 Other pulmonary embolism without acute cor pulmonale (principal) | CPT/HCPCS: 85610 ==

== ENCOUNTER 2017-10-24 06:06 | Day surgery (SDC) | payer MEDICARE ==
[2017-10-24] MEDS ORDERED: fentaNYL 250 MCG/5 ML VIAL IVP ONE (06:07)
[2017-10-24] MEDS ORDERED: MIDAZOLAM 2 MG/2 ML VIAL IVP ONE (06:07)
[2017-10-24] MEDS ORDERED: LACTATED RINGERS 1,000 ML IV ONE ×2 (06:55→08:04)
[2017-10-24 08:28] VITALS: BP 92/55
== END 2017-10-24 06:07 | disposition home or self-care (01) ==
LOC: SDS 06:06
PROVIDERS: ATTEND Surgery
PROC: 0DJD8ZZ Inspection of Lower Intestinal Tract, Via Natural or Artificial Opening Endoscopic (ICD-10-PCS; principal; 2017-10-24 07:30)
DX: R10.9 Unspecified abdominal pain (principal); K59.00 Constipation, unspecified; K63.89 Other specified diseases of intestine; K64.8 Other hemorrhoids; K64.4 Residual hemorrhoidal skin tags; K57.30 Diverticulosis of large intestine without perforation or abscess without bleeding; I10 Essential (primary) hypertension; Z79.01 Long term (current) use of anticoagulants; E11.9 Type 2 diabetes mellitus without complications
CPT/HCPCS: 45378; J3010; J7120

== ENCOUNTER 2017-10-31 10:56 | Outpatient (CLI) | payer MEDICARE | END 2017-10-31 10:57 | disposition home or self-care (01) | LOC: LAB.F 10:56 | PROVIDERS: ATTEND Family Medicine | DX: I26.99 Other pulmonary embolism without acute cor pulmonale (principal) | CPT/HCPCS: 85610 ==

== ENCOUNTER 2017-11-03 07:58 | Day surgery (SDC) | payer MEDICARE ==
[~2017-11-03 07:58] MED LIST: CYCLOPENTOLATE 1% OPHTH DROPS 2 ML ONE; KETOROLAC 0.45% OPHTH DROPS ONE; PHENYLEPHRINE 2.5% OPHTH 2 ML DROPS ONE; PROPARACAINE 0.5% OPHTH DROPS 15 ML ONE
[2017-11-03] MEDS ORDERED: CYCLOPENTOLATE 1% OPHTH DROPS 2 ML RIGHTEYE ONE (08:15)
[2017-11-03] MEDS ORDERED: PHENYLEPHRINE 2.5% OPHTH 2 ML DROPS RIGHTEYE ONE (08:15)
[2017-11-03] MEDS ORDERED: KETOROLAC 0.45% OPHTH DROPS RIGHTEYE ONE (08:15)
[2017-11-03] MEDS ORDERED: PROPARACAINE 0.5% OPHTH DROPS 15 ML RIGHTEYE ONE ×2 (08:15→09:04)
--- NOTE | 2017-11-03 08:20 | ANESTHESIA ---
Pre-Anesthesia VS, & Labs - Diagnosis senile combined cataract, right - Procedure Right cataract extraction with intra ocular lens Vital Signs: Temp Pulse Resp BP Pulse Ox 37.1 C 18 119/74 100 11/03/17 08:07 11/03/17 08:07 11/03/17 08:07 11/03/17 08:07 Height 5 ft 8 in Weight (kg) 76.9 kg Body Mass Index 24.3 - NPO >8 hours (tea, black at 6am) - Lab Results Other Lab Results: bg 175 Home Medications and Allergies Home Medications: Ambulatory Orders Medication Instructions Recorded Confirmed Allopurinol 300 mg PO DAILY 10/04/12 10/31/17 Cholecalciferol (Vitamin D3) 1,000 unit PO DAILY 10/04/12 10/31/17 [Vitamin D3] Lisinopril 20 mg PO DAILY 10/04/12 10/31/17 Multivitamin [Multivitamins] 1 each PO DAILY 10/04/12 10/31/17 Omeprazole [PriLOSEC] 20 mg PO QDAC 10/04/12 10/31/17 Insulin NPH Human Isophane 40 unit SQ BID 02/12/13 10/31/17 [Humulin N] Atorvastatin Calcium 20 mg PO QPM 10/23/15 10/31/17 Insulin Regular, Human [Humulin R] 10 - 40 unit SQ QID 10/23/15 10/31/17 Sildenafil Citrate [Sildenafil] 20 mg PO BID 10/23/15 10/31/17 Magnesium Oxide [Magnesium] 2,000 mg PO DAILY #0 10/28/15 10/31/17 Hydrocodone/Acetaminophen 1 - 2 tab PO Q6H PRN 11/17/15 10/31/17 [Hydrocodone-APAP 5-300] HYDROmorphone [Dilaudid] 2 mg PO BID PRN 11/15/16 10/31/17 Fenofibrate Nanocrystallized 145 mg PO DAILY 12/04/16 10/31/17 [Fenofibrate] Warfarin [Coumadin] 5 mg PO DAILY #10 tablet 01/25/17 10/31/17 Doxazosin Mesylate 4 mg PO DAILY 05/23/17 10/31/17 Acyclovir 800 mg PO BID 07/13/17 10/31/17 Metoprolol Tartrate [Lopressor] 25 mg PO BID 10/21/17 10/31/17 Allergies/Adverse Reactions: Allergies Allergy/AdvReac Type Severity Reaction Status Date / Time No Known Drug Allergies Allergy Verified 11/03/17 08:30 Anes History & Medical History - Anesthetic History Anesthesia Complications: reports: No previous complications - Medical History Cardiovascular: reports: None, Hypertension Pulmonary: reports: None Gastrointestinal: reports: Pancreatitis Musculoskeletal: reports: Gout Endocrine/Autoimmune: reports: Type 2 diabetes Blood Disorders: reports: None Skin: reports: None Smoking Status: Former smoker - Surgical History General: Cholecystectomy Eyes Ears Nose Throat (EENT): Cataracts (left in past) Exam General: Alert Dental: Poor dentition Mouth Opening: Greater than 4 Fingerbreadths Mallampati classification: II Thyromental Distance: greater than 6 cm Respiratory: Lungs clear Cardiovascular: Regular rate Mental/Cognitive Status: Alert/Oriented X3 Plan Anesthesia Type: MAC Consent for Procedure(s) Verified and Reviewed: No Code Status: Attempt Resuscitation ASA classification: 2-Mild systemic disease Is this case an emergency?: No
[2017-11-03] MEDS ORDERED: LACTATED RINGERS 500 ML IV ONE (08:28)
[2017-11-03] MEDS ORDERED: CHONDR SULF/HYALURONATE SYRINGE IO ONE (09:02)
[2017-11-03] MEDS ORDERED: EPINEPHrine 1 MG/ML AMP IVP ONE (09:02)
[2017-11-03] MEDS ORDERED: BRIMONIDINE 0.2% OPHTH DROPS 5 ML OPTH ONE (09:02)
[2017-11-03] MEDS ORDERED: BSS/LIDOCAINE/EPINEPHRINE 1 ML SYRINGE IO ONE ×2 (09:03)
[2017-11-03] MEDS ORDERED: TRIAMCIN/MOXIFLOX/VANCO 1 ML VIAL IO ONE (09:03)
[2017-11-03] MEDS ORDERED: TIMOLOL 0.5% OPHTH DROPS OPTH ONE (09:03)
[2017-11-03] MEDS ORDERED: MIDAZOLAM 2 MG/2 ML VIAL IVP ONE (09:05)
[2017-11-03 09:26] VITALS: BP 104/67
--- NOTE | 2017-11-03 09:48 | OPERATIVE REPORT ---
DATE OF SERVICE: 11/03/2017 Physician: Umair Washburn MD PREOPERATIVE DIAGNOSIS: Visually significant cataract, right eye. Cataract surgery was performed on the left eye in 2005 by another surgeon. POSTOPERATIVE DIAGNOSIS: Visually significant cataract, right eye. Cataract surgery was performed on the left eye in 2005 by another surgeon. PROCEDURE: Phacoemulsification with posterior chamber intraocular lens implant , right eye. SURGEON: Umair Washburn MD ANESTHESIA: Monitored anesthesia care. COMPLICATIONS: None. OPERATIVE INDICATIONS: This is a 62-year-old man with progressive vision loss in the right eye due to a 2+ nuclear sclerotic and 3+ posterior subcapsular cataract. Best corrected visual acuity was 20/70 with hand motion vision, with glare to hand motion vision in the right eye. INDICATIONS FOR SURGERY: Overall decrease in vision, difficulty seeing words on a computer screen, difficulty reading; difficulty seeing words, closed caption or game scores on TV; difficulty seeing street signs, difficulty driving in low light or at night, difficulty driving at night because of headlights from other vehicles and/or street lights, difficulty with glare or bright lights in any situation, and difficulty tracking a golf ball. He was consented at length concerning risks and benefits of cataract surgery, after which he expressed a desire to proceed with surgery. OPERATIVE PROCEDURE: The patient was taken into OR #3 and placed under monitored anesthesia care. A surgical timeout was conducted confirming correct patient, correct procedure, and correct surgical site. He was given topical anesthesia and prepped and draped in the usual sterile fashion. The eye was entered at the 12 and 9 o'clock positions. Intracameral Shugarcaine was injected into the anterior chamber, followed by Viscoat. A continuous-tear curvilinear capsulorrhexis was performed. The nucleus was hydrodissected and phacoemulsified. The cortex was evacuated using automated infusion and aspiration. Toward the end of infusion and aspiration of the cortex, trying to clean up the residual posterior subcapsular cataract, a small hole was produced in the posterior capsule. No vitreous presented so it was elected to put the lens in the bag. Provisc was injected in the capsular bag and a 21.0 diopter intraocular lens was inserted in the bag. Approximately 0.8 mL of a mixture of triamcinolone, moxifloxacin, and vancomycin was injected subconjunctivally in the superior quadrant for infection and inflammation prophylaxis. I and A was used to evacuate the viscoelastic material. The eye was inflated to physiologic pressure using balanced salt solution, and found to be watertight. The patient was taken from the operating room in good condition and given postoperative instructions. TD: 11/03/2017 09:33 NAKITA
== END 2017-11-03 07:59 | disposition home or self-care (01) ==
LOC: SDS 07:58
PROVIDERS: ATTEND Ophthalmology
PROC: 08RJ3JZ Replacement of Right Lens with Synthetic Substitute, Percutaneous Approach (ICD-10-PCS; principal; 2017-11-03 09:00)
DX: H25.811 Combined forms of age-related cataract, right eye (principal); I10 Essential (primary) hypertension; E11.9 Type 2 diabetes mellitus without complications; Z87.891 Personal history of nicotine dependence
CPT/HCPCS: 66984; A9270; J3490; V2632

== ENCOUNTER 2017-11-07 11:09 | Outpatient (CLI) | payer MEDICARE | END 2017-11-07 11:10 | disposition home or self-care (01) | LOC: LAB.F 11:09 | PROVIDERS: ATTEND Family Medicine | DX: I26.99 Other pulmonary embolism without acute cor pulmonale (principal) | CPT/HCPCS: 85610 ==

== ENCOUNTER 2017-11-15 16:00 | Outpatient (CLI) | payer MEDICARE | END 2017-11-15 16:01 | disposition home or self-care (01) | LOC: LAB.F 16:00 | PROVIDERS: ATTEND Family Medicine | DX: I48.91 Unspecified atrial fibrillation (principal); I26.99 Other pulmonary embolism without acute cor pulmonale | CPT/HCPCS: 85610 ==

== ENCOUNTER 2017-11-18 10:35 | Outpatient (CLI) | payer MEDICARE ==
[2017-11-18 17:18] LABS: BASOPHILS # (AUTO) 0.1 10^3/uL (0.0-0.1); BASOPHILS % (AUTO) 1.2 %; EOSINOPHILS # (AUTO) 0.1 10^3/uL (0.0-0.7); EOSINOPHILS % (AUTO) 2.8 %; HGB - HEMOGLOBIN 14.3 g/dL (14.0-18.0); LYMPHOCYTES # (AUTO) 1.7 10^3/uL (1.5-3.5); LYMPHOCYTES % (AUTO) 30.9 %; MEAN CORPUSCULAR HEMOGLOBIN 33.4 pg (27.0-31.0); MEAN CORPUSCULAR HGB CONC 33.7 g/dL (32.0-36.0); MEAN PLATELET VOLUME 8.6 fL (7.4-11.4); MONOCYTES # (AUTO) 0.5 10^3/uL (0.0-1.0); MONOCYTES % (AUTO) 9.3 %; NEUTROPHILS % (AUTO) 55.8 %; PLT - PLATELET COUNT 145 10^3/uL (130-450); RED BLOOD COUNT 4.29 10^6/uL (4.70-6.10); RED CELL DISTRIBUTION WIDTH 15.3 % (12.0-15.0); WHITE BLOOD COUNT 5.4 x10^3/uL (4.8-10.8)
[2017-11-18 18:00] LABS: HB2 TOTAL 15.5 g/dL; HEMOGLOBIN A1C 0.92 g/dL; HEMOGLOBIN A1C % 7.6 % (4.6-6.2)
[2017-11-18 18:20] LABS: ALBUMIN 4.3 g/dL (3.2-5.5); ALBUMIN/GLOBULIN RATIO 1.8 (1.0-2.2); ALKALINE PHOSPHATASE 51 IU/L (42-121); ALT ALANINE AMINOTRANSFERASE 37 IU/L (10-60); AST ASPARTATE AMINOTRANSFERASE 33 IU/L (10-42); BILIRUBIN,TOTAL 0.3 mg/dL (0.2-1.0); BUN - BLOOD UREA NITROGEN 15 mg/dL (6-20); CALCIUM 10.1 mg/dL (8.5-10.3); CARBON DIOXIDE - CO2 26 mmol/L (21-32); CHLORIDE 103 mmol/L (101-111); CHOL/HDL RATIO 4.3 (<5.0); CHOLESTEROL 121 mg/dL; CREATININE 1.3 mg/dL (0.6-1.2); GFR - MDRD 56 (>89); GLUCOSE 130 mg/dL (70-100); HDL CHOLESTEROL 28 mg/dL; LDL CHOLESTEROL,CALCULATED 50 mg/dL; LDL/HDL RATIO 1.8 (<3.6); SODIUM 136 mmol/L (135-145); TOTAL PROTEIN 6.7 g/dL (6.7-8.2); VLDL CHOLESTEROL 43 mg/dL
== END 2017-11-18 10:36 | disposition home or self-care (01) ==
LOC: LAB.F 10:35
PROVIDERS: ATTEND Internal Medicine
DX: E11.649 Type 2 diabetes mellitus with hypoglycemia without coma (principal); I10 Essential (primary) hypertension; D46.9 Myelodysplastic syndrome, unspecified
CPT/HCPCS: 36415; 80053; 80061; 82043; 83036; 83721; 84443; 85025

== ENCOUNTER 2017-12-10 06:29 | Emergency (ER) | payer MEDICARE ==
[2017-12-10] MEDS ORDERED: SODIUM CHLORIDE 0.9% 1,000 ML IV ONE (06:46)
[2017-12-10 07:00] LABS: BASOPHILS % (AUTO) 0.4 %; EOSINOPHILS # (AUTO) 0.1 10^3/uL (0.0-0.7); EOSINOPHILS % (AUTO) 1.2 %; LYMPHOCYTES # (AUTO) 1.6 10^3/uL (1.5-3.5); LYMPHOCYTES % (AUTO) 19.3 %; MEAN CORPUSCULAR HEMOGLOBIN 33.4 pg (27.0-31.0); MEAN CORPUSCULAR HGB CONC 34.2 g/dL (32.0-36.0); MEAN CORPUSCULAR VOLUME 97.8 fL (80.0-94.0); MONOCYTES # (AUTO) 0.5 10^3/uL (0.0-1.0); MONOCYTES % (AUTO) 6.3 %; NEUTROPHILS % (AUTO) 72.8 %; PLT - PLATELET COUNT 147 10^3/uL (130-450); RED BLOOD COUNT 4.48 10^6/uL (4.70-6.10); RED CELL DISTRIBUTION WIDTH 15.3 % (12.0-15.0); WHITE BLOOD COUNT 8.2 x10^3/uL (4.8-10.8)
[2017-12-10 07:14] LABS: ALBUMIN 4.6 g/dL (3.2-5.5); ALBUMIN/GLOBULIN RATIO 1.9 (1.0-2.2); BILIRUBIN,TOTAL 0.7 mg/dL (0.2-1.0); CALCIUM 10.3 mg/dL (8.5-10.3); CREATININE 1.1 mg/dL (0.6-1.2)
[2017-12-10] MEDS ORDERED: HYDROmorphone 1 MG/ML CARPUJECT IVP STA ×2 (07:29→09:23)
[2017-12-10] MEDS ORDERED: ONDANSETRON 4 MG/2 ML VIAL IVP STA ×2 (07:29→09:23)
--- NOTE | 2017-12-10 07:32 | ED Physician Documentation ---
PD HPI ABD PAIN - Stated complaint Stated Complaint: ABD PX - Chief complaint Chief Complaint: Abd Pain - History obtained from History obtained from: Patient, Family - History of Present Illness Timing - onset: How many days ago (3) Timing - duration: Days (3) Timing - details: Gradual onset, Still present Pain level max: 10 Pain level now: 10 Quality: Sharp, Pain Location: LUQ Radiation: Left flank Improved by: Meds Worsened by: Eating Associated symptoms: Nausea, Constipation. 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 He has prior admissions to the hospital for pancreatitis he has had cholelithiasis and is had his gallbladder removed he never had a history of choledocholithiasis. He reports that he has been having a cycle of abdominal pain for about a week followed by 2 weeks of relatively symptom-free days. He has constipation that plays some role in this. He did get some relief with an enema last night but arrives here today with 10/10 pain in the LUQ. He has had CT, MRI and colonoscopy in evaluation for this. He recently stopped the L-carnatine he was taking for peripheral neuropathy. Review of Systems Constitutional: denies: Fever Eyes: denies: Decreased vision Ears: denies: Ear pain Nose: denies: Congestion Throat: denies: Sore throat Cardiac: denies: Chest pain / pressure, Palpitations Respiratory: denies: Dyspnea, Cough GI: reports: Abdominal Pain, Nausea, Constipation. denies: Vomiting : denies: Dysuria, Frequency Skin: denies: Rash Musculoskeletal: denies: Neck pain, Back pain, Extremity pain Neurologic: denies: Generalized weakness, Focal weakness, Numbness PD PAST MEDICAL HISTORY - Past Medical History Past Medical History: Yes Cardiovascular: None, Hypertension Respiratory: None Neuro: None Endocrine/Autoimmune: Type 2 diabetes GI: Pancreatitis HEENT: None Musculoskeletal: Gout Derm: None - Past Surgical History Past Surgical History: Yes General: Cholecystectomy HEENT: Cataracts - Present Medications Home Medications: Ambulatory Orders Medication Instructions Recorded Confirmed Allopurinol 300 mg PO DAILY 10/04/12 11/03/17 Cholecalciferol (Vitamin D3) 1,000 unit PO DAILY 10/04/12 11/03/17 [Vitamin D3] Lisinopril 20 mg PO DAILY 10/04/12 11/03/17 Multivitamin [Multivitamins] 1 each PO DAILY 10/04/12 11/03/17 Omeprazole [PriLOSEC] 20 mg PO QDAC 10/04/12 11/03/17 Insulin NPH Human Isophane 40 unit SQ BID 02/12/13 11/03/17 [Humulin N] Atorvastatin Calcium 20 mg PO QPM 10/23/15 11/03/17 Insulin Regular, Human [Humulin R] 10 - 40 unit SQ QID 10/23/15 11/03/17 Sildenafil Citrate [Sildenafil] 20 mg PO BID 10/23/15 11/03/17 Magnesium Oxide [Magnesium] 2,000 mg PO DAILY #0 10/28/15 11/03/17 Hydrocodone/Acetaminophen 1 - 2 tab PO Q6H PRN 11/17/15 11/03/17 [Hydrocodone-APAP 5-300] HYDROmorphone [Dilaudid] 2 mg PO BID PRN 11/15/16 11/03/17 Fenofibrate Nanocrystallized 145 mg PO DAILY 12/04/16 11/03/17 [Fenofibrate] Warfarin [Coumadin] 5 mg PO DAILY #10 tablet 01/25/17 11/03/17 Doxazosin Mesylate 4 mg PO DAILY 05/23/17 11/03/17 Acyclovir 800 mg PO BID 07/13/17 11/03/17 Metoprolol Tartrate [Lopressor] 25 mg PO BID 10/21/17 11/03/17 - Allergies Allergies/Adverse Reactions: Allergies Allergy/AdvReac Type Severity Reaction Status Date / Time No Known Drug Allergies Allergy Verified 12/10/17 06:41 - Social History Does the pt smoke?: No Smoking Status: Never smoker Does the pt drink ETOH?: No Does the pt have substance abuse?: No - Immunizations Immunizations are current?: Yes - POLST Patient has POLST: No POLST Status: Full Code PD ED PE NORMAL - Vitals Vital signs reviewed: Yes (normal ) - General General: Alert and oriented X 3, No acute distress, Well developed/nourished, Other (does not appear to be in distress this morning. ) - HEENT HEENT: Atraumatic, PERRL, EOMI - Neck Neck: Supple, no meningeal sign - Cardiac Cardiac: RRR, No murmur - Respiratory Respiratory: No respiratory distress, Clear bilaterally - Abdomen Abdomen: Normal bowel sounds, Soft, Non distended, No organomegaly. No: Other (mild LUQ tenderness without garding or rebound. There is tenderness to bimanual palpation of the left kidney. 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-12 intact, No motor deficit, No sensory deficit, Normal speech Eye Opening: Spontaneous Motor: Obeys Commands Verbal: Oriented GCS Score: 15 - Psych Psych: Normal mood, Normal affect Results - Vitals Vitals: Vital Signs - 24 hr 12/10/17 12/10/17 12/10/17 06:38 07:01 07:11 Temperature 36.8 C Heart Rate 98 86 89 Respiratory 17 16 14 Rate Blood Pressure 124/70 120/74 130/81 H O2 Saturation 99 98 98 12/10/17 12/10/17 12/10/17 07:44 08:42 09:32 Temperature Heart Rate 78 83 83 Respiratory 14 14 14 Rate Blood Pressure 128/74 106/72 122/72 O2 Saturation 100 97 98 12/10/17 09:58 Temperature Heart Rate 76 Respiratory 14 Rate Blood Pressure 109/72 O2 Saturation 97 Oxygen O2 Source Room air - Labs Labs: Laboratory Tests 12/10/17 12/10/17 12/10/17 06:56 06:56 06:56 WBC 8.2 RBC 4.48 L Hgb 15.0 Hct 43.8 MCV 97.8 H MCH 33.4 H MCHC 34.2 RDW 15.3 H Plt Count 147 MPV 8.0 Neut # (Auto) 6.0 Lymph # (Auto) 1.6 [place] # (Auto) 0.5 Eos # (Auto) 0.1 Baso # (Auto) 0.0 Absolute Nucleated RBC 0.00 Nucleated RBC % 0.0 PT 12.2 INR 1.1 Sodium 131 L Potassium 4.2 Chloride 100 L Carbon Dioxide 23 Anion Gap 8.0 BUN 15 Creatinine 1.1 Estimated GFR (MDRD) 68 L Glucose 222 H Calcium 10.3 Total Bilirubin 0.7 AST 27 ALT 34 Alkaline Phosphatase 49 Total Protein 7.0 Albumin 4.6 Globulin 2.4 Albumin/Globulin Ratio 1.9 Lipase 51 Urine Color Urine Clarity Urine pH Ur Specific [place] Urine Protein Urine Glucose (UA) Urine Ketones Urine Occult Blood Urine Nitrite Urine Bilirubin Urine Urobilinogen Ur Leukocyte Esterase Ur Microscopic Review Urine Culture Comments 12/10/17 07:50 WBC RBC Hgb Hct MCV MCH MCHC RDW Plt Count MPV Neut # (Auto) Lymph # (Auto) [place] # (Auto) Eos # (Auto) Baso # (Auto) Absolute Nucleated RBC Nucleated RBC % PT INR Sodium Potassium Chloride Carbon Dioxide Anion Gap BUN Creatinine Estimated GFR (MDRD) Glucose Calcium Total Bilirubin AST ALT Alkaline Phosphatase Total Protein Albumin Globulin Albumin/Globulin Ratio Lipase Urine Color YELLOW Urine Clarity CLEAR Urine pH 7.0 Ur Specific [place] 1.010 Urine Protein NEGATIVE Urine Glucose (UA) 500 H Urine Ketones NEGATIVE Urine Occult Blood NEGATIVE Urine Nitrite NEGATIVE Urine Bilirubin NEGATIVE Urine Urobilinogen 0.2 (NORMAL) Ur Leukocyte Esterase NEGATIVE Ur Microscopic Review NOT INDICATED Urine Culture Comments NOT INDICATED PD MEDICAL DECISION MAKING - ED course Complexity details: reviewed old records, reviewed results, re-evaluated patient, considered differential, d/w patient, d/w family ED course: 62-year-old male with a complicated past medical history including CML AML bone marrow transplant [id number] disease and pulmonary embolism has had chronic abdominal pain with flares lasting about 1 week. He is here in the emergency department this morning with a flare of the has been ongoing for 3 days. He is mildly dehydrated and saline is administered as well as Dilaudid and Zofran with marked improvement in the patient's pain. He reports the pain is no different than his usual and review of his medical r ecord indicates a variety of ailments that have been attributed to this pain including pancreatitis constipation and gallbladder disease. Here in the emergency department after he has received improvement in his pain with the Dilaudid and Zofran he registers a pain of about 2 out of 10. He is administered a GI cocktail with no change in his pain. The pain returned to 5/10, he was given a second dose of Dilaudid and discharged to home. No diagnostic imaging was done today. The patient reports his pain is "no different" than in the past when diagnostics were obtained and were negative. He has plans for follow up with GI. - Sepsis Event Vital Signs: Vital Signs - 24 hr 12/10/17 12/10/17 12/10/17 06:38 07:01 07:11 Temperature 36.8 C Heart Rate 98 86 89 Respiratory 17 16 14 Rate Blood Pressure 124/70 120/74 130/81 H O2 Saturation 99 98 98 12/10/17 12/10/17 12/10/17 07:44 08:42 09:32 Temperature Heart Rate 78 83 83 Respiratory 14 14 14 Rate Blood Pressure 128/74 106/72 122/72 O2 Saturation 100 97 98 12/10/17 09:58 Temperature Heart Rate 76 Respiratory 14 Rate Blood Pressure 109/72 O2 Saturation 97 Oxygen O2 Source Room air Departure - Departure Disposition: 01 Home, Self Care Clinical Impression: Abdominal pain Qualifiers: Abdominal location: left upper quadrant Qualified Code(s): R10.12 - Left upper quadrant pain Condition: Stable Instructions: ED Abdominal Pain Unkn Cause Male Follow-Up: Darwin Calvert MD [Primary Care Provider] -
[2017-12-10 08:05] LABS: BILIRUBIN,URINE NEGATIVE (NEGATIVE); GLUCOSE, URINE (UA) 500 mg/dL (NEGATIVE); KETONES,URINE (UA) NEGATIVE (NEGATIVE); LEUKOCYTE ESTERASE, URINE NEGATIVE (NEGATIVE); NITRITE,URINE NEGATIVE (NEGATIVE); OCCULT BLOOD,URINE NEGATIVE (NEGATIVE); PROTEIN,URINE NEGATIVE (NEGATIVE); UROBILINOGEN,URINE 0.2 (NORMAL) E.U./dL (NORMAL)
[2017-12-10 08:11] LABS: CLARITY,URINE CLEAR (CLEAR)
[2017-12-10 08:16] LABS: INR 1.1 (0.8-1.2); PT - PROTHROMBIN TIME 12.2 secs (9.9-12.6)
[2017-12-10] MEDS ORDERED: LIDOCAINE VISCOUS 2% 15 ML UDC MM STA (08:39)
[2017-12-10] MEDS ORDERED: MAG HYDROX/AL HYDROX/SIMETH 30 ML UDC PO STA (08:40)
[2017-12-10 09:59] VITALS: BP 109/72
== END 2017-12-10 10:42 | disposition home or self-care (01) ==
LOC: ED 06:29
DX: G89.29 Other chronic pain (principal); R10.12 Left upper quadrant pain; E86.0 Dehydration; I10 Essential (primary) hypertension; E11.42 Type 2 diabetes mellitus with diabetic polyneuropathy; Z79.4 Long term (current) use of insulin
CPT/HCPCS: 36415; 80053; 81003; 83690; 85025; 85610; 96361; 96374; 96375; 96376; 99283; 99284; A9270; J1170; 81001; 87086

== ENCOUNTER 2018-03-15 12:26 | Day surgery (SDC) | payer MEDICARE ==
[2018-03-15] MEDS ORDERED: LACTATED RINGERS 1,000 ML IV ONE ×2 (13:07→15:19)
[2018-03-15] MEDS ORDERED: MIDAZOLAM 2 MG/2 ML VIAL IVP ONE (14:15)
[2018-03-15] MEDS ORDERED: fentaNYL 250 MCG/5 ML VIAL IVP ONE (14:15)
[2018-03-15 15:23] VITALS: BP 92/58
== END 2018-03-15 12:27 | disposition home or self-care (01) ==
LOC: SDS 12:26
PROVIDERS: ATTEND Internal Medicine
PROC: 0DB98ZX Excision of Duodenum, Via Natural or Artificial Opening Endoscopic, Diagnostic (ICD-10-PCS; 2018-03-15)
PROC: 0DB68ZX Excision of Stomach, Via Natural or Artificial Opening Endoscopic, Diagnostic (ICD-10-PCS; 2018-03-15)
PROC: 0DBB8ZX Excision of Ileum, Via Natural or Artificial Opening Endoscopic, Diagnostic (ICD-10-PCS; principal; 2018-03-15 13:30)
PROC: 0DBE8ZX Excision of Large Intestine, Via Natural or Artificial Opening Endoscopic, Diagnostic (ICD-10-PCS; 2018-03-15 13:30)
DX: R10.13 Epigastric pain (principal); R19.4 Change in bowel habit; K31.7 Polyp of stomach and duodenum; K64.0 First degree hemorrhoids; Z94.9 Transplanted organ and tissue status, unspecified
CPT/HCPCS: 43239; 45380; J3010; J7120

== ENCOUNTER 2018-06-07 10:05 | Outpatient (CLI) | payer MEDICARE ==
[2018-06-07 18:34] LABS: ALBUMIN 3.8 g/dL (3.2-5.5); ALBUMIN/GLOBULIN RATIO 1.5 (1.0-2.2); ALKALINE PHOSPHATASE 61 IU/L (42-121); ALT ALANINE AMINOTRANSFERASE 45 IU/L (10-60); AST ASPARTATE AMINOTRANSFERASE 35 IU/L (10-42); BILIRUBIN,TOTAL 0.7 mg/dL (0.2-1.0); BUN - BLOOD UREA NITROGEN 13 mg/dL (6-20); CALCIUM 9.6 mg/dL (8.5-10.3); CARBON DIOXIDE - CO2 24 mmol/L (21-32); CHLORIDE 106 mmol/L (101-111); CHOLESTEROL 101 mg/dL; CREATININE 0.9 mg/dL (0.6-1.2); GFR - MDRD 85 (>89); GLUCOSE 144 mg/dL (70-100); HDL CHOLESTEROL 34 mg/dL; LDL CHOLESTEROL,CALCULATED 40 mg/dL; LDL/HDL RATIO 1.2 (<3.6); SODIUM 137 mmol/L (135-145); TOTAL PROTEIN 6.3 g/dL (6.7-8.2); URIC ACID 4.6 mg/dL (2.6-7.2); VLDL CHOLESTEROL 27 mg/dL
[2018-06-07 18:51] LABS: HB2 TOTAL 15.6 g/dL; HEMOGLOBIN A1C 0.81 g/dL; HEMOGLOBIN A1C % 6.9 % (4.6-6.2)
== END 2018-06-07 10:06 | disposition home or self-care (01) ==
LOC: LAB.F 10:05
PROVIDERS: ATTEND Internal Medicine
DX: E11.9 Type 2 diabetes mellitus without complications (principal); E78.5 Hyperlipidemia, unspecified; M10.9 Gout, unspecified
CPT/HCPCS: 36415; 80053; 80061; 83036; 83721; 84550

== ENCOUNTER 2019-01-15 23:23 | Emergency (ER) | payer MEDICARE ==
--- NOTE | 2019-01-15 23:38 | ED Physician Documentation ---
PD HPI CHEST PAIN - Stated complaint Stated Complaint: CHEST PX TIGHT NO SOA - Chief complaint Chief Complaint: Cardiac - History obtained from History obtained from: Patient - History of Present Illness Timing - onset: Enter time (22:30), Today Timing - onset during: Rest Timing - details: Abrupt onset Pain level now: 3 Quality: Pain Location: Substernal Radiation: Other (midline but radiated across mid/lower chest bilaterally from center) Improved by: Nothing, Other (took Tums without relief) Worsened by: Other (no exacerbating factors) Associated symptoms: No: Shortness of air, Diaphoresis, Nausea, Vomiting, Feeling faint / dizzy, General Weakness, Palpitations, Cough Similar symptoms before: Has not had sx before Recently seen: Not recently seen Review of Systems Constitutional: denies: Fever, Chills, Sweats Cardiac: reports: Chest pain / pressure. denies: Palpitations, Pedal edema, Calf pain Respiratory: reports: Reviewed and negative GI: reports: Reviewed and negative : denies: Dysuria, Frequency Musculoskeletal: denies: Neck pain, Back pain PD PAST MEDICAL HISTORY - Past Medical History Cardiovascular: None, Hypertension Respiratory: None Neuro: None Endocrine/Autoimmune: Type 2 diabetes GI: Pancreatitis HEENT: None Musculoskeletal: Gout Derm: None - Past Surgical History Past Surgical History: Yes General: Cholecystectomy HEENT: Cataracts - Present Medications Home Medications: Ambulatory Orders Medication Instructions Recorded Confirmed Allopurinol 300 mg PO DAILY 10/04/12 01/15/19 Cholecalciferol (Vitamin D3) 1,000 unit PO DAILY 10/04/12 01/15/19 [Vitamin D3] Lisinopril 20 mg PO DAILY 10/04/12 01/15/19 Multivitamin [Multivitamins] 1 each PO DAILY 10/04/12 01/15/19 Omeprazole [PriLOSEC] 20 mg PO QDAC 10/04/12 01/15/19 Insulin NPH Human Isophane 40 unit SQ BID 02/12/13 01/15/19 [Humulin N] Atorvastatin Calcium 20 mg PO QPM 10/23/15 01/15/19 Insulin Regular, Human [Humulin R] 10 - 40 unit SQ QID 10/23/15 01/15/19 Sildenafil Citrate 20 mg PO BID 10/23/15 01/15/19 Magnesium Oxide [Magnesium] 2,000 mg PO DAILY #0 10/28/15 01/15/19 Doxazosin Mesylate 4 mg PO DAILY 05/23/17 01/15/19 Acyclovir 800 mg PO BID 07/13/17 01/15/19 Metoprolol Tartrate [Lopressor] 25 mg PO BID 10/21/17 01/15/19 Dicyclomine HCl 20 mg PO TID 01/30/18 01/15/19 - Allergies Allergies/Adverse Reactions: Allergies Allergy/AdvReac Type Severity Reaction Status Date / Time tamsulosin [From Flomax] Allergy Respiratory Verified 01/15/19 23:35 - Social History Does the pt smoke?: No Smoking Status: Never smoker Does the pt drink ETOH?: No Does the pt have substance abuse?: No - Immunizations Immunizations are current?: Yes - POLST Patient has POLST: No POLST Status: Full Code PD ED PE NORMAL - Vitals Vital signs reviewed: Yes - General General: Alert and oriented X 3, No acute distress, Well developed/nourished - HEENT HEENT: Moist mucous membranes - Neck Neck: Supple, no meningeal sign - Cardiac Cardiac: RRR - Respiratory Respiratory: No respiratory distress, Clear bilaterally - Abdomen Abdomen: Soft, Non tender - Back Back: No CVA TTP - Derm Derm: Normal color, Warm and dry - Extremities Extremities: No edema PD ED PE EXPANDED - Cardiac Cardiac: Murmur Present (2/6 SONNY at base (patient says this is not new)) Results - Vitals Vitals: Vital Signs - 24 hr 01/15/19 01/15/19 01/16/19 23:28 23:53 01:26 Temperature 36.8 C Heart Rate 74 87 Respiratory 16 21 Rate Blood Pressure 142/78 H 139/87 H Blood Pressure 134/77 H [Left] Blood Pressure 126/72 [Right] O2 Saturation 97 97 Oxygen O2 Source Room air - EKG (time done) No standard instances Rate: Rate (enter#) (74) Rhythm: NSR [place]: LAD Intervals: Normal [place] QRS: Normal Ischemia: Normal ST segments - Labs Labs: Laboratory Tests 01/15/19 01/15/19 01/15/19 23:48 23:48 23:48 WBC 6.8 RBC 4.31 L Hgb 13.9 L Hct 41.7 L MCV 96.8 H MCH 32.3 H MCHC 33.3 RDW 15.1 H Plt Count 122 L MPV 10.4 Neut # (Auto) 3.6 Lymph # (Auto) 2.5 [place] # (Auto) 0.5 Eos # (Auto) 0.1 Baso # (Auto) 0.0 Absolute Nucleated RBC 0.00 Nucleated RBC % 0.0 Sodium 139 Potassium 3.5 Chloride 106 Carbon Dioxide 24 Anion Gap 9.0 BUN 13 Creatinine 1.2 Estimated GFR (MDRD) 61 L Glucose 231 H Calcium 9.5 Total Bilirubin 0.9 AST 121 H ALT 102 H Alkaline Phosphatase 96 Troponin I High Sens 7.9 Total Protein 6.6 L Albumin 4.1 Globulin 2.5 Albumin/Globulin Ratio 1.6 Lipase 89 H - Rads (name of study) chest xray Radiology: Prelim report reviewed, See rad report PD MEDICAL DECISION MAKING - ED course Complexity details: reviewed results, re-evaluated patient, considered differential, d/w patient, d/w family Departure - Departure Disposition: 01 Home, Self Care Clinical Impression: Chest pain Condition: Good Instructions: ED Chest Pain Atypical Unkn Cause Follow-Up: Darwin Calvert MD [Primary Care Provider] - Within 3 Days Discharge Date/Time: 01/16/19 01:42
[2019-01-15 23:58] LABS: BASOPHILS % (AUTO) 0.4 %; EOSINOPHILS # (AUTO) 0.1 10^3/uL (0.0-0.7); EOSINOPHILS % (AUTO) 2.1 %; HGB - HEMOGLOBIN 13.9 g/dL (14.0-18.0); LYMPHOCYTES # (AUTO) 2.5 10^3/uL (1.5-3.5); LYMPHOCYTES % (AUTO) 37.3 %; MEAN CORPUSCULAR HEMOGLOBIN 32.3 pg (27.0-31.0); MEAN CORPUSCULAR HGB CONC 33.3 g/dL (32.0-36.0); MEAN CORPUSCULAR VOLUME 96.8 fL (80.0-94.0); MEAN PLATELET VOLUME 10.4 fL (7.4-11.4); MONOCYTES # (AUTO) 0.5 10^3/uL (0.0-1.0); MONOCYTES % (AUTO) 6.8 %; NEUTROPHILS # (AUTO) 3.6 10^3/uL (1.5-6.6); PLT - PLATELET COUNT 122 10^3/uL (130-450); RED BLOOD COUNT 4.31 10^6/uL (4.70-6.10); RED CELL DISTRIBUTION WIDTH 15.1 % (12.0-15.0); WHITE BLOOD COUNT 6.8 x10^3/uL (4.8-10.8)
[2019-01-16 00:08] LABS: ALBUMIN 4.1 g/dL (3.2-5.5); ALBUMIN/GLOBULIN RATIO 1.6 (1.0-2.2); BILIRUBIN,TOTAL 0.9 mg/dL (0.2-1.0); CALCIUM 9.5 mg/dL (8.5-10.3); CREATININE 1.2 mg/dL (0.6-1.2); TOTAL PROTEIN 6.6 g/dL (6.7-8.2)
--- NOTE | 2019-01-16 00:28 | XRAY Report ---
Reason: chest px since 2244, hx of blood clots Procedure Date: 01/15/2019 Accession Number: [id number] / [id number] Procedure: XR - Chest 1 View X-Ray CPT Code: 27550 FULL RESULT: EXAM: CHEST RADIOGRAPHY EXAM DATE: 01/15/2019 11:54 PM. CLINICAL HISTORY: Chest px since 2244, hx of blood clots. COMPARISON: CHEST 2 VIEW 05/11/2017 4:23 PM. TECHNIQUE: 1 view. FINDINGS: Lungs/Pleura: No dense consolidation. No large effusion or pneumothorax. No pulmonary edema. Mediastinum: Heart and mediastinal contours are unremarkable. Other: None. IMPRESSION: No acute radiographic pulmonary abnormalities. RADIA
[2019-01-16] MEDS ORDERED: MAG HYDROX/AL HYDROX/SIMETH 30 ML UDC PO STA (01:03)
[2019-01-16] MEDS ORDERED: LIDOCAINE VISCOUS 2% 15 ML UDC MM STA (01:03)
[2019-01-16 01:27] VITALS: BP 139/87
== END 2019-01-16 01:42 | disposition home or self-care (01) ==
LOC: ED 23:23
DX: R07.9 Chest pain, unspecified (principal); I10 Essential (primary) hypertension; E11.9 Type 2 diabetes mellitus without complications; Z79.4 Long term (current) use of insulin
CPT/HCPCS: 36415; 71045; 80053; 83690; 84484; 85025; 93005; 99284; A9270

== ENCOUNTER 2019-06-06 21:22 | Inpatient (IN) | payer MEDICARE ==
--- NOTE | 2019-06-06 22:25 | ED Physician Documentation ---
History of Present Illness - Stated complaint Stated Complaint: CONSTIPATION - Chief complaint Chief Complaint: Abd Pain - History obtained from History obtained from: Patient (Patient is a 64-year-old male with a history of leukemia and previous cholecystectomy as well as pancreatitis presents tonight with severe abdominal pain and constipation. Reports his last bowel movement was 3 days ago. He is also an insulin-dependent diabetic and reports blood sugars have been in the 3-4 100s. He denies fevers.He denies chest pain or shortness of breath.Patient reports that he did drink milk yesterday and since then is having severe abdominal pain.) Review of Systems Constitutional: reports: Reviewed and negative Eyes: reports: Reviewed and negative Ears: reports: Reviewed and negative Nose: reports: Reviewed and negative Throat: reports: Reviewed and negative Cardiac: reports: Reviewed and negative Respiratory: reports: Reviewed and negative GI: reports: Abdominal Pain, Constipation : reports: Reviewed and negative Skin: reports: Reviewed and negative Musculoskeletal: reports: Reviewed and negative Neurologic: reports: Reviewed and negative Psychiatric: reports: Reviewed and negative Endocrine: reports: Reviewed and negative Immunocompromised: reports: Reviewed and negative PD PAST MEDICAL HISTORY - Past Medical History Cardiovascular: None, Hypertension Respiratory: None Neuro: None Endocrine/Autoimmune: Type 2 diabetes GI: Pancreatitis, Other : Benign prostate hypertrophy, Frequency HEENT: None Psych: None Musculoskeletal: Gout Derm: None Other Past Medical History: Constipation - Past Surgical History Past Surgical History: Yes General: Cholecystectomy HEENT: Cataracts Derm: Skin cancer surgery - Present Medications Home Medications: Ambulatory Orders Medication Instructions Recorded Confirmed Cholecalciferol (Vitamin D3) 1,000 unit PO DAILY 10/04/12 02/26/19 [Vitamin D3] Lisinopril 20 mg PO DAILY 10/04/12 02/26/19 Multivitamin [Multivitamins] 1 each PO DAILY 10/04/12 02/26/19 Omeprazole [PriLOSEC] 20 mg PO QDAC 10/04/12 02/26/19 allopurinoL [Allopurinol] 300 mg PO DAILY 10/04/12 02/26/19 Insulin NPH Human Isophane 40 unit SQ BID 02/12/13 02/26/19 [Humulin N] Atorvastatin Calcium 20 mg PO QPM 10/23/15 02/26/19 Insulin Regular, Human [Humulin R] 10 - 40 unit SQ QID 10/23/15 02/26/19 Sildenafil Citrate 20 mg PO BID 10/23/15 02/26/19 Magnesium Oxide [Magnesium] 2,000 mg PO DAILY #0 10/28/15 02/26/19 Doxazosin Mesylate 4 mg PO DAILY 05/23/17 02/26/19 Metoprolol Tartrate [Lopressor] 25 mg PO BID 10/21/17 02/26/19 Dicyclomine HCl 20 mg PO TID 01/30/18 02/26/19 - Allergies Allergies/Adverse Reactions: Allergies Allergy/AdvReac Type Severity Reaction Status Date / Time Milk Containing Products Allergy Emesis Verified 06/06/19 21:25 tamsulosin [From Flomax] Allergy Respiratory Verified 06/06/19 21:25 - Social History Does the pt smoke?: No Smoking Status: Never smoker Does the pt drink ETOH?: No Does the pt have substance abuse?: No - Immunizations Immunizations are current?: Yes - POLST Patient has POLST: No POLST Status: Full Code PD ED PE NORMAL - Vitals Vital signs reviewed: Yes - General General: Alert and oriented X 3, No acute distress, Well developed/nourished - HEENT HEENT: Atraumatic, PERRL, EOMI, Ears normal, Moist mucous membranes, Pharynx benign, Dentition benign - Neck Neck: Supple, no meningeal sign, No JVD - Cardiac Cardiac: RRR, No murmur, Strong equal pulses - Respiratory Respiratory: No respiratory distress, Clear bilaterally, Other - Abdomen Abdomen: No organomegaly, Other (The abdomen is diffusely tender, distended there is right upper quadrant scar consistent with previous cholecystectomy there is no midline abdominal pulsatile mass patient is voluntarily guarding at this time.) - Derm Derm: Warm and dry - Extremities Extremities: No deformity, No tenderness to palpate, Normal ROM s pain, No edema, No calf tenderness / cord - Neuro Neuro: Alert and oriented X 3, 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 mechanic 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, No sensory deficit, Normal speech - Psych Psych: Normal mood, Normal affect Results - Vitals Vitals: Vital Signs - 24 hr 06/06/19 06/06/19 06/07/19 21:25 22:14 00:00 Temperature 36.5 C Heart Rate 100 93 85 Respiratory 14 20 16 Rate Blood Pressure 165/94 H 132/88 H 164/88 H O2 Saturation 96 99 97 Oxygen O2 Source Room air - EKG (time done) 22:40 Rate: Other (no STEMI) - Labs Labs: Laboratory Tests 06/06/19 06/06/19 06/06/19 22:45 22:45 22:45 WBC 13.2 H RBC 5.48 Hgb 18.0 Hct 51.6 MCV 94.2 H MCH 32.8 H MCHC 34.9 RDW 13.7 Plt Count 152 MPV 10.4 Neut # (Auto) 10.1 H Lymph # (Auto) 2.0 [place] # (Auto) 0.9 Eos # (Auto) 0.0 Baso # (Auto) 0.1 Absolute Nucleated RBC 0.00 Nucleated RBC % 0.0 PT 13.9 H INR 1.2 APTT 27.8 VBG pH VBG pCO2 VBG pO2 VBG HCO3 VBG Total CO2 VBG O2 Saturation VBG Base Excess Sodium 127 L Potassium 4.5 Chloride 92 L Carbon Dioxide 22 Anion Gap 13.0 BUN 21 H Creatinine 1.0 Estimated GFR (MDRD) 75 L Glucose 303 H Lactic Acid Calcium 10.0 Total Bilirubin 1.2 H Direct Bilirubin 0.3 AST 39 ALT 60 Alkaline Phosphatase 86 Total Creatine Kinase 212 Troponin I High Sens B-Natriuretic Peptide Total Protein 8.3 H Albumin 5.0 Globulin 3.3 Lipase 49 Urine Color Urine Clarity Urine pH Ur Specific [place] Urine Protein Urine Glucose (UA) Urine Ketones Urine Occult Blood Urine Nitrite Urine Bilirubin Urine Urobilinogen Ur Leukocyte Esterase Ur Microscopic Review Urine Culture Comments Serum Ketones NEGATIVE 06/06/19 06/06/19 06/06/19 22:45 22:45 22:45 WBC RBC Hgb Hct MCV MCH MCHC RDW Plt Count MPV Neut # (Auto) Lymph # (Auto) [place] # (Auto) Eos # (Auto) Baso # (Auto) Absolute Nucleated RBC Nucleated RBC % PT INR APTT VBG pH VBG pCO2 VBG pO2 VBG HCO3 VBG Total CO2 VBG O2 Saturation VBG Base Excess Sodium Potassium Chloride Carbon Dioxide Anion Gap BUN Creatinine Estimated GFR (MDRD) Glucose Lactic Acid 1.9 Calcium Total Bilirubin Direct Bilirubin AST ALT Alkaline Phosphatase Total Creatine Kinase Troponin I High Sens 17.1 B-Natriuretic Peptide 20 Total Protein Albumin Globulin Lipase Urine Color Urine Clarity Urine pH Ur Specific [place] Urine Protein Urine Glucose (UA) Urine Ketones Urine Occult Blood Urine Nitrite Urine Bilirubin Urine Urobilinogen Ur Leukocyte Esterase Ur Microscopic Review Urine Culture Comments Serum Ketones 06/06/19 06/07/19 22:45 00:40 WBC RBC Hgb Hct MCV MCH MCHC RDW Plt Count MPV Neut # (Auto) Lymph # (Auto) [place] # (Auto) Eos # (Auto) Baso # (Auto) Absolute Nucleated RBC Nucleated RBC % PT INR APTT VBG pH 7.444 H VBG pCO2 34.6 L VBG pO2 36.0 VBG HCO3 23.2 VBG Total CO2 24.2 VBG O2 Saturation 77.5 VBG Base Excess -0.1 Sodium Potassium Chloride Carbon Dioxide Anion Gap BUN Creatinine Estimated GFR (MDRD) Glucose Lactic Acid Calcium Total Bilirubin Direct Bilirubin AST ALT Alkaline Phosphatase Total Creatine Kinase Troponin I High Sens B-Natriuretic Peptide Total Protein Albumin Globulin Lipase Urine Color YELLOW Urine Clarity CLEAR Urine pH 7.0 Ur Specific [place] 1.010 Urine Protein NEGATIVE Urine Glucose (UA) >=1000 H Urine Ketones 40 H Urine Occult Blood TRACE-INTA Urine Nitrite NEGATIVE Urine Bilirubin NEGATIVE Urine Urobilinogen 0.2 (NORMAL) Ur Leukocyte Esterase NEGATIVE Ur Microscopic Review NOT INDICATED Urine Culture Comments NOT INDICATED Serum Ketones PD MEDICAL DECISION MAKING - ED course Complexity details: considered differential (Concerning for bowel obstruction) - Consults Consults: Consulted (name) (dr hall. will admit for observation. ) Departure - Departure Disposition: ED Place in Observation Clinical Impression: Dehydration, Pancreatic lesion, Hyponatremia, Hyperglycemia Abdominal pain Qualifiers: Abdominal location: epigastric Qualified Code(s): R10.13 - Epigastric pain Leukocytosis Qualifiers: Leukocytosis type: other Qualified Code(s): D72.828 - Other elevated white blood cell count Condition: Fair Discharge Date/Time: 06/07/19 02:05
[2019-06-06] MEDS ORDERED: SODIUM CHLORIDE 0.9% 1,000 ML IV ONE (22:35)
[2019-06-06] MEDS ORDERED: IOVERSOL 320 100 ML VIAL IVP ONE (22:51)
[2019-06-06 22:54] LABS: BASOPHILS # (AUTO) 0.1 10^3/uL (0.0-0.1); BASOPHILS % (AUTO) 0.4 %; EOSINOPHILS % (AUTO) 0.2 %; LYMPHOCYTES % (AUTO) 15.3 %; MEAN CORPUSCULAR HEMOGLOBIN 32.8 pg (27.0-31.0); MEAN CORPUSCULAR HGB CONC 34.9 g/dL (32.0-36.0); MEAN CORPUSCULAR VOLUME 94.2 fL (80.0-94.0); MEAN PLATELET VOLUME 10.4 fL (7.4-11.4); MONOCYTES # (AUTO) 0.9 10^3/uL (0.0-1.0); MONOCYTES % (AUTO) 6.9 %; NEUTROPHILS # (AUTO) 10.1 10^3/uL (1.5-6.6); NEUTROPHILS % (AUTO) 76.7 %; PLT - PLATELET COUNT 152 10^3/uL (130-450); RED BLOOD COUNT 5.48 10^6/uL (4.70-6.10); RED CELL DISTRIBUTION WIDTH 13.7 % (12.0-15.0); WHITE BLOOD COUNT 13.2 x10^3/uL (4.8-10.8)
[2019-06-06 22:56] LABS: VBG BASE EXCESS -0.1 mmol/L (-2 - +2); VBG PCO2 34.6 mmHg (41-51); VBG PH 7.444 (7.31-7.41); VBG TOTAL CO2 24.2 mmol/L (24-29)
[2019-06-06] MEDS ORDERED: ONDANSETRON 4 MG/2 ML VIAL IVP STA (23:00)
[2019-06-06] MEDS ORDERED: HYDROmorphone 2 MG/ML VIAL IVP STA (23:00)
[2019-06-06 23:01] LABS: INR 1.2 (0.8-1.2); PT - PROTHROMBIN TIME 13.9 secs (9.9-12.6)
[2019-06-06 23:07] LABS: KETONES, SERUM (ACETEST) NEGATIVE (NEGATIVE)
[2019-06-06 23:08] LABS: PARTIAL THROMBOPLASTIN TIME 27.8 secs (24.9-33.3)
[2019-06-06 23:09] LABS: ALKALINE PHOSPHATASE 86 IU/L (42-121); ALT ALANINE AMINOTRANSFERASE 60 IU/L (10-60); AST ASPARTATE AMINOTRANSFERASE 39 IU/L (10-42); BILIRUBIN,DIRECT 0.3 mg/dL (0.1-0.5); BILIRUBIN,TOTAL 1.2 mg/dL (0.2-1.0); BUN - BLOOD UREA NITROGEN 21 mg/dL (6-20); CARBON DIOXIDE - CO2 22 mmol/L (21-32); CHLORIDE 92 mmol/L (101-111); CK- CREATINE KINASE 212 IU/L (22-269); GFR - MDRD 75 (>89); GLUCOSE 303 mg/dL (70-100); LIPASE 49 U/L (22-51); SODIUM 127 mmol/L (135-145); TOTAL PROTEIN 8.3 g/dL (6.7-8.2)
--- NOTE | 2019-06-06 23:29 | XRAY Report ---
Reason: chest pain Procedure Date: 06/06/2019 Accession Number: [id number] / [id number] Procedure: XR - Chest 1 View X-Ray CPT Code: 70665 Final Report FULL RESULT: EXAM: CHEST RADIOGRAPHY EXAM DATE: 06/06/2019 10:52 PM. CLINICAL HISTORY: Chest pain. COMPARISON: CHEST 1 VIEW 01/15/2019 11:39 PM CHEST 2 VIEW 05/11/2017 4:23 PM CHEST 2 VIEW PA/LAT 10/22/2015 5:54 PM 08/11/2015 5:04 PM. TECHNIQUE: 1 view. FINDINGS: Lungs/Pleura: No significant consolidation, effusion, or definite pneumothorax. Mediastinum: Cardiac silhouette is within normal limits when accounting for lung volumes and technique. Other: Moderate left globe degenerative change. IMPRESSION: Stable appearance of the chest without acute cardiopulmonary abnormality. RADIA
[2019-06-06] MEDS: IOVERSOL 320 100 ML VIAL IVP ONE (23:36)
--- NOTE | 2019-06-07 00:30 | CT Report ---
Reason: abd pain Procedure Date: 06/06/2019 Accession Number: [id number] / [id number] Procedure: CT - Abdomen/Pelvis W CPT Code: Final Report FULL RESULT: EXAM: CT ABDOMEN AND PELVIS EXAM DATE:06/06/2019 11:37 PM CLINICAL HISTORY: Abd pain. Abdominal pain for 4 days with constipation. History of leukemia and cholecystectomy. COMPARISONS: CHEST ANGIO 01/25/2017 8:12 AM ABDOMEN/PELVIS W/ 01/25/2017 6:55 AM. TECHNIQUE: Routine helical CT imaging was performed through the abdomen and pelvis with 100 mL OPTIRAY 320 IV contrast. Oral contrast: No. Reconstructions: Coronal and sagittal. In accordance with CT protocol optimization, one or more of the following dose reduction techniques were utilized for this exam: automated exposure control, adjustment of mA and/or KV based on patient size, or use of iterative reconstruction technique. FINDINGS: Lung Bases: Clear lung bases. No pleural effusion. Liver: The liver is diffusely decreased in density and globally enlarged with the longitudinal dimension of the right lobe measuring 21.1 cm. Gallbladder/Bile Ducts: Status post cholecystectomy. No bile duct dilatation. Spleen: Unremarkable. Pancreas: 2.7 x 2.6 x 2.5 cm intermediate density lesion at the head of the pancreas. The body and tail are atrophic with mild diffuse dilation of the dorsal duct. Adrenal Glands: Unremarkable. Kidneys: Unremarkable. No hydronephrosis. Peritoneal Cavity/Bowel: The bowel is normal in caliber and contour. No free fluid, free air or lymphadenopathy. The appendix is not visualized; however, no inflammatory changes at the base of the cecum. Pelvic Organs: Unremarkable. The bladder and visualized pelvic organs appear normal. Vasculature: Severe coronary artery and severe aortic atherosclerotic calcifications. Calcified aortic valve. Bones: Unremarkable. Other: Fat stranding along the inferior anterior abdominal wall.. IMPRESSION: 2.7 cm lesion at the head of the pancreas. The body and tail of pancreas are atrophic with mild dilatation of the dorsal duct. A dedicated pancreatic CT or MRI is recommended for further characterization. Severe coronary artery and severe aortic atherosclerotic calcifications. Calcified aortic valve. Hepatomegaly. Diffusely decreased density of the liver may reflect hepatic steatosis. Status post cholecystectomy. RADIA
[2019-06-07] MEDS ORDERED: HYDROmorphone 2 MG/ML VIAL IVP STA (00:46)
[2019-06-07 00:50] LABS: BILIRUBIN,URINE NEGATIVE (NEGATIVE); GLUCOSE, URINE (UA) >=1000 mg/dL (NEGATIVE); KETONES,URINE (UA) 40 mg/dL (NEGATIVE); LEUKOCYTE ESTERASE, URINE NEGATIVE (NEGATIVE); NITRITE,URINE NEGATIVE (NEGATIVE); OCCULT BLOOD,URINE TRACE-INTA (NEGATIVE); PROTEIN,URINE NEGATIVE (NEGATIVE); UROBILINOGEN,URINE 0.2 (NORMAL) E.U./dL (NORMAL)
[2019-06-07 00:54] LABS: CLARITY,URINE CLEAR (CLEAR)
[2019-06-07] MEDS ORDERED: ONDANSETRON 4 MG/2 ML VIAL IVP PRN (01:06)
[2019-06-07] MEDS ORDERED: ACETAMINOPHEN 325 MG TABLET PO PRN (01:06)
[2019-06-07] MEDS ORDERED: SODIUM CHLORIDE FLUSH 0.9% 10 ML SYRINGE IVP PRN (01:06)
--- NOTE | 2019-06-07 01:35 | HISTORY & PHYSICAL EXAMINATION ---
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 He states the constipation began this past Tuesday and he has not had a bowel movement since then. He normally goes on a regular basis. He has had associated abdominal pain that is 20 out of 10 and located in the epigastric and right upper quadrant. The pain is nonradiating. It is now 3 out of 10 after receiving hydromorphone IV in the emergency department. He states is a history of recurrent pancreatitis in the past and he states that now his pancreas is atrophied and that is why he is a diabetic. He states he has had similar symptoms in the past and normally last 5 to 6 days and occur 2-3 times a year. His states that normally he takes oxycodone for his 5 to 6 days and his pain resolves but he does not have pain medications at home and the Tylenol he was taking was not controlling it. He did drink some lactose-free milk this past Tuesday which she feels may have triggered this episode. He states he had quit drinking milk as per recommendation of the ux visual designer and that this improved his symptoms. He states he has had decreased oral intake secondary to the abdominal pain. He states he feels thirsty and dehydrated. His blood sugars have also been elevated in the 300s at home over the past few days despite taking his usual dose of insulin. He reports no fevers, chills, chest pain, dyspnea. He states he does not drink alcohol or smoke. He had a cholecystectomy in the past. He has not had a CT of the abdomen pelvis in a few years. He does not recall ever being told he had a pancreatic cyst or mass. In the emergency department, he is found to be afebrile with temperature of 36.5 C. He was tachycardic with a heart of 100. Hypertensive the blood pressure of 165/94. He was not tachypneic and saturating well on room air. Labs revealed an elevated white count of 13.2, hemoglobin of 18, platelets of 152. Sodium is decreased at 127. His glucose is elevated at 303. He has a normal anion gap and bicarbonate. Total bilirubin was mildly elevated at 1.2. Normal LFTs. CT of the abdomen and pelvis revealed a 2.7 cm lesion of the head of the pancreas. The body and tail appear atrophic. Pancreatic CT or MRI is recommended by radiology Given his abdominal pain, dehydration, and lesion of the head of the pancreas, he will be observed overnight for IV hydration and MRI of the abdomen and pelvis. I did discuss goals of care with the patient and he would like to be a full code. History - Past Medical History Cardiovascular: reports: None, Hypertension Respiratory: reports: None Neuro: reports: None Endocrine/Autoimmune: reports: Type 2 diabetes GI: reports: Pancreatitis, Other : reports: Benign prostate hypertrophy, Frequency HEENT: reports: None Psych: reports: None Musculoskeletal: reports: Gout Derm: reports: None MRSA Hx?: No Other Past Medical History: Constipation, CML Status post allogenic stem cell transplant in 2011 - Past Surgical History General: reports: Cholecystectomy HEENT: reports: Cataracts Derm: reports: Skin cancer surgery - Family & Social History Family History Comment/Other: Reports his mother had diabetes and a cardiac problem that he cannot recall. He does not recall any other family history Living arrangement: At home Living Situation: With spouse/s.o. Social History Notes: He lives at home with his . He denies drinking alcohol or smoking. - Substance History Use: Uses substance without health or social issues: NONE - POLST Patient has POLST: No POLST Status: Full Code Meds/Allgy - Home Medications Home Medications: Ambulatory Orders Medication Instructions Recorded Confirmed Cholecalciferol (Vitamin D3) 1,000 unit PO DAILY 10/04/12 02/26/19 [Vitamin D3] Lisinopril 20 mg PO DAILY 10/04/12 02/26/19 Multivitamin [Multivitamins] 1 each PO DAILY 10/04/12 02/26/19 Omeprazole [PriLOSEC] 20 mg PO QDAC 10/04/12 02/26/19 allopurinoL [Allopurinol] 300 mg PO DAILY 10/04/12 02/26/19 Insulin NPH Human Isophane 40 unit SQ BID 02/12/13 02/26/19 [Humulin N] Atorvastatin Calcium 20 mg PO QPM 10/23/15 02/26/19 Insulin Regular, Human [Humulin R] 10 - 40 unit SQ QID 10/23/15 02/26/19 Sildenafil Citrate 20 mg PO BID 10/23/15 02/26/19 Magnesium Oxide [Magnesium] 2,000 mg PO DAILY #0 10/28/15 02/26/19 Doxazosin Mesylate 4 mg PO DAILY 05/23/17 02/26/19 Metoprolol Tartrate [Lopressor] 25 mg PO BID 10/21/17 02/26/19 Dicyclomine HCl 20 mg PO TID 01/30/18 02/26/19 - Allergies Allergies/Adverse Reactions: Allergies Allergy/AdvReac Type Severity Reaction Status Date / Time Milk Containing Products Allergy Emesis Verified 06/06/19 21:25 tamsulosin [From Flomax] Allergy Respiratory Verified 06/06/19 21:25 Review of Systems - Constitutional Constitutional: reports: Poor appetite. denies: Fatigue, Fever, Chills - Cardiovascular Cariovascular: denies: Chest pain, Exertional dyspnea, Decr. exercise tolerance - Respiratory Respiratory: denies: Cough, SOB at rest, SOB with exertion - Gastrointestinal Gastrointestinal: reports: Abdominal pain, Constipation, Nausea, Vomiting, Poor appetite. denies: Diarrhea, Black stools, Bloody stools - Genitourinary Genitourinary: denies: Dysuria, Frequency, Urgency, Hematuria - Musculoskeletal Musculoskeletal: denies: Muscle pain, Muscle weakness - Integumentary Integumentary: denies: Rash - Neurological Neurological: reports: Numbness. denies: General weakness, Focal weakness - All Other Systems All Other Systems: reports: Reviewed and negative Prior Level of Functionality: He is independent with his ADLs. Exam - Vital Signs Vital Signs: Vital Signs x48h Temp Pulse Resp BP Pulse Ox 06/07/19 00:00 85 16 164/88 H 97 06/06/19 22:14 93 20 132/88 H 99 06/06/19 21:25 36.5 C 100 14 165/94 H 96 - Physical Exam General Appearance: positive: Alert, Mild distress Eyes Bilateral: positive: Normal inspection, Conjunctivae nml, No scleral icterus ENT: positive: ENT inspection nml, Dry mucous membranes. negative: No signs of dehydration Neck: positive: Nml inspection Respiratory: positive: No respiratory distress. negative: Wheezes, Rales, Rhonchi Cardiovascular: positive: No murmur, Tachycardia. negative: Regular rate & rhythm, Bradycardia, Systolic murmur, Diastolic murmur Abdomen: positive: Nml bowel sounds, Tenderness (Mild tenderness in the epigastric region. He did receive Dilaudid prior to my exam.). negative: No distention, Guarding, Rebound Skin: positive: No rash, Warm, Dry Extremities: positive: Full ROM, No pedal edema Neurologic/Psychiatric: positive: Oriented x3. negative: Disoriented to person, Disoriented to place, Disoriented to time Conclusion/Plan - Problem List (1) Abdominal pain Conclusion/Plan: This does not appear to be pancreatitis given normal lipase and no inflammation on the CT of the abdomen and pelvis. It is unclear if this pancreatic lesion is a source of his pain although suspect this is likely a cyst given his history of pancreatitis. Suspect that him drinking milk triggered this recurrent episode of pain which she has had in the past. He does appear clinically dehydrated g iven his hemoconcentration and tachycardia. He appears hypovolemic on exam. He is also had poor oral intake at home due to nausea and vomiting. We will observe him overnight for IV hydration with normal saline. We will give 1 extra liter bolus and start him on maintenance at 100 mL an hour. We will obtain an MRI of the abdomen and pelvis for further evaluation of this pancreatic lesion. He is n.p.o. for the imaging study. We will treat his pain with morphine IV and Hydrocodone. Zofran IV for his nausea. Once his MRI is completed, we will start him on a clear liquid diet and advance as tolerated. We will hope to discharge him later this afternoon on oral hydrocodone with outpatient follow- up. Qualifiers: Abdominal location: epigastric Qualified Code(s): R10.13 - Epigastric pain (2) Pancreatic lesion Conclusion/Plan: There is a 2.7 cm lesion at the head of the pancreas which is new compared to prior imaging. Suspect this is likely a cyst given his history of pancreatitis but given his abdominal pain, radiology did recommend a pancreatic CT or MRI for further evaluation. We will obtain this today. (3) Dehydration Conclusion/Plan: He appears hypervolemic on exam and he has hemoconcentration as evident by his elevated white count, hemoglobin of 18, and elevated platelets compared to baseline. He received 1 L of saline in the emergency department and we will administer 1 more liter of saline and start him on maintenance IV fluids. 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 Blood glucose have been poorly controlled at home running in the 300s. He is on insulin NPH and Humulin R with meals. His blood glucose is currently elevated at 330 but there appears to be no signs of DKA. He does appear hypervolemic on exam. We will hydrate him with IV saline. We will give him 10 units of IV insulin now and resume his home regimen of NPH 50 units twice daily and Humulin R 30 units with meals. We will check an A1c. He is n.p.o. for an MRI. (5) CML (chronic myeloid leukemia) in relapse Conclusion/Plan: He is status post allogenic stem cell transplant in 2011. Currently in remission. He follows with Dr. Rios. (6) GERD (gastroesophageal reflux disease) Conclusion/Plan: He has a history of GERD for which he takes omeprazole. We will place him on Protonix while he is hospitalized. (7) HTN (hypertension) Conclusion/Plan: He is hypertensive at the moment with systolic in the 160s. This may be exacerbated by his abdominal pain. We will resume his home Lopressor and lisinopril. - Lab Results Lab results reviewed: Yes [place] Bones: 06/06/19 22:45 06/06/19 22:45 - Diagnostic Imaging Results Diagnostic Imaging Results: positive: Final report reviewed Core Measures - Anticipated LOS I expect patient to be DC'd or transferred within 96 hours.: Yes - Issues Hospital Issues and Management Plan: 84-year-old male presents with abdominal pain, nausea, vomiting and poor oral intake. Found to be dehydrated and tachycardic. CT concerning for a pancreatic lesion. Will observe overnight for MRI of the abdomen. Hydrate with IV fluids and pain control with IV morphine and oral hydrocodone. - DVT/VTE - Prophylaxis VTE/DVT Device ordered at admit?: Yes VTE/DVT Prophylaxis med ordered at admit?: Yes
[2019-06-07] MEDS ORDERED: INSULIN REGULAR HUMAN 300 UNIT/3 ML VIAL IVP ONE (01:40)
[2019-06-07] MEDS ORDERED: SODIUM CHLORIDE 0.9% 1,000 ML IV ONE (01:40)
[2019-06-07] MEDS: MORPHINE 2 MG/ML CARPUJECT IVP PRN ×7 (02:27→23:25)
[2019-06-07] MEDS: SODIUM CHLORIDE 0.9% 1,000 ML IV SCH ×3 (03:31→23:28)
[2019-06-07 05:23] LABS: BASOPHILS # (AUTO) 0.1 10^3/uL (0.0-0.1); BASOPHILS % (AUTO) 0.4 %; EOSINOPHILS % (AUTO) 0.2 %; HGB - HEMOGLOBIN 16.1 g/dL (14.0-18.0); LYMPHOCYTES # (AUTO) 3.1 10^3/uL (1.5-3.5); LYMPHOCYTES % (AUTO) 23.1 %; MEAN CORPUSCULAR HEMOGLOBIN 31.7 pg (27.0-31.0); MEAN CORPUSCULAR HGB CONC 33.2 g/dL (32.0-36.0); MEAN CORPUSCULAR VOLUME 95.5 fL (80.0-94.0); MEAN PLATELET VOLUME 10.7 fL (7.4-11.4); MONOCYTES # (AUTO) 0.9 10^3/uL (0.0-1.0); MONOCYTES % (AUTO) 7.1 %; NEUTROPHILS # (AUTO) 9.1 10^3/uL (1.5-6.6); NEUTROPHILS % (AUTO) 68.7 %; PLT - PLATELET COUNT 140 10^3/uL (130-450); RED BLOOD COUNT 5.08 10^6/uL (4.70-6.10); RED CELL DISTRIBUTION WIDTH 13.8 % (12.0-15.0); WHITE BLOOD COUNT 13.3 x10^3/uL (4.8-10.8)
[2019-06-07 05:33] LABS: CALCIUM 8.8 mg/dL (8.5-10.3); CREATININE 0.7 mg/dL (0.6-1.2); MAGNESIUM 2.4 mg/dL (1.7-2.8)
[2019-06-07 05:38] LABS: HB2 TOTAL 16.3 g/dL; HEMOGLOBIN A1C 0.97 g/dL; HEMOGLOBIN A1C % 7.6 % (4.6-6.2)
[2019-06-07] MEDS: HYDROcod/ACETAM 5/325 MG TABLET PO PRN ×4 (06:40→20:16)
[2019-06-07] MEDS: PANTOPRAZOLE 40 MG TABLET PO SCH (06:41)
[2019-06-07] MEDS: INSULIN NPH HUMAN 300 UNIT/3 ML VIAL SUBQ SCH ×2 (09:53→21:01)
[2019-06-07] MEDS: HEPARIN 5,000 UNIT/ML VIAL SUBQ SCH ×2 (09:54→21:01)
[2019-06-07] MEDS: METOPROLOL TARTRATE 25 MG TABLET PO SCH ×2 (09:54→21:06)
[2019-06-07] MEDS: lisinopriL 20 MG TABLET PO SCH (09:55)
[2019-06-07] MEDS: SODIUM CHLORIDE FLUSH 0.9% 10 ML SYRINGE IVP SCH ×2 (09:55→16:19)
[2019-06-07] MEDS ORDERED: BISACODYL 10 MG SUPP PR ONE (11:05)
--- NOTE | 2019-06-07 11:18 | PHARMACY PROGRESS NOTE ---
- Best Possible Medication History Admit Date and Time: 06/07/19 0106 Processed by: Pharmacy Medication History completed: Yes Patient Interview: Completed Secondary Source(s): Physician records, Pharmacy records, Insurance records As the person ultimately responsible for medication therapy, providers are able to order a medication from an existing home medication list in [facility] via the "Reconcile Routine" prior to Confirmation of that medication by underwriting support specialist. Such practice is discouraged except when the physician, in their clinical judgment, deems that a medical need exists for a medication without regard to previous use.
[2019-06-07] MEDS ORDERED: IOVERSOL 320 100 ML VIAL IVP ONE (13:05)
--- NOTE | 2019-06-07 15:13 | CT Report ---
Reason: EVAL PANCREATIC MASS Procedure Date: 06/07/2019 Accession Number: [id number] / [id number] Procedure: CT - ABDOMEN W/WO CPT Code: Final Report FULL RESULT: EXAM: CT ABDOMEN WITHOUT AND WITH CONTRAST EXAM DATE: 06/07/2019 02:25 PM. HISTORY: EVAL PANCREATIC MASS. COMPARISON: ABDOMEN/PELVIS W/ 06/06/2019 11:24 PM ABDOMEN/PELVIS W/ 03/01/2016 6:04 AM. TECHNIQUE: Routine helical CT imaging was performed through the abdomen before and after administration of IV contrast: 100 cc Optiray 320 IV. Enteric contrast: No. Reconstruction: Coronal and sagittal. In accordance with CT protocol optimization, one or more of the following dose reduction techniques were utilized for this exam: automated exposure control, adjustment of mA and/or KV based on patient size, or use of iterative reconstructive technique. FINDINGS: Lung Bases: 3 mm subpleural left lower lobe nodule unchanged. No consolidation or pleural effusion. Liver: The liver parenchyma is low in density. The liver is enlarged and measures 203 mm craniocaudal. Liver vessels are patent. No intrahepatic biliary dilatation. Gallbladder/Bile Ducts: The gallbladder is surgically absent. The common bile duct is not well defined secondary to mariluz-portal fat stranding. Spleen: Normal. Pancreas: There multiple small punctate calcifications within the pancreatic head. There is heterogeneous enhancement of the pancreas. There is fat stranding and phlegmon around the pancreatic head and body. The pancreatic tail is atrophic. The pancreatic duct in the body of the pancreas measures 4 mm in diameter. The splenic artery and splenic vein are patent. There is absence of a discrete measurable pancreatic mass. Adrenal Glands: Normal. Kidneys: Normal. No masses or hydronephrosis. Peritoneal Cavity/Bowel: The bowel is normal in caliber. No free fluid or free air. No obstruction. There is moderate calcification of the abdominal aorta. The mesenteric arteries are patent without evidence of significant stenosis. Vasculature: No aneurysms or other significant abnormality. Bones: No significant abnormality. Other: None. IMPRESSION: 1. Edema in the pancreatic head and body with punctate pancreatic head calcifications and peripancreatic phlegmon and inflammation. Most consistent with acute pancreatitis. A discrete pancreatic mass is not seen by CT, however in the setting of pancreatic edema, a small iso-enhancing neoplasm is more difficult to exclude. 2. Steatosis of the liver. RADIA
[2019-06-07] MEDS: IOVERSOL 320 100 ML VIAL IVP ONE (15:55)
[2019-06-07] MEDS: INSULIN ASPART 300 UNIT/3 ML PEN SUBQ SCH ×2 (18:14→21:02)
--- NOTE | 2019-06-07 18:21 | PROVIDER PROGRESS NOTE ---
Hospitalist Cross-cover Note - Cross-Cover Note Cross-Cover Note: There is no MRI available here for 7 days. The radiology reader of CT recommended either an MRI abdomen or a pancreatic CT. A CT with and without contrast was therefore ordered, with "pancreatic protocol" as advised by Dr Rian. The pancreatic CT was read as the area having acute pancreatitis. There is no bowel obstruction. I met the patient and discussed the findings with him and his at bedside. He just started his first po clear liquids for dinner and the abdominal pain worsened. He got Morphine. He also c/o constipation with no BM since 06/03/19, and no effect after a suppository today. Since there is no obstruction, he felt hopeful and requested an enema in the morning. Imp: Acute pancreatitis DM secondary to pancreatic insufficiency Constipation Dehydration HTN Plan: Admit to full Inpatient status for management of pancreatitis with bowel rest, iv narcotics, iv fluids. In the past his attacks of acute pancreatitis have lasted 5-6 days. DM management Enema and escalate bowel protocol for constipation.
[2019-06-07] MEDS ORDERED: SENNA 8.6 MG TABLET PO SCH (21:00)
[2019-06-07] MEDS ORDERED: DOCUSATE SODIUM 250 MG CAPSULE PO SCH (21:00)
[2019-06-08] MEDS: SODIUM CHLORIDE FLUSH 0.9% 10 ML SYRINGE IVP SCH ×3 (00:07→17:16)
[2019-06-08] MEDS: HYDROcod/ACETAM 5/325 MG TABLET PO PRN ×7 (00:14→23:55)
[2019-06-08] MEDS: MORPHINE 2 MG/ML CARPUJECT IVP PRN ×8 (04:02→23:55)
[2019-06-08] MEDS: PANTOPRAZOLE 40 MG TABLET PO SCH (06:22)
[2019-06-08] MEDS: SODIUM CHLORIDE 0.9% 1,000 ML IV SCH ×2 (08:08→17:45)
[2019-06-08] MEDS: INSULIN ASPART 300 UNIT/3 ML PEN SUBQ SCH ×4 (08:09→21:02)
[2019-06-08] MEDS: HEPARIN 5,000 UNIT/ML VIAL SUBQ SCH ×2 (08:55→21:01)
[2019-06-08] MEDS: INSULIN NPH HUMAN 300 UNIT/3 ML VIAL SUBQ SCH ×2 (08:56→21:01)
[2019-06-08] MEDS ORDERED: SENNA 8.6 MG TABLET PO SCH (09:00)
[2019-06-08] MEDS ORDERED: polyethylene glycoL 3350 17 GM PACKET PO SCH (09:00)
[2019-06-08] MEDS: METOPROLOL TARTRATE 25 MG TABLET PO SCH ×2 (09:01→21:03)
[2019-06-08] MEDS: lisinopriL 20 MG TABLET PO SCH (09:02)
--- NOTE | 2019-06-08 10:58 | PROVIDER PROGRESS NOTE ---
Assessment/Plan - Problem List (1) Acute pancreatitis Qualifiers: Pancreatitis type: unspecified pancreatitis type Acute pancreatitis complication: unspecified Qualified Code(s): K85.90 - Acute pancreatitis without necrosis or infection, unspecified Assessment/Plan: The patient and are both able to give me a complete history of how he developed pancreatitis in his lifetime: He suffered with intermittent epigastric pain and constipation for 5 days which would relent, when he went to his doctor everything was normal. Finally during 1 of these episodes he was lightheaded and weak, was seen in a PCP clinic that very day, was hypotensive, sent to the ER, transferred to [facility] where he was diagnosed with pancreatitis and required 11 days of hospitalization. After that one, he has had about 6 at tacks of acute pancreatitis. Over that time, he has come to know that his attacks of pancreatitis include epigastric pain with constipation for about 6 days. He is currently on his fifth day of constipation. Continue with peripheral IV hydration. Continue with only clear liquids. Continue with PRN pain meds. (2) Pancreatic lesion Assessment/Plan: This lesion was initially considered a homogeneous mass but on repeat "pancreatic protocol" CT scan, the findings are complex and consistent with acute pancreatitis. (3) Constipation Assessment/Plan: As above in #1. The dehydration also adds to this. Yesterday a rectal suppository was tried with no effect. Today a soap suds enema was tried with no effect, and the nurse could not disimpact thim either. I asked the patient what he wishes to try and we agreed upon daily enemas. His course usually requires just waiting out resolution of the pancreatitis which is when the BMs began, according to the patient and . He says one of his home meds is for this problem: will start Dicyclomine. (4) Dehydration Assessment/Plan: Less dry mucosa than yesterday. Continue iv fluids while he takes minimal clear liquids po (5) Hyponatremia Assessment/Plan: Hypovolemic hyponatremia, related to low salt intake, most likely. 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 The patient and describe his diabetic complications: diabetic retinopathy requiring laser treatments, peripheral neuropathy for which she takes pain m edications. He is legally blind in the left eye. Clear liquid diet continues. Continue with POC glucose checks and insulin coverage if needed. (7) CML (chronic myeloid leukemia) in relapse Assessment/Plan: Stable - Current Meds Current Meds: Current Medications Generic Name Dose Route Start Last Admin Trade Name Freq PRN Reason Stop Dose Admin Hydrocodone Bitart/Acetaminophen 1 tab 06/07/19 01:52 06/08/19 08:02 [place] 5/325 PO 1 tab Q4HR PRN Administration PAIN Heparin Sodium (Porcine) 5,000 unit 06/07/19 09:00 06/08/19 08:55 SUBQ 5,000 unit BID CARMELO Administration Sodium Chloride 1,000 mls @ 100 mls/hr 06/07/19 02:00 06/08/19 08:08 Normal Saline 0.9% IV 100 mls/hr .Q10H CARMELO Administration Insulin Aspart 1 - 5 unit 06/07/19 17:30 06/08/19 08:09 Novolog SUBQ 2 unit 0800,1200,1700,2100 CARMELO Administration Protocol Insulin Human NPH 50 unit 06/07/19 09:00 06/08/19 08:56 Humulin N SUBQ 50 unit BID CARMELO Administration Lisinopril 20 mg 06/07/19 09:00 06/08/19 09:02 Zestril PO 20 mg DAILY CARMELO Administration Metoprolol Tartrate 25 mg 06/07/19 09:00 06/08/19 09:01 Lopressor PO 25 mg BID CARMELO Administration Morphine Sulfate 2 mg 06/07/19 01:06 06/08/19 08:08 Morphine (Carpuject) IVP 2 mg Q2HR PRN Administration Pain 8 to 10 Pantoprazole Sodium 40 mg 06/07/19 07:00 06/08/19 06:22 Protonix PO 40 mg QDAC CARMELO Administration Sodium Chloride 10 ml 06/07/19 01:06 06/07/19 02:25 Normal Saline Flush 0.9% IVP 10 ml PRN PRN Administration NEEDED PER PROVIDER ORDERS Sodium Chloride 10 ml 06/07/19 09:00 06/08/19 09:02 Normal Saline Flush 0.9% IVP Not Given 0100,0900,1700 CARMELO - Lab Result Fish Bone Diagrams: 06/07/19 04:25 06/07/19 04:25 - Additional Planning My Orders: My Active Orders 06/07/19 17:15 Blood Glucose Checks - Eating [RC] 0800,1200,1700,2100 Initiate Hypoglycemia Protocol [RC] .protocol 06/07/19 17:30 Insulin Aspart [NovoLOG] 1 - 5 unit SUBQ 0800,1200,1700,2100 06/07/19 Dinner Clear Liquid Diet [DIET] 06/08/19 08:08 Miscellaenous Nursing Order [RC] ONCE 06/08/19 10:55 Miscellaenous Nursing Order [RC] ONCE 06/08/19 10:56 Enema [RC] .ONCE Subjective - Subjective Patient Reports: Other (Same epigastric pain mild and severe bilateral lower quadrant pain, no BM in 5 days) Objective Vital Signs: Vital Signs - 24 hr 06/07/19 06/07/19 06/07/19 13:16 15:59 21:06 Temperature 36.5 C 36.8 C Heart Rate [ 86 105 H Brachial] Respiratory 20 20 Rate Blood Pressure 138/76 H Blood Pressure 124/60 127/73 [Left Brachial artery] O2 Saturation 96 97 06/07/19 06/08/19 06/08/19 23:22 05:00 09:00 Temperature 36.7 C 36.4 C L 36.5 C Heart Rate [ 81 88 100 Brachial] Respiratory 18 18 16 Rate Blood Pressure Blood Pressure 150/74 H 146/87 H 117/69 [Left Brachial artery] O2 Saturation 95 96 96 06/08/19 09:01 Temperature Heart Rate [ Brachial] Respiratory Rate Blood Pressure 117/69 Blood Pressure [Left Brachial artery] O2 Saturation Oxygen O2 Source Room air I&O (Last 24 Hrs): Intake and Output Totals x24h 06/06/19 06/07/19 06/08/19 23:59 23:59 23:59 Intake Total 1000 2905 1466.667 Output Total 2225 1100 Balance 1000 680 366.667 General: Alert, Oriented x3 HEENT: Atraumatic, Other (L eye squinting and is legally blind) Neck: Supple, No JVD Neuro: Alert, Non Focal Cardiovascular: Regular rate, No murmurs Respiratory: No respiratory distress Abdomen: Soft, Other (Not distended) Extremities: No edema, Other (tender feet) - Results Results: Laboratory Results WBC 13.3 x10^3/uL (4.8-10.8) H 06/07/19 04:25 RBC 5.08 10^6/uL (4.70-6.10) 06/07/19 04:25 Hgb 16.1 g/dL (14.0-18.0) 06/07/19 04:25 Hct 48.5 % (42.0-52.0) 06/07/19 04:25 MCV 95.5 fL (80.0-94.0) H 06/07/19 04:25 MCH 31.7 pg (27.0-31.0) H 06/07/19 04:25 MCHC 33.2 g/dL (32.0-36.0) 06/07/19 04:25 RDW 13.8 % (12.0-15.0) 06/07/19 04:25 Plt Count 140 10^3/uL (130-450) 06/07/19 04:25 MPV 10.7 fL (7.4-11.4) 06/07/19 04:25 Neut # (Auto) 9.1 10^3/uL (1.5-6.6) H 06/07/19 04:25 Lymph # (Auto) 3.1 10^3/uL (1.5-3.5) 06/07/19 04:25 [place] # (Auto) 0.9 10^3/uL (0.0-1.0) 06/07/19 04:25 Eos # (Auto) 0.0 10^3/uL (0.0-0.7) 06/07/19 04:25 Baso # (Auto) 0.1 10^3/uL (0.0-0.1) 06/07/19 04:25 Absolute Nucleated RBC 0.00 x10^3/uL 06/07/19 04:25 Nucleated RBC % 0.0 /100WBC 06/07/19 04:25 PT 13.9 secs (9.9-12.6) H 06/06/19 22:45 INR 1.2 (0.8-1.2) 06/06/19 22:45 APTT 27.8 secs (24.9-33.3) 06/06/19 22:45 VBG pH 7.444 (7.31-7.41) H 06/06/19 22:45 VBG pCO2 34.6 mmHg (41-51) L 06/06/19 22:45 VBG pO2 36.0 mmHg (25-47) 06/06/19 22:45 VBG HCO3 23.2 mmol/L (23-28) 06/06/19 22:45 VBG Total CO2 24.2 mmol/L (24-29) 06/06/19 22:45 VBG O2 Saturation 77.5 % (60-80) 06/06/19 22:45 VBG Base Excess -0.1 mmol/L (-2 - +2) 06/06/19 22:45 Sodium 132 mmol/L (135-145) L 06/07/19 04:25 Potassium 4.0 mmol/L (3.5-5.0) 06/07/19 04:25 Chloride 102 mmol/L (101-111) 06/07/19 04:25 Carbon Dioxide 23 mmol/L (21-32) 06/07/19 04:25 Anion Gap 7.0 (6-13) 06/07/19 04:25 BUN 19 mg/dL (6-20) 06/07/19 04:25 Creatinine 0.7 mg/dL (0.6-1.2) 06/07/19 04:25 Estimated GFR (MDRD) 113 (>89) 06/07/19 04:25 Glucose 217 mg/dL (70-100) H 06/07/19 04:25 POC Whole Bld Glucose 182 mg/dL (70 - 100) H 06/08/19 07:48 Glycated Hemoglobin 7.6 % (4.6-6.2) H 06/07/19 04:25 Estim Average Glucose 171 (70-100) H 06/07/19 04:25 Lactic Acid 1.9 mmol/L (0.5-2.2) 06/06/19 22:45 Calcium 8.8 mg/dL (8.5-10.3) 06/07/19 04:25 Phosphorus 2.0 mg/dL (2.5-4.6) L 06/07/19 04:25 Magnesium 2.4 mg/dL (1.7-2.8) 06/07/19 04:25 Total Bilirubin 1.2 mg/dL (0.2-1.0) H 06/06/19 22:45 Direct Bilirubin 0.3 mg/dL (0.1-0.5) 06/06/19 22:45 AST 39 IU/L (10-42) 06/06/19 22:45 ALT 60 IU/L (10-60) 06/06/19 22:45 Alkaline Phosphatase 86 IU/L (42-121) 06/06/19 22:45 Total Creatine Kinase 212 IU/L (22-269) 06/06/19 22:45 Troponin I High Sens 17.1 ng/L (2.3-19.7) 06/06/19 22:45 B-Natriuretic Peptide 20 pg/mL (5-100) 06/06/19 22:45 Total Protein 8.3 g/dL (6.7-8.2) H 06/06/19 22:45 Albumin 5.0 g/dL (3.2-5.5) 06/06/19 22:45 Globulin 3.3 g/dL (2.1-4.2) 06/06/19 22:45 Lipase 49 U/L (22-51) 06/06/19 22:45 Urine Color YELLOW 06/07/19 00:40 Urine Clarity CLEAR (CLEAR) 06/07/19 00:40 Urine pH 7.0 PH (5.0-7.5) 06/07/19 00:40 Ur Specific [place] 1.010 (1.002-1.030) 06/07/19 00:40 Urine Protein NEGATIVE mg/dL (NEGATIVE) 06/07/19 00:40 Urine Glucose (UA) >=1000 mg/dL (NEGATIVE) H 06/07/19 00:40 Urine Ketones 40 mg/dL (NEGATIVE) H 06/07/19 00:40 Urine Occult Blood TRACE-INTA (NEGATIVE) 06/07/19 00:40 Urine Nitrite NEGATIVE (NEGATIVE) 06/07/19 00:40 Urine Bilirubin NEGATIVE (NEGATIVE) 06/07/19 00:40 Urine Urobilinogen 0.2 (NORMAL) E.U./dL (NORMAL) 06/07/19 00:40 Ur Leukocyte Esterase NEGATIVE (NEGATIVE) 06/07/19 00:40 Ur Microscopic Review NOT INDICATED 06/07/19 00:40 Urine Culture Comments NOT INDICATED 06/07/19 00:40 Serum Ketones NEGATIVE (NEGATIVE) 06/06/19 22:45 - Procedures Procedures: Procedures DRAINAGE OF COMMON BILE DUCT WITH DRAIN DEV, OPEN APPROACH (12/03/16) EXCISION OF DUODENUM, ENDO, DIAGN (03/15/18) EXCISION OF ILEUM, ENDO, DIAGN (03/15/18) EXCISION OF LARGE INTESTINE, ENDO, DIAGN (03/15/18) EXCISION OF STOMACH, ENDO, DIAGN (03/15/18) INSPECTION OF LOWER INTESTINAL TRACT, ENDO (10/24/17) RELEASE GREATER OMENTUM, PERCUTANEOUS ENDOSCOPIC APPROACH (12/03/16) REPLACEMENT OF RIGHT LENS WITH SYNTH SUB, PERC APPROACH (11/03/17) RESECTION OF GALLBLADDER, OPEN APPROACH (12/03/16)
[2019-06-08] MEDS: DICYCLOMINE 10 MG CAPSULE PO SCH (21:55)
[2019-06-09] MEDS: SODIUM CHLORIDE FLUSH 0.9% 10 ML SYRINGE IVP SCH ×3 (01:39→19:17)
[2019-06-09] MEDS: MORPHINE 2 MG/ML CARPUJECT IVP PRN ×8 (02:00→23:51)
[2019-06-09] MEDS: SODIUM CHLORIDE 0.9% 1,000 ML IV SCH (03:42)
[2019-06-09] MEDS: HYDROcod/ACETAM 5/325 MG TABLET PO PRN ×4 (03:56→20:36)
[2019-06-09 05:44] LABS: CALCIUM 8.7 mg/dL (8.5-10.3); CREATININE 0.8 mg/dL (0.6-1.2); MAGNESIUM 2.1 mg/dL (1.7-2.8)
[2019-06-09] MEDS: PANTOPRAZOLE 40 MG TABLET PO SCH (06:06)
[2019-06-09] MEDS: DICYCLOMINE 10 MG CAPSULE PO SCH ×3 (06:06→21:34)
[2019-06-09] MEDS: INSULIN ASPART 300 UNIT/3 ML PEN SUBQ SCH ×4 (08:15→21:25)
[2019-06-09] MEDS ORDERED: SALINE ENEMA 133 ML BOTTLE RC ONE (09:00)
--- NOTE | 2019-06-09 09:25 | PROVIDER PROGRESS NOTE ---
Assessment/Plan - Problem List (1) Acute pancreatitis Qualifiers: Pancreatitis type: unspecified pancreatitis type Acute pancreatitis complication: unspecified Qualified Code(s): K85.90 - Acute pancreatitis without necrosis or infection, unspecified Assessment/Plan: Still having epigastric pain, still needing narcotics for pain control. Still has some pain after drinking clear liquids, but is hungry and reports that he can tolerate chicken broth with noodles, a runny egg and dry toast. I will order these specific things with the kitchen/application release manager (2) Pancreatic lesion Assessment/Plan: This lesion was initially considered a homogeneous mass but on repeat "pancreatic protocol" CT scan, the findings are complex and consistent with acute pancreatitis. (3) Constipation Assessment/Plan: The suppository 2 days ago had no effect. The soap suds enema and finger disimpaction had no effect yesterday. Will try a sugar and baking soda in water enema today, instead of the Fleets enema.>>> he did have a good hard brown BM after an hour of the enema instilled. he still has lower abd pain. Next enema will be tomorrow. Walking was also advised for helping constipation. (4) Dehydration Assessment/Plan: Continue iv fluids, while his po liquid intake is less than optimal. 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 Will change iv hydration from NS to D5NS. Continue Insulin ss coverage for management. (6) BPH (benign prostatic hyperplasia) Assessment/Plan: Will resume his evening Doxazocin (7) CML (chronic myeloid leukemia) in relapse Assessment/Plan: Stable (8) Hyponatremia Assessment/Plan: Resolved - Current Meds Current Meds: Current Medications Generic Name Dose Route Start Last Admin Trade Name Freq PRN Reason Stop Dose Admin Hydrocodone Bitart/Acetaminophen 1 tab 06/07/19 01:52 06/09/19 08:16 [place] 5/325 PO 1 tab Q4HR PRN Administration PAIN Dicyclomine HCl 20 mg 06/08/19 22:00 06/09/19 06:06 Bentyl PO 20 mg TID CARMELO Administration Heparin Sodium (Porcine) 5,000 unit 06/07/19 09:00 06/08/19 21:01 SUBQ 5,000 unit BID CARMELO Administration Sodium Chloride 1,000 mls @ 100 mls/hr 06/07/19 02:00 06/09/19 07:03 Normal Saline 0.9% IV 100 mls/hr .Q10H CARMELO Infusion Insulin Aspart 1 - 5 unit 06/07/19 17:30 06/09/19 08:15 Novolog SUBQ Not Given 0800,1200,1700,2100 [facility] Protocol Insulin Human NPH 50 unit 06/07/19 09:00 06/08/19 21:01 Humulin N SUBQ 50 unit BID CARMELO Administration Lisinopril 20 mg 06/07/19 09:00 06/08/19 09:02 Zestril PO 20 mg DAILY CARMELO Administration Metoprolol Tartrate 25 mg 06/07/19 09:00 06/08/19 21:03 Lopressor PO 25 mg BID CARMELO Administration Morphine Sulfate 2 mg 06/07/19 01:06 06/09/19 08:17 Morphine (Carpuject) IVP 2 mg Q2HR PRN Administration Pain 8 to 10 Pantoprazole Sodium 40 mg 06/07/19 07:00 06/09/19 06:06 Protonix PO 40 mg QDAC CARMELO Administration Sodium Chloride 10 ml 06/07/19 01:06 06/07/19 02:25 Normal Saline Flush 0.9% IVP 10 ml PRN PRN Administration NEEDED PER PROVIDER ORDERS Sodium Chloride 10 ml 06/07/19 09:00 06/09/19 01:39 Normal Saline Flush 0.9% IVP Not Given 0100,0900,1700 CARMELO - Lab Result Fish Bone Diagrams: 06/07/19 04:25 06/09/19 04:40 - Additional Planning My Orders: My Active Orders 06/08/19 10:56 Enema [RC] .ONCE 06/08/19 22:00 Dicyclomine [Bentyl] 20 mg PO TID 06/09/19 10:00 Dextrose 5%-0.9% NaCl [D5ns] 1,000 ml IV 100 mls/hr 06/10/19 05:00 BMP - BASIC METABOLIC PANEL [CHEM] DAILYLAB 06/11/19 05:00 BMP - BASIC METABOLIC PANEL [CHEM] DAILYLAB Subjective - Subjective Patient Reports: Pain, Other (He wants his med for BPH resumed) Objective Vital Signs: Vital Signs - 24 hr 06/08/19 06/08/19 06/08/19 12:59 16:25 20:24 Temperature 36.3 C L 36.6 C 36.8 C Heart Rate [ 96 91 95 Brachial] Respiratory 20 20 20 Rate Blood Pressure Blood Pressure 108/61 127/79 116/74 [Left Brachial artery] O2 Saturation 95 96 96 06/08/19 06/09/19 06/09/19 21:03 00:00 04:19 Temperature 36.8 C 36.2 C L Heart Rate [ 73 77 Brachial] Respiratory 18 18 Rate Blood Pressure 116/74 Blood Pressure 125/66 146/67 H [Left Brachial artery] O2 Saturation 96 96 06/09/19 08:09 Temperature 36.6 C Heart Rate [ 83 Brachial] Respiratory 20 Rate Blood Pressure Blood Pressure 138/76 H [Left Brachial artery] O2 Saturation 95 Oxygen O2 Source Room air I&O (Last 24 Hrs): Intake and Output Totals x24h 06/07/19 06/08/19 06/09/19 23:59 23:59 23:59 Intake Total 2905 3336.667 3235 Output Total 2225 2825 1975 Balance 680 023.150 7282 General: Alert, Oriented x3 HEENT: EOMI, Mucous membr. moist/pink, Other (L eye squinting and he is blind in this eye) Neck: Supple Neuro: Alert, Non Focal, Other (foot pain) Cardiovascular: Regular rate Respiratory: No respiratory distress Abdomen: Soft, Other (Diminished bowel sounds, hypertympanic) Extremities: No edema - Results Results: Laboratory Results WBC 13.3 x10^3/uL (4.8-10.8) H 06/07/19 04:25 RBC 5.08 10^6/uL (4.70-6.10) 06/07/19 04:25 Hgb 16.1 g/dL (14.0-18.0) 06/07/19 04:25 Hct 48.5 % (42.0-52.0) 06/07/19 04:25 MCV 95.5 fL (80.0-94.0) H 06/07/19 04:25 MCH 31.7 pg (27.0-31.0) H 06/07/19 04:25 MCHC 33.2 g/dL (32.0-36.0) 06/07/19 04:25 RDW 13.8 % (12.0-15.0) 06/07/19 04:25 Plt Count 140 10^3/uL (130-450) 06/07/19 04:25 MPV 10.7 fL (7.4-11.4) 06/07/19 04:25 Neut # (Auto) 9.1 10^3/uL (1.5-6.6) H 06/07/19 04:25 Lymph # (Auto) 3.1 10^3/uL (1.5-3.5) 06/07/19 04:25 [place] # (Auto) 0.9 10^3/uL (0.0-1.0) 06/07/19 04:25 Eos # (Auto) 0.0 10^3/uL (0.0-0.7) 06/07/19 04:25 Baso # (Auto) 0.1 10^3/uL (0.0-0.1) 06/07/19 04:25 Absolute Nucleated RBC 0.00 x10^3/uL 06/07/19 04:25 Nucleated RBC % 0.0 /100WBC 06/07/19 04:25 PT 13.9 secs (9.9-12.6) H 06/06/19 22:45 INR 1.2 (0.8-1.2) 06/06/19 22:45 APTT 27.8 secs (24.9-33.3) 06/06/19 22:45 VBG pH 7.444 (7.31-7.41) H 06/06/19 22:45 VBG pCO2 34.6 mmHg (41-51) L 06/06/19 22:45 VBG pO2 36.0 mmHg (25-47) 06/06/19 22:45 VBG HCO3 23.2 mmol/L (23-28) 06/06/19 22:45 VBG Total CO2 24.2 mmol/L (24-29) 06/06/19 22:45 VBG O2 Saturation 77.5 % (60-80) 06/06/19 22:45 VBG Base Excess -0.1 mmol/L (-2 - +2) 06/06/19 22:45 Sodium 138 mmol/L (135-145) 06/09/19 04:40 Potassium 3.6 mmol/L (3.5-5.0) 06/09/19 04:40 Chloride 108 mmol/L (101-111) 06/09/19 04:40 Carbon Dioxide 24 mmol/L (21-32) 06/09/19 04:40 Anion Gap 6.0 (6-13) 06/09/19 04:40 BUN 8 mg/dL (6-20) 06/09/19 04:40 Creatinine 0.8 mg/dL (0.6-1.2) 06/09/19 04:40 Estimated GFR (MDRD) 97 (>89) 06/09/19 04:40 Glucose 118 mg/dL (70-100) H 06/09/19 04:40 POC Whole Bld Glucose 134 mg/dL (70 - 100) H 06/09/19 08:04 Glycated Hemoglobin 7.6 % (4.6-6.2) H 06/07/19 04:25 Estim Average Glucose 171 (70-100) H 06/07/19 04:25 Lactic Acid 1.9 mmol/L (0.5-2.2) 06/06/19 22:45 Calcium 8.7 mg/dL (8.5-10.3) 06/09/19 04:40 Phosphorus 2.0 mg/dL (2.5-4.6) L 06/07/19 04:25 Magnesium 2.1 mg/dL (1.7-2.8) 06/09/19 04:40 Total Bilirubin 1.2 mg/dL (0.2-1.0) H 06/06/19 22:45 Direct Bilirubin 0.3 mg/dL (0.1-0.5) 06/06/19 22:45 AST 39 IU/L (10-42) 06/06/19 22:45 ALT 60 IU/L (10-60) 06/06/19 22:45 Alkaline Phosphatase 86 IU/L (42-121) 06/06/19 22:45 Total Creatine Kinase 212 IU/L (22-269) 06/06/19 22:45 Troponin I High Sens 17.1 ng/L (2.3-19.7) 06/06/19 22:45 B-Natriuretic Peptide 20 pg/mL (5-100) 06/06/19 22:45 Total Protein 8.3 g/dL (6.7-8.2) H 06/06/19 22:45 Albumin 5.0 g/dL (3.2-5.5) 06/06/19 22:45 Globulin 3.3 g/dL (2.1-4.2) 06/06/19 22:45 Lipase 49 U/L (22-51) 06/06/19 22:45 Urine Color YELLOW 06/07/19 00:40 Urine Clarity CLEAR (CLEAR) 06/07/19 00:40 Urine pH 7.0 PH (5.0-7.5) 06/07/19 00:40 Ur Specific [place] 1.010 (1.002-1.030) 06/07/19 00:40 Urine Protein NEGATIVE mg/dL (NEGATIVE) 06/07/19 00:40 Urine Glucose (UA) >=1000 mg/dL (NEGATIVE) H 06/07/19 00:40 Urine Ketones 40 mg/dL (NEGATIVE) H 06/07/19 00:40 Urine Occult Blood TRACE-INTA (NEGATIVE) 06/07/19 00:40 Urine Nitrite NEGATIVE (NEGATIVE) 06/07/19 00:40 Urine Bilirubin NEGATIVE (NEGATIVE) 06/07/19 00:40 Urine Urobilinogen 0.2 (NORMAL) E.U./dL (NORMAL) 06/07/19 00:40 Ur Leukocyte Esterase NEGATIVE (NEGATIVE) 06/07/19 00:40 Ur Microscopic Review NOT INDICATED 06/07/19 00:40 Urine Culture Comments NOT INDICATED 06/07/19 00:40 Serum Ketones NEGATIVE (NEGATIVE) 06/06/19 22:45 - Procedures Procedures: Procedures DRAINAGE OF COMMON BILE DUCT WITH DRAIN DEV, OPEN APPROACH (12/03/16) EXCISION OF DUODENUM, ENDO, DIAGN (03/15/18) EXCISION OF ILEUM, ENDO, DIAGN (03/15/18) EXCISION OF LARGE INTESTINE, ENDO, DIAGN (03/15/18) EXCISION OF STOMACH, ENDO, DIAGN (03/15/18) INSPECTION OF LOWER INTESTINAL TRACT, ENDO (10/24/17) RELEASE GREATER OMENTUM, PERCUTANEOUS ENDOSCOPIC APPROACH (12/03/16) REPLACEMENT OF RIGHT LENS WITH SYNTH SUB, PERC APPROACH (11/03/17) RESECTION OF GALLBLADDER, OPEN APPROACH (12/03/16)
[2019-06-09] MEDS: INSULIN NPH HUMAN 300 UNIT/3 ML VIAL SUBQ SCH (09:56)
[2019-06-09] MEDS: HEPARIN 5,000 UNIT/ML VIAL SUBQ SCH ×2 (10:55→20:36)
[2019-06-09] MEDS: lisinopriL 20 MG TABLET PO SCH (10:58)
[2019-06-09] MEDS: METOPROLOL TARTRATE 25 MG TABLET PO SCH ×2 (10:59→20:35)
[2019-06-09] MEDS: DEXTROSE 5%-0.9% NACL 1,000 ML IV SCH ×2 (11:22→20:35)
[2019-06-09] MEDS: DOXAZOSIN 4 MG TABLET PO SCH (20:35)
[2019-06-10] MEDS: INSULIN NPH HUMAN 300 UNIT/3 ML VIAL SUBQ SCH ×2 (00:18→10:22)
[2019-06-10] MEDS: SODIUM CHLORIDE FLUSH 0.9% 10 ML SYRINGE IVP SCH ×3 (00:21→18:01)
[2019-06-10] MEDS: MORPHINE 2 MG/ML CARPUJECT IVP PRN ×2 (04:51→08:09)
[2019-06-10 05:48] LABS: CALCIUM 8.7 mg/dL (8.5-10.3); CREATININE 0.8 mg/dL (0.6-1.2)
[2019-06-10] MEDS: DICYCLOMINE 10 MG CAPSULE PO SCH ×3 (06:11→21:16)
[2019-06-10] MEDS: PANTOPRAZOLE 40 MG TABLET PO SCH (06:12)
[2019-06-10] MEDS: HYDROcod/ACETAM 5/325 MG TABLET PO PRN ×4 (06:25→21:16)
[2019-06-10] MEDS: DEXTROSE 5%-0.9% NACL 1,000 ML IV SCH (06:57)
[2019-06-10] MEDS: METOPROLOL TARTRATE 25 MG TABLET PO SCH ×2 (09:03→21:00)
[2019-06-10] MEDS: lisinopriL 20 MG TABLET PO SCH (09:03)
[2019-06-10] MEDS: INSULIN ASPART 300 UNIT/3 ML PEN SUBQ SCH ×4 (09:04→21:02)
[2019-06-10] MEDS: HEPARIN 5,000 UNIT/ML VIAL SUBQ SCH ×2 (09:04→21:02)
[2019-06-10] MEDS ORDERED: D5NS W/20 MEQ KCL 1,000 ML IV SCH (10:00)
--- NOTE | 2019-06-10 11:10 | PROVIDER PROGRESS NOTE ---
Assessment/Plan - Problem List (1) Acute pancreatitis Qualifiers: Pancreatitis type: unspecified pancreatitis type Acute pancreatitis complication: unspecified Qualified Code(s): K85.90 - Acute pancreatitis without necrosis or infection, unspecified Assessment/Plan: Still having epigastric pain, still needing narcotics for pain control, but overall less Will advance to a soft, carb-controlled diet watching pain. Will try to use only oral meds for pain control. If that is tolerated along with diet and BMs, he could be Dch tomorrow. Check triglycerides, if not yet done (2) Pancreatic lesion Assessment/Plan: This lesion was initially considered a homogeneous mass but on repeat "pancreatic protocol" CT scan, the findings are complex and consistent with acute pancreatitis. (3) Hypoglycemia due to insulin Assessment/Plan: Glu was 67 and he needed OJ and it nicole to 99, thus no NPH given. Will stop the long-acting Insulin, continue sliding scale only, right now, until he has more oral intake. Continue peripheral iv with D5. (4) IDDM (insulin dependent diabetes mellitus) Assessment/Plan: He used to be on NPH Insulin 60 U sq bid plus Reg Insulin 30 U sq bid, before this admission. With that schedule, his A1c was 7.6 at admission, indicating fair control. The NPH Insulin ordered here was only 30 U sq bid plus a Low-dose sliding scale, but even that is causing excessive glu drop (as above). Will stop NPH Insulin while his po intake is negligible, continue sliding scale. (5) Constipation Assessment/Plan: He had 2 BMs after yesterday's sugar and baking soda in water enema. This morning he had a BM naturally. Watch sx and BMs as advance diet. (6) Dehydration Assessment/Plan: Dry mucosa resolved but he is not adequately hydrating orally. Will continue iv fluids as try to advance diet. Follow BMP daily. (7) Hypokalemia Assessment/Plan: Replace K in iv fluids Follow BMP daily. (8) BPH (benign prostatic hyperplasia) Assessment/Plan: His Doxazosin was resumed yesterday. 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 Assessment/Plan: Stable (10) Hyponatremia Assessment/Plan: Resolved - Current Meds Current Meds: Current Medications Generic Name Dose Route Start Last Admin Trade Name Freq PRN Reason Stop Dose Admin Hydrocodone Bitart/Acetaminophen 1 tab 06/07/19 01:52 06/10/19 06:25 [place] 5/325 PO 1 tab Q4HR PRN Administration PAIN Dicyclomine HCl 20 mg 06/08/19 22:00 06/10/19 06:11 Bentyl PO 20 mg TID CARMELO Administration Doxazosin Mesylate 4 mg 06/09/19 21:00 06/09/19 20:35 Cardura PO 4 mg QPM CARMELO Administration Heparin Sodium (Porcine) 5,000 unit 06/07/19 09:00 06/10/19 09:04 SUBQ Not Given BID [facility] Potassium Chloride/Dextrose/Sod Cl 1,000 mls @ 100 mls/hr 06/10/19 10:00 06/10/19 10:22 IV 100 mls/hr .Q10H CARMELO Administration Insulin Aspart 1 - 5 unit 06/07/19 17:30 06/10/19 09:04 Novolog SUBQ Not Given 0800,1200,1700,2100 [facility] Protocol Lisinopril 20 mg 06/07/19 09:00 06/10/19 09:03 Zestril PO 20 mg DAILY CARMELO Administration Metoprolol Tartrate 25 mg 06/07/19 09:00 06/10/19 09:03 Lopressor PO 25 mg BID CARMELO Administration Morphine Sulfate 2 mg 06/07/19 01:06 06/10/19 08:09 Morphine (Carpuject) IVP 2 mg Q2HR PRN Administration Pain 8 to 10 Pantoprazole Sodium 40 mg 06/07/19 07:00 06/10/19 06:12 Protonix PO 40 mg QDAC CARMELO Administration Sodium Chloride 10 ml 06/07/19 01:06 06/07/19 02:25 Normal Saline Flush 0.9% IVP 10 ml PRN PRN Administration NEEDED PER PROVIDER ORDERS Sodium Chloride 10 ml 06/07/19 09:00 06/10/19 09:04 Normal Saline Flush 0.9% IVP Not Given 0100,0900,1700 [facility] - Lab Result Fish Bone Diagrams: 06/07/19 04:25 06/10/19 04:40 - Additional Planning My Orders: My Active Orders 06/09/19 11:53 Miscellaenous Nursing Order [RC] ONCE 06/09/19 21:00 Doxazosin [Cardura] 4 mg PO QPM 06/10/19 10:00 D5ns W/20 Meq KCl 1,000 ml IV 100 mls/hr 06/10/19 20:00 Senna [Senokot] 8.6 - 17.2 mg PO DAILY polyethylene glycoL 3350 [Miralax] 17 gm PO DAILY 06/11/19 05:00 BMP - BASIC METABOLIC PANEL [CHEM] DAILYLAB Subjective - Subjective Patient Reports: Feeling Better (Still needed one oral and one iv narcotic dose by mid-day, for pain control) Nursing Reports: Other (Had a moderate BM before liquid lunch, without needing an enema, and was able to walk in hallway today) Objective Vital Signs: Vital Signs - 24 hr 06/09/19 06/09/19 06/10/19 16:43 21:00 00:34 Temperature 36.3 C L 36.8 C 37.0 C Heart Rate [ 70 74 70 Brachial] Respiratory 20 20 18 Rate Blood Pressure Blood Pressure 122/63 118/71 115/56 L [Left Brachial artery] O2 Saturation 98 97 96 06/10/19 06/10/19 08:00 09:03 Temperature 36.3 C L Heart Rate [ 79 Brachial] Respiratory 20 Rate Blood Pressure 118/62 Blood Pressure 118/62 [Left Brachial artery] O2 Saturation 96 Oxygen O2 Source Room air I&O (Last 24 Hrs): Intake and Output Totals x24h 06/08/19 06/09/19 06/10/19 23:59 23:59 23:59 Intake Total 3336.667 6291.667 1661 Output Total 2825 2975 1100 Balance 840.667 1656.667 561 General: Alert, Oriented x3 HEENT: Mucous membr. moist/pink Neck: Supple Neuro: Alert, Non Focal Cardiovascular: Regular rate Respiratory: No respiratory distress Abdomen: Soft Extremities: No edema - Results Results: Laboratory Results WBC 13.3 x10^3/uL (4.8-10.8) H 06/07/19 04:25 RBC 5.08 10^6/uL (4.70-6.10) 06/07/19 04:25 Hgb 16.1 g/dL (14.0-18.0) 06/07/19 04:25 Hct 48.5 % (42.0-52.0) 06/07/19 04:25 MCV 95.5 fL (80.0-94.0) H 06/07/19 04:25 MCH 31.7 pg (27.0-31.0) H 06/07/19 04:25 MCHC 33.2 g/dL (32.0-36.0) 06/07/19 04:25 RDW 13.8 % (12.0-15.0) 06/07/19 04:25 Plt Count 140 10^3/uL (130-450) 06/07/19 04:25 MPV 10.7 fL (7.4-11.4) 06/07/19 04:25 Neut # (Auto) 9.1 10^3/uL (1.5-6.6) H 06/07/19 04:25 Lymph # (Auto) 3.1 10^3/uL (1.5-3.5) 06/07/19 04:25 [place] # (Auto) 0.9 10^3/uL (0.0-1.0) 06/07/19 04:25 Eos # (Auto) 0.0 10^3/uL (0.0-0.7) 06/07/19 04:25 Baso # (Auto) 0.1 10^3/uL (0.0-0.1) 06/07/19 04:25 Absolute Nucleated RBC 0.00 x10^3/uL 06/07/19 04:25 Nucleated RBC % 0.0 /100WBC 06/07/19 04:25 PT 13.9 secs (9.9-12.6) H 06/06/19 22:45 INR 1.2 (0.8-1.2) 06/06/19 22:45 APTT 27.8 secs (24.9-33.3) 06/06/19 22:45 VBG pH 7.444 (7.31-7.41) H 06/06/19 22:45 VBG pCO2 34.6 mmHg (41-51) L 06/06/19 22:45 VBG pO2 36.0 mmHg (25-47) 06/06/19 22:45 VBG HCO3 23.2 mmol/L (23-28) 06/06/19 22:45 VBG Total CO2 24.2 mmol/L (24-29) 06/06/19 22:45 VBG O2 Saturation 77.5 % (60-80) 06/06/19 22:45 VBG Base Excess -0.1 mmol/L (-2 - +2) 06/06/19 22:45 Sodium 140 mmol/L (135-145) 06/10/19 04:40 Potassium 3.4 mmol/L (3.5-5.0) L 06/10/19 04:40 Chloride 105 mmol/L (101-111) 06/10/19 04:40 Carbon Dioxide 27 mmol/L (21-32) 06/10/19 04:40 Anion Gap 8.0 (6-13) 06/10/19 04:40 BUN 5 mg/dL (6-20) L 06/10/19 04:40 Creatinine 0.8 mg/dL (0.6-1.2) 06/10/19 04:40 Estimated GFR (MDRD) 97 (>89) 06/10/19 04:40 Glucose 87 mg/dL (70-100) 06/10/19 04:40 POC Whole Bld Glucose 99 mg/dL (70 - 100) 06/10/19 09:36 Glycated Hemoglobin 7.6 % (4.6-6.2) H 06/07/19 04:25 Estim Average Glucose 171 (70-100) H 06/07/19 04:25 Lactic Acid 1.9 mmol/L (0.5-2.2) 06/06/19 22:45 Calcium 8.7 mg/dL (8.5-10.3) 06/10/19 04:40 Phosphorus 2.0 mg/dL (2.5-4.6) L 06/07/19 04:25 Magnesium 2.1 mg/dL (1.7-2.8) 06/09/19 04:40 Total Bilirubin 1.2 mg/dL (0.2-1.0) H 06/06/19 22:45 Direct Bilirubin 0.3 mg/dL (0.1-0.5) 06/06/19 22:45 AST 39 IU/L (10-42) 06/06/19 22:45 ALT 60 IU/L (10-60) 06/06/19 22:45 Alkaline Phosphatase 86 IU/L (42-121) 06/06/19 22:45 Total Creatine Kinase 212 IU/L (22-269) 06/06/19 22:45 Troponin I High Sens 17.1 ng/L (2.3-19.7) 06/06/19 22:45 B-Natriuretic Peptide 20 pg/mL (5-100) 06/06/19 22:45 Total Protein 8.3 g/dL (6.7-8.2) H 06/06/19 22:45 Albumin 5.0 g/dL (3.2-5.5) 06/06/19 22:45 Globulin 3.3 g/dL (2.1-4.2) 06/06/19 22:45 Lipase 49 U/L (22-51) 06/06/19 22:45 Urine Color YELLOW 06/07/19 00:40 Urine Clarity CLEAR (CLEAR) 06/07/19 00:40 Urine pH 7.0 PH (5.0-7.5) 06/07/19 00:40 Ur Specific [place] 1.010 (1.002-1.030) 06/07/19 00:40 Urine Protein NEGATIVE mg/dL (NEGATIVE) 06/07/19 00:40 Urine Glucose (UA) >=1000 mg/dL (NEGATIVE) H 06/07/19 00:40 Urine Ketones 40 mg/dL (NEGATIVE) H 06/07/19 00:40 Urine Occult Blood TRACE-INTA (NEGATIVE) 06/07/19 00:40 Urine Nitrite NEGATIVE (NEGATIVE) 06/07/19 00:40 Urine Bilirubin NEGATIVE (NEGATIVE) 06/07/19 00:40 Urine Urobilinogen 0.2 (NORMAL) E.U./dL (NORMAL) 06/07/19 00:40 Ur Leukocyte Esterase NEGATIVE (NEGATIVE) 06/07/19 00:40 Ur Microscopic Review NOT INDICATED 06/07/19 00:40 Urine Culture Comments NOT INDICATED 06/07/19 00:40 Serum Ketones NEGATIVE (NEGATIVE) 06/06/19 22:45 - Procedures Procedures: Procedures DRAINAGE OF COMMON BILE DUCT WITH DRAIN DEV, OPEN APPROACH (12/03/16) EXCISION OF DUODENUM, ENDO, DIAGN (03/15/18) EXCISION OF ILEUM, ENDO, DIAGN (03/15/18) EXCISION OF LARGE INTESTINE, ENDO, DIAGN (03/15/18) EXCISION OF STOMACH, ENDO, DIAGN (03/15/18) INSPECTION OF LOWER INTESTINAL TRACT, ENDO (10/24/17) RELEASE GREATER OMENTUM, PERCUTANEOUS ENDOSCOPIC APPROACH (12/03/16) REPLACEMENT OF RIGHT LENS WITH SYNTH SUB, PERC APPROACH (11/03/17) RESECTION OF GALLBLADDER, OPEN APPROACH (12/03/16)
[2019-06-10] MEDS: D5NS W/20 MEQ KCL 1,000 ML IV SCH ×2 (14:11→21:01)
[2019-06-10] MEDS: SENNA 8.6 MG TABLET PO SCH (19:27)
[2019-06-10] MEDS: polyethylene glycoL 3350 17 GM PACKET PO SCH (19:27)
[2019-06-10] MEDS: DOXAZOSIN 4 MG TABLET PO SCH (21:01)
[2019-06-11] MEDS: SODIUM CHLORIDE FLUSH 0.9% 10 ML SYRINGE IVP SCH ×3 (00:47→16:59)
[2019-06-11] MEDS: HYDROcod/ACETAM 5/325 MG TABLET PO PRN ×2 (01:17→05:09)
[2019-06-11 05:13] LABS: CALCIUM 8.9 mg/dL (8.5-10.3); CREATININE 0.8 mg/dL (0.6-1.2)
[2019-06-11 05:36] LABS: CHOL/HDL RATIO 5.1 (<5.0); CHOLESTEROL 97 mg/dL; HDL CHOLESTEROL 19 mg/dL; LDL CHOLESTEROL,CALCULATED 40 mg/dL; LDL/HDL RATIO 2.1 (<3.6); MAGNESIUM 1.8 mg/dL (1.7-2.8); VLDL CHOLESTEROL 38 mg/dL
[2019-06-11] MEDS: DICYCLOMINE 10 MG CAPSULE PO SCH ×2 (06:10→12:55)
[2019-06-11] MEDS: PANTOPRAZOLE 40 MG TABLET PO SCH (06:10)
[2019-06-11] MEDS ORDERED: D5NS W/20 MEQ KCL 1,000 ML IV SCH (08:44)
[2019-06-11] MEDS: METOPROLOL TARTRATE 25 MG TABLET PO SCH (08:48)
[2019-06-11] MEDS: polyethylene glycoL 3350 17 GM PACKET PO SCH (08:48)
[2019-06-11] MEDS: lisinopriL 20 MG TABLET PO SCH (08:48)
[2019-06-11] MEDS: SENNA 8.6 MG TABLET PO SCH (08:49)
[2019-06-11] MEDS: HEPARIN 5,000 UNIT/ML VIAL SUBQ SCH (08:50)
[2019-06-11] MEDS: INSULIN ASPART 300 UNIT/3 ML PEN SUBQ SCH ×3 (08:53→16:59)
[2019-06-11] MEDS ORDERED: DOCUSATE SODIUM 250 MG CAPSULE PO SCH (09:00)
[2019-06-11] MEDS ORDERED: INSULIN NPH HUMAN 300 UNIT/3 ML VIAL SUBQ SCH (09:00)
[2019-06-11] MEDS ORDERED: MINERAL OIL ENEMA 133 ML BOTTLE RC SCH (15:01)
--- NOTE | 2019-06-11 18:31 | Discharge Plan ---
Discharge Plan Problem Reviewed?: Yes Disposition: Home, Self Care Condition: Fair Prescriptions: HYDROcod/ACETAM 5/325 [[place] 5/325] 1 tab PO BID PRN #4 tablet PRN Reason: Severe Pain Diet: Soft Activity Restrictions: Activity as Tolerated Shower Restrictions: No Instruction Topics: Constipation Health Concerns: You were admitted for managing a bout of pancreatitis which is accompanied by constipation for you. You required iv hydration, enemas and bowel rest until there was less abdominal pain and some bowel movements. Continue to eat a soft diet that is easily digestible, advance this as tolerated. Continue to stay well-hydrated with liquids. Several tablets of [place] were prescribed for severe pain control, and sent electronically to your [facility] pharmacy. Please resume all your usual pre-hospital medications and management. Please resume your usual diabetes management, slowly increasing your insulin doses until you are back to your baseline, which could take even a week. Plan of Treatment: As above. Care Goals: Improvement in symptoms and stabilization are the goals. Assessment: Patient understands and is agreeable with the plan. Additional Instructions or Follow Up instructions: If you have new or worsening symptoms, call your PCP for advice or come to the ER. It is advised that you have a [employer] who specializes in the pancreas, for your future management. No Smoking: If you smoke, Please STOP! Call for help. Follow-up with: Darwin Calvert MD [Primary Care Provider] -
--- NOTE | 2019-06-11 18:43 | DISCHARGE SUMMARY ---
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 He states the constipation began this past Tuesday and he has not had a bowel movement since then. He normally goes on a regular basis. He has had associated abdominal pain that is 20 out of 10 and located in the epigastric and right upper quadrant. The pain is nonradiating. It is now 3 out of 10 after receiving hydromorphone IV in the emergency department. He states is a history of recurrent pancreatitis in the past and he states that now his pancreas is atrophied and that is why he is a diabetic. He states he has had similar symptoms in the past and normally last 5 to 6 days and occur 2-3 times a year. His states that normally he takes oxycodone for his 5 to 6 days and his pain resolves but he does not have pain medications at home and the Tylenol he was taking was not controlling it. He did drink some lactose-free milk this tuesday which she feels may have triggered this episode. He states he had quit drinking milk as per recommendation of the vice president of instruction and that this improved his symptoms. He states he has had decreased oral intake secondary to the abdominal pain. He states he feels thirsty and dehydrated. His blood sugars have also been elevated in the 300s at home over the past few days despite taking his usual dose of insulin. He reports no fevers, chills, chest pain, dyspnea. He states he does not drink alcohol or smoke. He had a cholecystectomy in the past. He has not had a CT of the abdomen pelvis in a few years. He does not recall ever being told he had a pancreatic cyst or mass. In the emergency department, he is found to be afebrile with temperature of 36.5 C. He was tachycardic with a heart of 100. Hypertensive with a blood pressure of 165/94. He was not tachypneic and was saturating well on room air. Labs revealed an elevated white count of 13.2, hemoglobin of 18, platelets of 152. Sodium is decreased at 127. His glucose is elevated at 303. He has a normal anion gap and bicarbonate. Total bilirubin was mildly elevated at 1.2. Normal LFTs and Lipase. CT of the abdomen and pelvis revealed a 2.7 cm lesion of the head of the pancreas. The body and tail appear atrophic. Pancreatic CT or MRI was recommended by radiology. Given his abdominal pain, dehydration, and lesion of the head of the pancreas, he will be observed overnight for IV hydration, pain control and imaging, hopefully with MRI, of the abdomen and pelvis. - HOSPITAL COURSE Hospital Course: (1) Acute pancreatitis The patient and were both able to give me a complete history of how he developed pancreatitis in his lifetime: He suffered with intermittent epigastric pain accompanied with constipation for 5 days which would relent, and when he went to his doctor everything was normal. Finally during 1 of these episodes he was lightheaded and weak, was seen in a PCP clinic that very day, was hypotensive, sent to the ER, transferred to [facility] where he was diagnosed with pancreatitis and required 11 days of hospitalization. After that episode, he has had about 6 attacks of acute pancreatitis. Over that time, he has come to know that his attacks of pancreatitis include epigastric pain with constipation for about 6-7 days. Here, he was started on iv fluids, bowel rest with sips and chips and then clear liquids. He required several days of iv Morphine for pain control, therefore he was made an Inpatient when the abdominal imaging was consistent with acute pancreatitis. His Lipase was not retested. His fasting serum Triglycerides were 190. Eventually [place] orally controlled his pain and he took in a soft diet without causing pain on the day of his discharge. He was discharged and advised a soft diet, advance as tolerated, with several tablets of [place] prescribed prn for severe pain. (2) Pancreatic lesion This lesion was initially considered a homogeneous mass but on repeat "pancreatic protocol" CT scan, the findings were complex and consistent with acute pancreatitis. It was read as having: Edema in the head and body of the pancreas with multiple small punctate calcifications within the pancreatic head, heterogeneous enhancement of the pancreas, fat stranding and phlegmon around the pancreatic head and body, the pancreatic tail is atrophic, the pancreatic duct in the body of the pancreas measures 4 mm in diameter, there is no measurable pancreatic mass, findings are most consistent with acute pancreatitis. The splenic artery and vein are patent, and there is steatosis of the liver. (3) Constipation As above in #1 and the dehydration also added to this. There was no obstruction on the 2 [address] abdominal [address]s. He said one of his home meds was for this problem, and Dicyclomine was resumed. He had no BM results after daily treatmen with a suppository, soap suds enema, finger disimpaction then daily enemas, until a sugar and baking soda in water enema and a Fleets enema worked. (4) Dehydration He was on iv fluids throughout hospitalization because of his minimal oral liquid intake. His oral mucosa appeared better hydrated each day. (5) Hyponatremia Hypovolemic hyponatremia, related to low salt and food intake was treated with iv saline hydration. (6) Hypokalemia He developed a Potassium of 3.2 from lack of Potassium in the iv fluids. It was replaced. 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 (8) IDDM (insulin dependent diabetes mellitus) He was taking NPH Insulin 60 U sq bid plus Reg Insulin 30 U sq bid, before this admission. With that schedule, his A1c was 7.6 at admission, indicating fair control. The patient and describe his diabetic complications: diabetic retinopathy requiring laser treatments, peripheral neuropathy for which she takes pain medications. He is legally blind in the left eye. He required a cl ear liquid diet until his day of discharge, when he tolerated diabetic soft food without epigastric or lower abdominal pain. (9) Hypoglycemia due to insulin Despite NPH doses of 20 U bid, his Glu was 67 one morning and he needed OJ and it nicole to 99, thus no NPH was given and the Regular Insulin sliding scale was used until he had more oral intake. D5 was also added to his iv fluids. (10) HTN His usual BP meds were used while here. 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 Stable - ALLERGIES Allergies/Adverse Reactions: Allergies Allergy/AdvReac Type Severity Reaction Status Date / Time Milk Containing Products Allergy Emesis Verified 06/06/19 21:25 tamsulosin [From Flomax] Allergy Respiratory Verified 06/06/19 21:25 - MEDICATIONS Home Medications: Ambulatory Orders Medication Instructions Recorded Confirmed Cholecalciferol (Vitamin D3) 1,000 unit PO DAILY 10/04/12 06/07/19 [Vitamin D3] Lisinopril 20 mg PO DAILY 10/04/12 06/07/19 Multivitamin [Multivitamins] 1 each PO DAILY 10/04/12 06/07/19 allopurinoL [Allopurinol] 300 mg PO DAILY 10/04/12 06/07/19 Insulin NPH Human Isophane 60 unit SQ BID 02/12/13 06/07/19 [Humulin N] Atorvastatin Calcium 20 mg PO QPM 10/23/15 06/07/19 Insulin Regular, Human [Humulin R] 30 unit SUBQ QID 10/23/15 06/07/19 Sildenafil Citrate 20 - 40 mg PO DAILY 10/23/15 06/07/19 Magnesium Oxide [Magnesium] 2,000 mg PO DAILY #0 10/28/15 06/07/19 Metoprolol Tartrate [Lopressor] 25 mg PO BID 10/21/17 06/07/19 Dicyclomine HCl 20 mg PO TID 01/30/18 06/07/19 Omeprazole 20 mg PO QDAC 06/07/19 06/07/19 HYDROcod/ACETAM 5/325 [[place] 5/325] 1 tab PO BID PRN #4 tablet 06/11/19 - PHYSICAL EXAM AT DISCHARGE General Appearance: positive: No acute distress, Alert Eyes Bilateral: positive: EOMI, Other (L eye legally blind, squints L eye) Neck: positive: Nml inspection, No JVD Respiratory: positive: No respiratory distress Cardiovascular: positive: Regular rate & rhythm, No murmur Abdomen: positive: No distention, Other (Diminished bowel sounds, mildly tender in RLQ, without guarding or rebound) Skin: positive: Color nml Extremities: positive: No pedal edema, Other (Pain in dorsum of feet) Neurologic/Psychiatric: positive: Oriented x3, Other (Non-focal grossly) - LABS Result Diagrams: 06/07/19 04:25 06/11/19 04:55 - DIAGNOSTIC IMAGING Diagnostic Imaging Results: Final report reviewed - FOLLOW UP Follow Up: See PCP or his Summer Analyst in 1-2 weeks for hospital follow-up. - TIME SPENT Time Spent in Discharge (Minutes): 65
[2019-06-11 19:15] VITALS: BP 118/63
== END 2019-06-11 19:20 | disposition home or self-care (01) | DRG 439 ==
LOC: ED 21:22 → MS3 06-07 01:06 → OBSVTOIN 06-07 17:47
PROVIDERS: ADMIT Internal Medicine; ATTEND Internal Medicine
DX: K85.90 Acute pancreatitis without necrosis or infection, unspecified (principal); E87.1 Hypo-osmolality and hyponatremia; C92.11 Chronic myeloid leukemia, BCR/ABL-positive, in remission; Z94.84 Stem cells transplant status; E86.0 Dehydration; E08.65 Diabetes mellitus due to underlying condition with hyperglycemia; K59.00 Constipation, unspecified; K21.9 Gastro-esophageal reflux disease without esophagitis; I10 Essential (primary) hypertension; N40.1 Benign prostatic hyperplasia with lower urinary tract symptoms; R35.0 Frequency of micturition; M10.9 Gout, unspecified; E87.6 Hypokalemia; E08.42 Diabetes mellitus due to underlying condition with diabetic polyneuropathy; E08.319 Diabetes mellitus due to underlying condition with unspecified diabetic retinopathy without macular edema; H54.40 Blindness, one eye, unspecified eye; E08.649 Diabetes mellitus due to underlying condition with hypoglycemia without coma; T38.3X5A Adverse effect of insulin and oral hypoglycemic [antidiabetic] drugs, initial encounter; Y92.230 Patient room in hospital as the place of occurrence of the external cause; Z79.4 Long term (current) use of insulin; Z90.49 Acquired absence of other specified parts of digestive tract; R93.5 Abnormal findings on diagnostic imaging of other abdominal regions, including retroperitoneum
CPT/HCPCS: 36415; 71045; 74170; 74177; 80048; 80061; 80076; 81003; 82009; 82550; 82803; 83036; 83605; 83690; 83735; 83880; 84100; 84484; 85025; 85610; 85730; 93005; 96361; 96372; 96374; 96375; 96376; 99284; 99285; A9270; G0378; J1170; J1815; Q9967; 81001; 83721; 87086

== ENCOUNTER 2019-10-05 09:35 | Outpatient (CLI) | payer MEDICARE ==
[2019-10-05 15:36] LABS: HB2 TOTAL 15.6 g/dL; HEMOGLOBIN A1C 0.92 g/dL; HEMOGLOBIN A1C % 7.5 % (4.6-6.2)
[2019-10-05 15:53] LABS: MICROALBUMIN,URINE < 0.2 mg/dL (0-300.0)
== END 2019-10-05 09:36 | disposition home or self-care (01) ==
LOC: LAB.S 09:35
PROVIDERS: ATTEND Physician Assistant
DX: E11.9 Type 2 diabetes mellitus without complications (principal); Z79.4 Long term (current) use of insulin
CPT/HCPCS: 36415; 82043; 82570; 83036

== ENCOUNTER 2020-06-09 08:16 | Outpatient (CLI) | payer MEDICARE ==
[2020-06-09 15:31] LABS: ESTIMATED AVERAGE GLUCOSE 148 mg/dL (70-100); HEMOGLOBIN A1c% 6.8 % (4.27-6.07)
== END 2020-06-09 08:17 | disposition home or self-care (01) ==
LOC: LAB.S 08:16
PROVIDERS: ATTEND Physician Assistant
DX: E11.9 Type 2 diabetes mellitus without complications (principal)
CPT/HCPCS: 36415; 83036

== ENCOUNTER 2020-09-25 10:21 | Outpatient (CLI) | payer MEDICARE ==
[2020-09-25 14:38] LABS: BASOPHILS % (AUTO) 0.8 %; EOSINOPHILS # (AUTO) 0.1 10^3/uL (0.0-0.7); EOSINOPHILS % (AUTO) 2.4 %; HCT - HEMATOCRIT 44.2 % (42.0-52.0); HGB - HEMOGLOBIN 14.8 g/dL (14.0-18.0); LYMPHOCYTES % (AUTO) 41.3 %; MEAN CORPUSCULAR HEMOGLOBIN 33.6 pg (27.0-31.0); MEAN CORPUSCULAR HGB CONC 33.5 g/dL (32.0-36.0); MEAN CORPUSCULAR VOLUME 100.2 fL (80.0-94.0); MEAN PLATELET VOLUME 11.4 fL (7.4-11.4); MONOCYTES # (AUTO) 0.3 10^3/uL (0.0-1.0); MONOCYTES % (AUTO) 6.3 %; NEUTROPHILS # (AUTO) 2.4 10^3/uL (1.5-6.6); PLT - PLATELET COUNT 89 10^3/uL (130-450); RED BLOOD COUNT 4.41 10^6/uL (4.70-6.10); RED CELL DISTRIBUTION WIDTH 13.8 % (12.0-15.0); WHITE BLOOD COUNT 4.9 x10^3/uL (4.8-10.8)
[2020-09-25 15:11] LABS: MICROALBUMIN,URINE < 0.2 mg/dL (0-300.0)
[2020-09-25 15:19] LABS: ALBUMIN 4.2 g/dL (3.2-5.5); ALBUMIN/GLOBULIN RATIO 1.6 (1.0-2.2); ALKALINE PHOSPHATASE 73 IU/L (42-121); ALT ALANINE AMINOTRANSFERASE 45 IU/L (10-60); AST ASPARTATE AMINOTRANSFERASE 44 IU/L (10-42); BILIRUBIN,TOTAL 0.9 mg/dL (0.2-1.0); BUN - BLOOD UREA NITROGEN 14 mg/dL (6-20); CALCIUM 9.9 mg/dL (8.5-10.3); CARBON DIOXIDE - CO2 23 mmol/L (21-32); CHLORIDE 104 mmol/L (101-111); CHOL/HDL RATIO 3.5 (<5.0); CHOLESTEROL 85 mg/dL; CREATININE 0.9 mg/dL (0.6-1.2); GFR - MDRD 84 (>89); GLUCOSE 304 mg/dL (70-100); HDL CHOLESTEROL 24 mg/dL; LDL CHOLESTEROL,CALCULATED 31 mg/dL; LDL/HDL RATIO 1.3 (<3.6); POTASSIUM 3.8 mmol/L (3.5-5.0); SODIUM 135 mmol/L (135-145); TOTAL PROTEIN 6.8 g/dL (6.7-8.2); TRIGLYCERIDES 148 mg/dL; VLDL CHOLESTEROL 30 mg/dL
[2020-09-25 15:21] LABS: THYROID STIMULATING HORMONE 5.92 uIU/mL (0.34-5.60)
[2020-09-25 15:55] LABS: FREE T4 (FREE THYROXINE) 0.8 ng/dL (0.58-1.64)
[2020-09-25 20:35] LABS: ESTIMATED AVERAGE GLUCOSE 151 mg/dL (70-100); HEMOGLOBIN A1c% 6.9 % (4.27-6.07)
== END 2020-09-25 10:22 | disposition home or self-care (01) ==
LOC: LAB.S 10:21
PROVIDERS: ATTEND Physician Assistant
DX: Z00.00 Encounter for general adult medical examination without abnormal findings (principal); E11.9 Type 2 diabetes mellitus without complications; I10 Essential (primary) hypertension; E78.5 Hyperlipidemia, unspecified
CPT/HCPCS: 36415; 80053; 80061; 82043; 82570; 83036; 83721; 84153; 84439; 84443; 85025

== ENCOUNTER 2021-08-03 10:59 | Outpatient (CLI) | payer MEDICARE ==
[2021-08-03 14:49] LABS: CALCIUM 9.9 mg/dL (8.5-10.3); CREATININE 0.9 mg/dL (0.6-1.2)
[2021-08-03 15:35] LABS: CREATININE,URINE 78.4 mg/dL; MICROALBUM/CREATININE RATIO,UR 3.8 ug/mg (<30.0); MICROALBUMIN,URINE 0.3 mg/dL (0-300.0)
[2021-08-03 19:55] LABS: ESTIMATED AVERAGE GLUCOSE 174 mg/dL (70-100); HEMOGLOBIN A1c% 7.7 % (4.27-6.07)
== END 2021-08-03 11:00 | disposition home or self-care (01) ==
LOC: LAB.S 10:59
PROVIDERS: ATTEND Registered Nurse
DX: E11.9 Type 2 diabetes mellitus without complications (principal); Z79.4 Long term (current) use of insulin
CPT/HCPCS: 36415; 80048; 82043; 82570; 83036

== ENCOUNTER 2022-05-10 13:43 | Outpatient (CLI) | payer MEDICARE ==
[2022-05-10 20:32] LABS: ALBUMIN/GLOBULIN RATIO 1.6 (1.0-2.2); ALKALINE PHOSPHATASE 60 IU/L (42-121); ALT ALANINE AMINOTRANSFERASE 31 IU/L (10-60); AST ASPARTATE AMINOTRANSFERASE 30 IU/L (10-42); BILIRUBIN,TOTAL 0.6 mg/dL (0.2-1.0); BUN - BLOOD UREA NITROGEN 13 mg/dL (6-20); CALCIUM 10.1 mg/dL (8.5-10.3); CARBON DIOXIDE - CO2 23 mmol/L (21-32); CHLORIDE 106 mmol/L (101-111); CHOL/HDL RATIO 3.1 (<5.0); CHOLESTEROL 89 mg/dL; CREATININE 0.9 mg/dL (0.6-1.2); GFR - MDRD 84 (>89); GLUCOSE 176 mg/dL (70-100); HDL CHOLESTEROL 29 mg/dL; LDL CHOLESTEROL,CALCULATED 45 mg/dL; LDL/HDL RATIO 1.6 (<3.6); POTASSIUM 3.7 mmol/L (3.5-5.0); SODIUM 136 mmol/L (135-145); TOTAL PROTEIN 6.5 g/dL (6.7-8.2); TRIGLYCERIDES 76 mg/dL; VLDL CHOLESTEROL 15 mg/dL
[2022-05-10 20:44] LABS: THYROID STIMULATING HORMONE 3.74 uIU/mL (0.34-5.60)
[2022-05-10 21:22] LABS: ESTIMATED AVERAGE GLUCOSE 157 mg/dL (70-100); HEMOGLOBIN A1c% 7.1 % (4.27-6.07)
== END 2022-05-10 13:44 | disposition home or self-care (01) ==
LOC: LAB.S 13:43
PROVIDERS: ATTEND Registered Nurse
DX: E11.9 Type 2 diabetes mellitus without complications (principal); I10 Essential (primary) hypertension; E78.5 Hyperlipidemia, unspecified; Z12.5 Encounter for screening for malignant neoplasm of prostate; Z79.4 Long term (current) use of insulin
CPT/HCPCS: 36415; 80053; 80061; 83036; 84443; G0103; 83721; 84153

== ENCOUNTER 2022-09-08 08:34 | Outpatient (CLI) | payer MEDICARE ==
[2022-09-08 14:50] LABS: ALBUMIN 3.7 g/dL (3.2-5.5); ALBUMIN/GLOBULIN RATIO 1.3 (1.0-2.2); ALKALINE PHOSPHATASE 72 IU/L (42-121); ALT ALANINE AMINOTRANSFERASE 45 IU/L (10-60); AST ASPARTATE AMINOTRANSFERASE 37 IU/L (10-42); BILIRUBIN,TOTAL 0.7 mg/dL (0.2-1.0); BUN - BLOOD UREA NITROGEN 13 mg/dL (6-20); CALCIUM 9.6 mg/dL (8.5-10.3); CARBON DIOXIDE - CO2 27 mmol/L (21-32); CHLORIDE 113 mmol/L (101-111); CHOL/HDL RATIO 2.8 (<5.0); CHOLESTEROL 71 mg/dL; CREATININE 0.9 mg/dL (0.6-1.2); GFR - MDRD 84 (>89); GLUCOSE 174 mg/dL (70-100); HDL CHOLESTEROL 25 mg/dL; LDL CHOLESTEROL,CALCULATED 33 mg/dL; LDL/HDL RATIO 1.3 (<3.6); SODIUM 143 mmol/L (135-145); THYROID STIMULATING HORMONE 8.59 uIU/mL (0.34-5.60); TOTAL PROTEIN 6.5 g/dL (6.7-8.2); TRIGLYCERIDES 65 mg/dL; VLDL CHOLESTEROL 13 mg/dL
[2022-09-08 15:41] LABS: FREE T4 (FREE THYROXINE) 0.73 ng/dL (0.58-1.64)
[2022-09-08 19:57] LABS: ESTIMATED AVERAGE GLUCOSE 148 mg/dL (70-100); HEMOGLOBIN A1c% 6.8 % (4.27-6.07)
== END 2022-09-08 08:35 | disposition home or self-care (01) ==
LOC: LAB.S 08:34
PROVIDERS: ATTEND Registered Nurse
DX: I10 Essential (primary) hypertension (principal); E11.9 Type 2 diabetes mellitus without complications; E78.5 Hyperlipidemia, unspecified; Z12.5 Encounter for screening for malignant neoplasm of prostate; Z79.4 Long term (current) use of insulin
CPT/HCPCS: 36415; 80053; 80061; 83036; 84439; 84443; G0103; 83721; 84153

== ENCOUNTER 2022-09-12 05:57 | Emergency (ER) | payer MEDICARE ==
--- NOTE | 2022-09-12 07:01 | ED Physician Documentation ---
PD HPI CHEST PAIN - Stated complaint Stated Complaint: LFT LEG PX/CHEST TIGHTNESS - Chief complaint Chief Complaint: Cardiac - History obtained from History obtained from: Patient - History of Present Illness Timing - onset: Today (Main issue presenting today as a feeling of irregular heartbeat and palpitations with some chest tightness but not pain. He had noted this last night and this morning. No feeling of lightheadedness nor dyspnea. Also complaining of month of low back to left leg pain and intermittent ERAZO/dizzy.), Last night Timing - onset during: Rest, Light activity Timing - duration: Days (1) Timing - details: Gradual onset, Still present, Waxing and waning Quality: No: Pressure, Tightness Radiation: No: Back, Abdominal Worsened by: No: Inspiration, Movement Associated symptoms: Palpitations. No: Shortness of air, Feeling faint / dizzy (he has had a month of intermittent feeling of "like I'm on a boat when walking" and some posterior headache. Not having lightheaded per se with the current palpitations.), Cough Similar symptoms before: No diagnosis (occasional extra beats in the past. Not had them frequent/clumped as he had this morning.) Recently seen: Not recently seen Review of Systems Constitutional: denies: Fever, Chills Nose: denies: Rhinorrhea / runny nose, Congestion Throat: denies: Sore throat Cardiac: reports: Palpitations. denies: Pedal edema, Calf pain Respiratory: denies: Cough GI: denies: Vomiting, Diarrhea, Bloody / black stool Neurologic: reports: Headache, Other (somewhat off balance walking the past month.). denies: Focal weakness, Numbness, Confused, Altered mental status, Head injury PD PAST MEDICAL HISTORY - Past Medical History Cardiovascular: None, Hypertension Respiratory: None Neuro: None Endocrine/Autoimmune: Type 2 diabetes GI: Pancreatitis, Other : Benign prostate hypertrophy, Frequency HEENT: None Psych: None Musculoskeletal: Gout Derm: None - Past Surgical History Past Surgical History: Yes General: Cholecystectomy HEENT: Cataracts Derm: Skin cancer surgery - Present Medications Home Medications: Ambulatory Orders Medication Instructions Recorded Confirmed Cholecalciferol (Vitamin D3) 1,000 unit PO DAILY 10/04/12 06/03/22 [Vitamin D3] Multivitamin [Multivitamins] 1 each PO DAILY 10/04/12 06/03/22 allopurinoL [Allopurinol] 300 mg PO DAILY 10/04/12 06/03/22 Insulin NPH Human Isophane 70 unit SQ BID 02/12/13 06/03/22 [Humulin N] Atorvastatin Calcium 20 mg PO QPM 10/23/15 06/03/22 Insulin Regular, Human [Humulin R] 40 unit SUBQ QID 10/23/15 06/03/22 Sildenafil Citrate 20 - 40 mg PO DAILY 10/23/15 06/03/22 Metoprolol Tartrate [Lopressor] 25 mg PO BID 10/21/17 06/03/22 Dicyclomine HCl 20 mg PO TID 01/30/18 06/03/22 Omeprazole 20 mg PO QDAC 06/07/19 06/03/22 Folic Acid 1 tab ORAL DAILY 06/24/20 06/03/22 Calcium Carbonate [Tums (Calcium 500 mg PO ONCE 09/12/20 06/03/22 Carbonate 500mg)] Zinc Gluconate [Zinc] 50 mg PO DAILY 09/12/20 06/03/22 Diclofenac Sodium [Voltaren 20 gm TP DAILY 11/04/20 06/03/22 Arthritis Pain] Magnesium Oxide [Magnesium] 500 mg PO DAILY 11/04/20 06/03/22 Lisinopril [Zestril] 2.5 mg PO DAILY 02/23/21 06/03/22 Pyridoxine HCl (Vitamin B6) 100 mg PO DAILY 02/23/21 06/03/22 [Vitamin B6] Atenolol [Tenormin] 50 mg PO DAILY 02/08/22 06/03/22 Loratadine [Claritin] 10 mg PO DAILY 06/03/22 06/03/22 Meclizine HCl [Motion Sickness] 25 mg PO BID #20 tablet 09/12/22 Meloxicam [Mobic] 7.5 mg PO BID 10 Days #20 tablet 09/12/22 - Allergies Allergies/Adverse Reactions: Allergies Allergy/AdvReac Type Severity Reaction Status Date / Time Milk Containing Products Allergy Emesis Verified 09/12/20 10:31 (Dairy) [Milk Containing Products] tamsulosin [From Flomax] Allergy Respiratory Verified 09/12/20 10:31 - Social History Does the pt smoke?: No Smoking Status: Never smoker Does the pt drink ETOH?: No Does the pt have substance abuse?: No - Immunizations Immunizations are current?: Yes - POLST Patient has POLST: No POLST Status: Full Code PD ED PE NORMAL - Vitals Vital signs reviewed: Yes - General General: Alert and oriented X 3, No acute distress, Well developed/nourished - Neck Neck: Supple, no meningeal sign, No adenopathy, No bruit - Cardiac Cardiac: RRR (Initial monitor showing frequent PVCs and PACs. Briefly atrial bigeminy.), Other (perhaps 1/6 murmur right parasternal without radiation. ) - Respiratory Respiratory: No respiratory distress, Clear bilaterally - Abdomen Abdomen: Soft, Non tender - Back Back: No CVA TTP, No spinal TTP - Derm Derm: Normal color, Warm and dry - Extremities Extremities: Normal ROM s pain, No edema, No calf tenderness / cord - Neuro Neuro: Alert and oriented X 3, No motor deficit, No sensory deficit, Normal speech Results - Vitals Vitals: Vital Signs - 24 hr 09/12/22 09/12/22 09/12/22 06:07 06:22 06:40 Temperature 36.5 C Heart Rate 43 L 73 Respiratory 16 16 Rate Blood Pressure 149/46 H 138/74 H O2 Saturation 97 98 09/12/22 09/12/22 09/12/22 07:12 08:19 08:48 Temperature Heart Rate 75 65 64 Respiratory 16 16 16 Rate Blood Pressure 138/74 H 122/72 O2 Saturation 94 96 96 09/12/22 09:07 Temperature Heart Rate 67 Respiratory 17 Rate Blood Pressure 117/78 O2 Saturation 94 Oxygen O2 Source Room air - EKG (time done) 06:13 EKG releavant findings:: EKG personally interpreted by author of this note. Relevant findings are: Rate: Rate (enter#) (85) Rhythm: NSR, Other (frequent PVCs) [place]: Normal Intervals: Normal SC QRS: Normal Ischemia: Normal ST segments. No: ST elevation c/w ischemia, ST depression - Labs Labs: Laboratory Tests 09/12/22 09/12/22 09/12/22 06:59 06:59 06:59 WBC 5.3 RBC 4.20 L Hgb 13.7 L Hct 40.4 L MCV 96.2 H MCH 32.6 H MCHC 33.9 RDW 14.9 Plt Count 81 L MPV 11.1 Neut # (Auto) 2.9 Lymph # (Auto) 1.9 [place] # (Auto) 0.4 Eos # (Auto) 0.1 Baso # (Auto) 0.0 Absolute Nucleated RBC 0.00 Nucleated RBC % 0.0 Sodium 141 Potassium 3.8 Chloride 111 Carbon Dioxide 24 Anion Gap 6.0 BUN 11 Creatinine 0.9 Estimated GFR (MDRD) 84 L Glucose 198 H Calcium 9.4 Magnesium Iron TIBC % Saturation Transferrin Total Bilirubin 0.7 AST 44 H ALT 53 Alkaline Phosphatase 70 Troponin I High Sens 10.0 Total Protein 6.1 L Albumin 3.6 Globulin 2.5 Albumin/Globulin Ratio 1.4 Lipase 09/12/22 06:59 WBC RBC Hgb Hct MCV MCH MCHC RDW Plt Count MPV Neut # (Auto) Lymph # (Auto) [place] # (Auto) Eos # (Auto) Baso # (Auto) Absolute Nucleated RBC Nucleated RBC % Sodium Potassium Chloride Carbon Dioxide Anion Gap BUN Creatinine Estimated GFR (MDRD) Glucose Calcium Magnesium 1.6 L Iron 73 TIBC 265 % Saturation 28 Transferrin 189 Total Bilirubin AST ALT Alkaline Phosphatase Troponin I High Sens Total Protein Albumin Globulin Albumin/Globulin Ratio Lipase - Rads (name of study) head CT Relevant Findings:: Prelim report reviewed (Age-related senescent changes without any acute abnormalities on the head CT.), EMP independent interpretation of test, See rad report PD Medical Decision Making - ED course Complexity details: reviewed results, considered differential (The patient presents with several different complaints. The main impetus for coming to the ER tonight was an irregularity feeling of his heartbeat and a discomfort. He denies pain in the chest per se.), d/w patient Reviewed Lab Results: His magnesium is slightly low at 1.6. This could be affecting his conductive system. Potassium is normal. His symptoms seem to relate to PACs and PVCs. It is certainly possible he had other rhythm such as A-fib earlier today though he describes a similar feeling now with the monitor just showing the above. His primary care may want to do a extended heart monitor such as a Zio patch over a week to ensure no other rhythm disturbance. He states he has been drinking a little bit more coffee recently. He denies alcohol. He does take a magnesium supplement. This can be increased. I believe unrelated complaints are the headache and feeling slightly off balance over the last month. The basic CT scan is normal. I did not feel urgency and timing for other imaging such as MRI. This can be done outpatient if needed. Otherwise more likely to be in her ear as he had some congestion lately. We can try meclizine and see if his symptoms are better overall. The left iliac and lumbar pain radiating down the leg sound sciatic in nature. We can try some anti-inflammatories. CT of the lumbar area did not show any acute bony abnormalities nor misalignment to account for the symptoms. This imaging was done because of his history of some myelodysplastic disease in the past and ensuring no acute compressive deformities etc. If percent distant symptoms, his primary care could do physical therapy and even advanced imaging such as MRI if they felt appropriate. ED course: He has an irregularity feeling of his heart rhythm without chest pain per se. He denied dyspnea nor lightheadedness. Other complaint was several weeks or more of intermittent left posterior leg pain from the iliac area down the leg. No noted trauma. He states is an aching feeling. He has chronic neuropathy in the lower legs so has not noted any change in numbness per se. Denies weakness of the legs. He also complains of some occipital area pressure type discomfort intermittently over a few weeks as well and a feeling of "being on a boat" when he walks. He denies vertigo per se. He has had some decreased hearing on the left. He states he has been drinking a little bit more coffee than usual lately. He denies other change in medicines. He denies alcohol use. His symptoms sound unrelated to each other in the sense of the posterior pelvic and leg pain sounds sciatic. I would not see connecting this to the healing of some occipital intermittent headache and feeling of slightly off balance. He states his dexterity and hand and leg use are normal and no other focal defici ts. Consideration could be for MRI of the head through his primary care if persistent symptoms with consideration of small area findings such as lacunar infarcts or MS or such. MRI is unavailable here today and I do not feel he needs transferring for acute imaging. His palpitations seem unrelated to the other complaints but were addressed with regard to EKG and electrolytes. Departure - Departure Disposition: 01 Home, Self Care Clinical Impression: Symptomatic PVCs, Palpitations, Light-headed feeling, Hypomagnesemia Low back pain Qualifiers: Chronicity: acute Back pain laterality: left Sciatica presence: with sciatica Sciatica laterality: sciatica of left side Qualified Code(s): M54.42 - Lumbago with sciatica, left side Condition: Stable Record reviewed to determine appropriate education?: Yes Instructions: ED Palpitations, ED Sciatica Prescriptions: Meloxicam [Mobic] 7.5 mg PO BID 10 Days #20 tablet Meclizine HCl [Motion Sickness] 25 mg PO BID #20 tablet Comments: Your EKG and heart monitor are showing frequent PVCs which are extra beats. They actually have normalized a bit now to just a regular rhythm. This could relate to hydration levels. Caffeine and alcohol can be irritants that make PVCs more common. Electrolytes are lay as well and your magnesium level is a little bit low at 1.6. I would double your magnesium supplement at home for the next week to 10 days and then back to the regular dose. Minimize caffeine. Stay well-hydrated otherwise. Regarding your leg pain, it sounds likely to be a nerve irritation called sciatic. Your CT of the lumbar area shows some arthritic changes but no notably significant disc protrusions or bone lesions. I would suggest some regular anti-inflammatories twice daily for the next 7 to 10 days with food and see if that helps overall. Still add Tylenol every 4-6 hours if needed for pain. Your head CT did not show any obvious acute abnormalities. Your feeling of being off balance like you are on a boat, may relate to your in your ear and we can try meclizine and motion sickness medicine twice daily for the next week as well and see if overall improvement. Otherwise follow-up with your primary care regarding further evaluation. Regarding your heart palpitations, your primary care may want to have you wear a recording heart monitor device for a week to ensure there is no other more significant abnormalities such as atrial fibrillation etc. Discharge Date/Time: 09/12/22 09:39
[2022-09-12 07:16] LABS: BASOPHILS % (AUTO) 0.6 %; EOSINOPHILS # (AUTO) 0.1 10^3/uL (0.0-0.7); EOSINOPHILS % (AUTO) 1.7 %; HCT - HEMATOCRIT 40.4 % (42.0-52.0); HGB - HEMOGLOBIN 13.7 g/dL (14.0-18.0); LYMPHOCYTES # (AUTO) 1.9 10^3/uL (1.5-3.5); LYMPHOCYTES % (AUTO) 36.1 %; MEAN CORPUSCULAR HEMOGLOBIN 32.6 pg (27.0-31.0); MEAN CORPUSCULAR HGB CONC 33.9 g/dL (32.0-36.0); MEAN CORPUSCULAR VOLUME 96.2 fL (80.0-94.0); MEAN PLATELET VOLUME 11.1 fL (7.4-11.4); MONOCYTES # (AUTO) 0.4 10^3/uL (0.0-1.0); MONOCYTES % (AUTO) 6.7 %; NEUTROPHILS # (AUTO) 2.9 10^3/uL (1.5-6.6); NEUTROPHILS % (AUTO) 54.5 %; PLT - PLATELET COUNT 81 10^3/uL (130-450); RED CELL DISTRIBUTION WIDTH 14.9 % (12.0-15.0); WHITE BLOOD COUNT 5.3 x10^3/uL (4.8-10.8)
[2022-09-12 07:17] LABS: ALBUMIN 3.6 g/dL (3.2-5.5); ALBUMIN/GLOBULIN RATIO 1.4 (1.0-2.2); BILIRUBIN,TOTAL 0.7 mg/dL (0.2-1.0); CALCIUM 9.4 mg/dL (8.5-10.3); CREATININE 0.9 mg/dL (0.6-1.2); POTASSIUM 3.8 mmol/L (3.5-5.0); TOTAL PROTEIN 6.1 g/dL (6.7-8.2)
[2022-09-12] MEDS ORDERED: SODIUM CHLORIDE 0.9% 500 ML IV STA (07:46)
[2022-09-12] MEDS ORDERED: KETOROLAC 15 MG/ML VIAL IVP STA (07:47)
[2022-09-12 08:07] LABS: MAGNESIUM 1.6 mg/dL (1.7-2.8)
[2022-09-12] MEDS ORDERED: MAGNESIUM SULFATE 2 GRAM 2 GM/50 ML BAG IV ONE (08:29)
--- NOTE | 2022-09-12 08:34 | CT Report ---
PROCEDURE: HEAD WO INDICATIONS: posterior headache and feeling off balance TECHNIQUE: Noncontrast 4.5 mm thick angled axial sections acquired from the foramen magnum to the vertex. For r adiation dose reduction, the following was used: automated exposure control, adjustment of mA and/or kV according to patient size. COMPARISON: None. FINDINGS: Image quality: Excellent. CSF spaces: Basal cisterns are patent. No extra-axial fluid collections. Ventricles are normal in size and shape. Brain: No midline shift. No intracranial masses or hemorrhage. No mass effect. Crook-white matter i nterface is normal. There cerebral volume loss for age with resultant ventricular and sulcal prominen ce. There are periventricular and deep white matter chronic small vessel ischemic changes. Atheroscle rotic calcifications are noted in the intracranial segments of the bilateral internal carotid arterie s. Skull and face: Calvarium and visualized facial bones are intact, without suspicious lesions. Sinuses: Visualized sinuses and mastoids are clear. IMPRESSION: CT head without acute intracranial abnormalities or acute calvarial fractures. Age-related senescent changes and sequela of chronic small vessel ischemic disease. Reviewed by: Mark Anguiano MD on 09/12/2022 8:33 AM PDT Approved by: Mark Anguiano MD on 09/12/2022 8:33 AM PDT Station ID: [id number]
--- NOTE | 2022-09-12 08:48 | CT Report ---
PROCEDURE: LUMBAR SPINE WO INDICATIONS: left posterior leg pain hip to leg TECHNIQUE: Noncontrast 3 mm thick sections acquired from the T12 level to the sacrum. Sagittal and coronal refo rmats were constructed. For radiation dose reduction, the following was used: automated exposure co ntrol, adjustment of mA and/or kV according to patient size. COMPARISON: FINDINGS: Image quality: Excellent. Bones: There is normal bony alignment. No acute vertebral body compression fractures. No suspiciou s lytic or blastic bony lesions. Multilevel spondylitic changes with inferior endplate Schmorl's nod es identified at L2 and T10. Central spinal caliber is of normal overall caliber. No pars defects. T12-L1: No significant neuroforaminal stenosis or spinal canal stenosis. L1-L2: Mild degenerative endplate changes. No significant disc height loss. Mild bilateral facet a rthropathy. No significant bony foraminal stenosis. No significant spinal canal stenosis. L2-L3: Degenerative endplate changes. Minimal bilateral facet arthropathy. Small symmetric disc bu lge. No significant neuroforaminal stenosis or spinal canal stenosis. L3-L4: Degenerative endplate changes. Small disc bulge. Mild bilateral facet arthropathy. Mild left greater than right bilateral neuroforaminal stenosis. There is apparent effacement of the left subar ticular zone. No significant spinal canal stenosis. L4-L5: Moderate degenerative endplate changes. Mild disc height loss. Prominent endplate osteophyte formation. Moderate bilateral facet arthropathy. Symmetric disc bulge. Findings result in effacement of the central and bilateral subarticular zones. Mild-moderate right and at least moderate left bila teral neuroforaminal stenosis. Mild spinal canal stenosis. L5-S1: Moderate degenerative endplate changes and significant disc height loss. Moderate bilateral facet arthropathy more pronounced on the left. Symmetric disc bulge. Moderate bilateral neuroforamina l stenosis. Minimal spinal canal stenosis Soft tissues: Atherosclerosis. Nonobstructive tiny punctate right renal stone. No retroperitoneal mas ses or hematomas. Visualized aorta is normal in caliber. IMPRESSION: Lumbar spine without acute fracture or malalignment. Moderate multilevel spondylosis of the lumbar spine most severe at L4-5 and L5-S1 as described above. Spondylitic changes appear to be slightly more pronounced on the left side. Other chronic findings as above. Reviewed by: Mark Anguiano MD on 09/12/2022 8:47 AM PDT Approved by: Mark Anguiano MD on 09/12/2022 8:47 AM PDT Station ID: [id number]
[2022-09-12 09:09] VITALS: BP 117/78
== END 2022-09-12 09:39 | disposition home or self-care (01) ==
LOC: ED 05:57
DX: I49.3 Ventricular premature depolarization (principal); R00.2 Palpitations; R42 Dizziness and giddiness; E83.42 Hypomagnesemia; M54.42 Lumbago with sciatica, left side; R26.81 Unsteadiness on feet; R51.9 Headache, unspecified; E11.42 Type 2 diabetes mellitus with diabetic polyneuropathy; Z79.4 Long term (current) use of insulin; Z86.2 Personal history of diseases of the blood and blood-forming organs and certain disorders involving the immune mechanism
CPT/HCPCS: 36415; 80053; 83540; 83690; 83735; 84466; 84484; 85025; 93005; 96365; 96375; 99284

== ENCOUNTER 2023-02-23 12:42 | Emergency (ER) | payer MEDICARE ==
[2023-02-23] MEDS ORDERED: PROPARACAINE 0.5% OPHTH DROPS 15 ML EACHEYE STA (12:46)
[2023-02-23] MEDS ORDERED: SODIUM CHLORIDE 0.9% 1,000 ML IV STA (12:56)
[2023-02-23 13:09] LABS: BASOPHILS % (AUTO) 0.5 %; EOSINOPHILS # (AUTO) 0.1 10^3/uL (0.0-0.7); EOSINOPHILS % (AUTO) 1.3 %; HCT - HEMATOCRIT 46.4 % (42.0-52.0); HGB - HEMOGLOBIN 15.6 g/dL (14.0-18.0); LYMPHOCYTES % (AUTO) 31.2 %; MEAN CORPUSCULAR HGB CONC 33.6 g/dL (32.0-36.0); MEAN CORPUSCULAR VOLUME 95.3 fL (80.0-94.0); MEAN PLATELET VOLUME 10.1 fL (7.4-11.4); MONOCYTES # (AUTO) 0.4 10^3/uL (0.0-1.0); MONOCYTES % (AUTO) 6.9 %; NEUTROPHILS # (AUTO) 3.7 10^3/uL (1.5-6.6); NEUTROPHILS % (AUTO) 59.8 %; PLT - PLATELET COUNT 83 10^3/uL (130-450); RED BLOOD COUNT 4.87 10^6/uL (4.70-6.10); RED CELL DISTRIBUTION WIDTH 14.5 % (12.0-15.0); WHITE BLOOD COUNT 6.3 x10^3/uL (4.8-10.8)
[2023-02-23 13:20] LABS: INR 1.2 (0.8-1.2); PT - PROTHROMBIN TIME 13.1 secs (9.9-12.6)
[2023-02-23 13:21] LABS: ALBUMIN 4.5 g/dL (3.2-5.5); ALKALINE PHOSPHATASE 67 IU/L (42-121); ALT ALANINE AMINOTRANSFERASE 39 IU/L (10-60); AST ASPARTATE AMINOTRANSFERASE 31 IU/L (10-42); BILIRUBIN,TOTAL 0.6 mg/dL (0.2-1.0); BUN - BLOOD UREA NITROGEN 17 mg/dL (6-20); CALCIUM 10.5 mg/dL (8.5-10.3); CARBON DIOXIDE - CO2 27 mmol/L (21-32); CHLORIDE 108 mmol/L (101-111); CREATININE 0.8 mg/dL (0.6-1.3); GFR - MDRD 96 (>89); GLUCOSE 123 mg/dL (74-104); POTASSIUM 3.5 mmol/L (3.5-4.5); SODIUM 140 mmol/L (135-145); TOTAL PROTEIN 6.7 g/dL (6.4-8.9)
[2023-02-23 13:23] LABS: LIPASE < 10 U/L (11-82)
[2023-02-23] MEDS ORDERED: iohexoL-300 100 ML VIAL IVP ONE (13:30)
--- NOTE | 2023-02-23 13:35 | ED Physician Documentation ---
PD HPI FOCAL NEURO - Stated complaint Stated Complaint: EYE PRESSURE/PX,DISORIENTED - Chief complaint Chief Complaint: Neuro - History obtained from History obtained from: Patient, Family - Additional information Additional information: The patient is brought to the emergency department by his for chief complaint of visual changes and confusion. The patient has a long and complicated history including leukemia, MDS, And diabetes, among other things. 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 He has not had any visual changes in his right eye, but this morning, the patient's states that he got up from bed and seemed fine and then went back to bed. When he got up after that, around 11:00 this morning, he seemed to be having trouble seeing. He was stumbling around the malone feeling for the gomez and could not see to put his underwear on properly or take a drink out of a cup. He was able to do fine with this things once he could angle to see if he is doing but the states that he seems somewhat confused about what he was doing even aside from the visual issues. Patient denies any focal weakness. He states that he does not feel like his vision is different when he covers his left eye and looks out of his right eye. He has a headache on his right side with pressure behind his right eye. He has no history of glaucoma that he knows of. He states he seems to see some floaters in his right eye vision. No other complaints at this time. No speech or swallowing difficulties. No numbness that is new. PD PAST MEDICAL HISTORY - Past Medical History Past Medical History: Yes Cardiovascular: None, Hypertension Respiratory: None Neuro: None Endocrine/Autoimmune: Type 2 diabetes GI: Pancreatitis, Other : Benign prostate hypertrophy, Frequency HEENT: None Psych: None Musculoskeletal: Gout Derm: None - Past Surgical History Past Surgical History: Yes General: Cholecystectomy HEENT: Cataracts Derm: Skin cancer surgery - Present Medications Home Medications: Ambulatory Orders Medication Instructions Recorded Confirmed Cholecalciferol (Vitamin D3) 1,000 unit PO DAILY 10/04/12 11/01/22 [Vitamin D3] Multivitamin [Multivitamins] 1 each PO DAILY 10/04/12 11/01/22 allopurinoL [Allopurinol] 300 mg PO DAILY 10/04/12 11/01/22 Insulin NPH Human Isophane 70 unit SQ BID 02/12/13 11/01/22 [Humulin N] Atorvastatin Calcium 20 mg PO QPM 10/23/15 11/01/22 Insulin Regular, Human [Humulin R] 40 unit SUBQ QID 10/23/15 11/01/22 Sildenafil Citrate 20 - 40 mg PO DAILY 10/23/15 11/01/22 Metoprolol Tartrate [Lopressor] 25 mg PO BID 10/21/17 11/01/22 Dicyclomine HCl 20 mg PO TID 01/30/18 11/01/22 Omeprazole 20 mg PO QDAC 06/07/19 11/01/22 Folic Acid 1 tab ORAL DAILY 06/24/20 11/01/22 Calcium Carbonate [Tums (Calcium 500 mg PO ONCE 09/12/20 11/01/22 Carbonate 500mg)] Zinc Gluconate [Zinc] 50 mg PO DAILY 09/12/20 11/01/22 Diclofenac Sodium [Voltaren 20 gm TP DAILY 11/04/20 11/01/22 Arthritis Pain] Magnesium Oxide [Magnesium] 1,000 mg PO DAILY 11/04/20 11/01/22 Lisinopril [Zestril] 2.5 mg PO DAILY 02/23/21 11/01/22 Pyridoxine HCl (Vitamin B6) 100 mg PO DAILY 02/23/21 11/01/22 [Vitamin B6] Atenolol [Tenormin] 50 mg PO DAILY 02/08/22 11/01/22 Loratadine [Claritin] 10 mg PO DAILY 06/03/22 11/01/22 Meclizine HCl [Motion Sickness] 25 mg PO BID #20 tablet 09/12/22 11/01/22 Meloxicam [Mobic] 7.5 mg PO BID 10 Days #20 tablet 09/12/22 11/01/22 - Allergies Allergies/Adverse Reactions: Allergies Allergy/AdvReac Type Severity Reaction Status Date / Time Milk Containing Products Allergy Emesis Verified 02/23/23 12:47 (Dairy) [Milk Containing Products] tamsulosin [From Flomax] Allergy Respiratory Verified 02/23/23 12:47 - Social History Does the pt smoke?: No Smoking Status: Never smoker Does the pt drink ETOH?: No Does the pt have substance abuse?: No - Immunizations Immunizations are current?: Yes - POLST Patient has POLST: No POLST Status: Full Code PD ED PE NORMAL - Vitals Vital signs reviewed: Yes - General General: No acute distress, Well developed/nourished, Other (Alert and approp riate. Answers questions appropriately and follows commands appropriately.) - HEENT HEENT: Atraumatic, EOMI, Moist mucous membranes, Other (Right pupil is round and reactive to light. Patient is not able to comply very well for funduscopic exam and so findings are limited. No obvious hemorrhage or retinal detachment. Tonometry with Andrea-Pen reveals an average over 10 taps of 27 mmHg in the right eye.) - Neck Neck: Supple, no meningeal sign - Cardiac Cardiac: RRR, No murmur - Respiratory Respiratory: No respiratory distress, Clear bilaterally - Abdomen Abdomen: Soft, Non tender, Non distended - Derm Derm: Normal color, Warm and dry, No rash - Extremities Extremities: No deformity, No edema - Neuro Neuro: Alert and oriented X 3, Other (See free text exam below.) - Psych Psych: Normal mood, Normal affect - Free text exam Free text exam: Patient has intact, 5+ strength in all 4 extremities with slightly decreased strength on the left compared to the right. There is some mild neglect of the left, though when the patient's attention is brought to the left, he is able to slowly get up to 5+ strength in both his upper extremity and lower extremity. This is in contrast to the right side, in which the patient instantly recognizes the side and briskly responds to commands. He is able to read the cards appropriately, but is unable to see my finger pointing from the left side at the word I want him to read. He also on the sentence card leaves off the left most words and seems unable to see them. When looking at the action picture as well as the object naming picture, he is able to appropriately describe the right side of each page but cannot see the left side of each page. Otherwise neurologic exam is intact. NIHSS - Time Time: 13:25 - Level of Consciousness Level of consciousness: (0) Alert, Keenly responsive LOC Questions: (0) Answers both Q's correct LOC Commands: (0) Performs both correctly - Gaze Best Gaze: (0) Normal - Visual Visual: (1) Partial hemianopia - Facial Palsy Facial Palsy: (0) Normal, symmetrical movement - Motor Arms (both separate) Motor Arm (right): (0) No drift Motor Arm (left): (0) No drift - Motor Legs (both separate) Motor Leg (right): (0) No drift Motor Leg (left): (0) No drift - Limb Ataxia Limb Ataxia: (0) Absent (Excellent thank you this part of the exam is somewhat limited, secondary to the patient's visual deficits.) - Sensory Sensory: (0) Normal - Best Language Best Language: (0) No aphasia - Dysarthria Dysarthria: (0) Normal - Extinction and Inattention (formally neg Extinction and inattention: (1) Visual,tactile,auditory,spatial, or personal inattention (Left-sided neglect.) - Total Score/Results Total Score/Result: 2 Results - Vitals Vitals: Vital Signs - 24 hr 02/23/23 02/23/23 02/23/23 12:47 13:05 14:00 Temperature 36.5 C Heart Rate 69 74 74 Respiratory 16 18 17 Rate Blood Pressure 140/67 H 156/83 H 138/75 H O2 Saturation 100 96 99 Oxygen O2 Source Room air - EKG (time done) 1345 EKG releavant findings:: EKG personally interpreted by author of this note. Relevant findings are: Rate: Rate (enter#) (72) Rhythm: NSR [place]: LAD (borderline) Intervals: Prolonged [place] QRS: Normal Ischemia: Normal ST segments Compare to prior EKG: Old EKG unavailable Computer interpretation: Agree with computer - Labs Labs: Laboratory Tests 02/23/23 02/23/23 02/23/23 13:02 13:02 13:02 WBC 6.3 RBC 4.87 Hgb 15.6 Hct 46.4 MCV 95.3 H MCH 32.0 H MCHC 33.6 RDW 14.5 Plt Count 83 L MPV 10.1 Neut # (Auto) 3.7 Lymph # (Auto) 2.0 Humphreys # (Auto) 0.4 Eos # (Auto) 0.1 Baso # (Auto) 0.0 Absolute Nucleated RBC 0.00 Nucleated RBC % 0.0 PT 13.1 H INR 1.2 Sodium 140 Potassium 3.5 Chloride 108 Carbon Dioxide 27 Anion Gap 5.0 L BUN 17 Creatinine 0.8 Estimated GFR (MDRD) 96 Glucose 123 H Calcium 10.5 H Total Bilirubin 0.6 AST 31 ALT 39 Alkaline Phosphatase 67 Total Protein 6.7 Albumin 4.5 Globulin 2.2 Albumin/Globulin Ratio 2.0 Lipase < 10 L - Rads (name of study) CT head Relevant Findings:: Final report received, See rad report (No intracranial hemorrhage) CTA head and neck Relevant Findings:: Final report received, See rad report (Multiple areas of stenosis up to 50% in carotids, with near occlusion of vertebral artery, acuity unclear.) PD Medical Decision Making - ED course Complexity details: reviewed results, re-evaluated patient, considered differential, d/w patient ED course: The patient was evaluated immediately upon arrival in the emergency department. He had some features which indicated a likely eye source of his symptoms, but the fact that he was somewhat neglectful of the left side was a bit concerning. I went ahead and sent him for CT head and CTA of the head and neck. Laboratory studies were unremarkable. CT showed no intracranial hemorrhage. The patient did have multiple areas of stenosis up to 50% including both carotids and near occlusion of his vertebral artery from stenosis with out obvious complete oc clusion anywhere. I did perform a funduscopic exam but this was limited and I really could not tell if the patient had a retinal detachment or not. The patient was unable to fix his eyes on any particular spot and so I could not get a reliable look at his fundus. He was evaluated with tonometry as well and again, had somewhat of difficulty complying but ultimately, I was able to get a 10 tap average of 27. The patient needed for further evaluation with MRI, and I have ordered this at this time. The patient will be signed out to Dr. Campbell at change of shift, pending MRI and final disposition. Departure - Departure Forms: PCP List
--- NOTE | 2023-02-23 14:09 | CT Report ---
PROCEDURE: HEAD WO INDICATIONS: visual change, confusion TECHNIQUE: Noncontrast 4.5 mm thick angled axial sections acquired from the foramen magnum to the vertex. For r adiation dose reduction, the following was used: automated exposure control, adjustment of mA and/or kV according to patient size. COMPARISON: None. FINDINGS: Image quality: Excellent. CSF spaces: Basal cisterns are patent. No extra-axial fluid collections. Ventricles are normal in size and shape. Brain: No midline shift. No intracranial masses or hemorrhage. Crook-white matter interface is norm al. Skull and face: Calvarium and visualized facial bones are intact, without suspicious lesions. Sinuses: Visualized sinuses and mastoids are clear. IMPRESSION: No acute intracranial pathology. Reviewed by: Darryn Mejía on 02/23/2023 2:08 PM [facility] Approved by: Darryn Mejía on 02/23/2023 2:08 PM [facility] Station ID: [id number]
--- NOTE | 2023-02-23 14:12 | CT Report ---
PROCEDURE: CT Angio Head/Neck INDICATIONS: visual change, confusion TECHNIQUE: Pre-contrast 4.5 mm thick sections acquired from the foramen magnum to the vertex. After the adminis tration of intravenous contrast, 1 mm thick sections acquired from the aortic arch through the [place]. Post-contrast 4.5 mm thick sections then re-acquired from the foramen magnum to the vert ex. 3-dimensional iazzulz-gqqofvobz-oehrksowos (MIP) and/or volume rendering reformats were acquired of the central intracranial vasculature and neck separately. For radiation dose reduction, the foll owing was used: automated exposure control, adjustment of mA and/or kV according to patient size. COMPARISON: None FINDINGS: Image quality: Excellent. BRAIN: CSF spaces: Ventricles are normal in size and shape. Basal cisterns are patent. No extra-axial flu id collections. Brain: No midline shift. No intracranial bleeds or masses. Crook-white matter interface appears int act. Skull and face: Calvarium and facial bones appear intact, without suspicious lesions. Orbits appear normal. Sinuses: Sinuses and mastoids are clear. HEAD CT ANGIOGRAPHY: Anterior circulation: Intracranial internal carotid arteries have atherosclerotic calcifications thr oughout with no significant focal stenosis.. The flow within the paired anterior cerebral arteries i s normal and symmetric. The flow within the middle cerebral arteries is normal and symmetric. The a nterior communicating artery is seen. No aneurysms are seen. Posterior circulation: Visualized portions of the vertebral arteries demonstrate normal caliber, and join to form a normal appearing basilar artery. Flow within the posterior cerebral arteries is norm al and symmetric. No aneurysms are seen. NECK CT ANGIOGRAPHY: Carotid system: The great vessels demonstrate a conventional anatomy as they arise from the aortic a [facility]. The origins of the common carotid arteries appear patent. The common carotid arteries demonstr ate normal caliber and courses. Atherosclerotic calcifications are present within both carotid bulbs. On the right there is approximately 50% stenosis in the bulb. On the left there is no significant st enosis at the bulb. The internal carotid arteries demonstrate normal calibers and courses. Posterior circulation: The origins of the vertebral arteries both appear widely patent. The more bagley perior extracranial portions of both vertebral arteries also demonstrate normal courses and calibers. Both vertebral arteries have atherosclerotic calcifications. The intracranial left vertebral artery has a high-grade stenosis with near occlusion. The right vertebral artery has 50% stenosis.. They inna n to form a normal appearing basilar artery. Soft tissues: Visualized neck soft tissues demonstrate no suspicious abnormalities. Bones: No suspicious bony lesions. Visualized cervical spine appears normally aligned. IMPRESSION: 1. Atherosclerotic calcifications in the intracranial ICAs causing up to 50% stenosis. 2. Atherosclerotic calcifications in both bulbs causing 50% stenosis on the right and no significant stenosis on the left. 3. Atherosclerotic calcifications with approximately 50% stenosis in the right superior vertebral art rusty and high-grade near occlusion of the left vertebral artery. 4. Otherwise normal CTA head and neck. The estimate of stenosis included in the report of the imaging study was calculated using the NASCET method Reviewed by: Alejo Clemens on 02/23/2023 1:11 PM [facility] Approved by: Alejo Clemens on 02/23/2023 1:11 PM [facility] Station ID: [id number]
[2023-02-23 14:54] LABS: BILIRUBIN,URINE NEGATIVE (NEGATIVE); GLUCOSE, URINE (UA) NEGATIVE (NEGATIVE); KETONES,URINE (UA) NEGATIVE (NEGATIVE); LEUKOCYTE ESTERASE, URINE NEGATIVE (NEGATIVE); NITRITE,URINE NEGATIVE (NEGATIVE); OCCULT BLOOD,URINE TRACE-INTA (NEGATIVE); PROTEIN,URINE NEGATIVE (NEGATIVE); UROBILINOGEN,URINE 0.2 (NORMAL) E.U./dL (NORMAL)
[2023-02-23 14:58] LABS: CLARITY,URINE CLEAR (CLEAR)
--- NOTE | 2023-02-23 15:54 | MRI Report ---
PROCEDURE: BRAIN WO INDICATIONS: R eye visual compromise, L neglect TECHNIQUE: Noncontrast axial T1 spin echo, axial T2 fast spin echo, sagittal and axial FLAIR, coronal T2 fast sp in echo, axial gradient echo, axial diffusion and ADC through the brain. COMPARISON: Head CT dated 02/23/2023. FINDINGS: Image quality: Excellent. CSF Spaces: Basal cisterns are patent. No extra-axial fluid collections. Ventricles are normal in size and shape. Brain: No intracranial masses nor acute hemorrhage. There are a few adjacent regions of low gradient echo signal intensity within the right anterior tinajero radiata, spanning roughly 18 mm anteroposteri or. A few regions of low gradient echo signal intensity within the right parietal occipital lobe are present, spanning roughly 40 mm. There is mild cortical FLAIR signal elevation within the right poste rior lateral parietal lobe, as well as the right posterior temporal lobe, spanning roughly 60 mm diam eter, which demonstrates moderate diffusion signal elevation and low ADC map signal. Crook/white matte r interface is normal. Brainstem appears normalNo chronic ischemic insults. Normal intravascular fl ow voids are present. Skull and face: Calvarium has normal marrow signal. Orbits appear normal. Sinuses: Sinuses and mastoids are clear. IMPRESSION: 1. Late subacute hemorrhagic infarct within the right parietal occipital lobe and posterior temporal lobe. 2. Chronic hemorrhagic focus within the right anterior centrum semiovale. 3. Volume loss and small vessel ischemic disease. Reviewed by: Juli Layne MD on 02/23/2023 3:52 PM PST Approved by: Juli Layne MD on 02/23/2023 3:52 PM PST Station ID: [id number]
[2023-02-23] MEDS ORDERED: ASPIRIN CHEW 81 MG TABLET PO STA ×2 (17:05→17:25)
--- NOTE | 2023-02-23 17:05 | ED Physician Documentation ---
ED Addendum - Addendum Addendum: Discussed with Dr. Martin stroke neurology at /[facility].She reviewed the images and is concerned about potential M2 occlusion at 1705. The patient was given aspirin orally, we did discuss the possible subacute hemorrhage, but she feels that the clot is more urgent and recommends aspirin. Repeat NIHSS 8. Dr. Martin updated. Patient transferred via helicopter to [facility] ED. Dr. Martin graciously accepts in transfer. COBRA forms completed. Patient transferred This document was made in part using voice recognition software. While efforts are made to proofread this document, sound alike and grammatical errors may occur. PROCEDURE: BRAIN WO INDICATIONS: R eye visual compromise, L neglect TECHNIQUE: Noncontrast axial T1 spin echo, axial T2 fast spin echo, sagittal and axial FLAIR, coronal T2 fast spin echo, axial gradient echo, axial diffusion and ADC through the brain. COMPARISON: Head CT dated 02/23/2023. FINDINGS: Image quality: Excellent. CSF Spaces: Basal cisterns are patent. No extra-axial fluid collections. Ventricles are normal in size and shape. Brain: No intracranial masses nor acute hemorrhage. There are a few adjacent regions of low gradient echo signal intensity within the right anterior tinajero radiata, spanning roughly 18 mm anteroposterior. A few regions of low gradient echo signal intensity within the right parietal occipital lobe are present, spanning roughly 40 mm. There is mild cortical FLAIR signal elevation within the right posterior lateral parietal lobe, as well as the right posterior temporal lobe, spanning roughly 60 mm diameter, which demonstrates moderate diffusion signal elevation and low ADC map signal. Crook/white matter interface is normal. Brainstem appears normalNo chronic ischemic insults. Normal intravascular flow voids are present. Skull and face: Calvarium has normal marrow signal. Orbits appear normal. Sinuses: Sinuses and mastoids are clear. IMPRESSION: 1. Late subacute hemorrhagic infarct within the right parietal occipital lobe and posterior temporal lobe. 2. Chronic hemorrhagic focus within the right anterior centrum semiovale. 3. Volume loss and small vessel ischemic disease. 02/23/23 17:25 02/23/23 17:28 02/23/23 17:29 02/23/23 17:31 02/23/23 17:31 02/23/23 17:34 NIHSS - Time Time: 17:25 - Level of Consciousness Level of consciousness: (0) Alert, Keenly responsive LOC Questions: (0) Answers both Q's correct LOC Commands: (0) Performs both correctly - Gaze Best Gaze: (0) Normal - Visual Visual: (2) Complete Hemianopia - Facial Palsy Facial Palsy: (0) Normal, symmetrical movement - Motor Arms (both separate) Motor Arm (right): (0) No drift Motor Arm (left): (1) Drift - Motor Legs (both separate) Motor Leg (right): (0) No drift Motor Leg (left): (1) Drift - Limb Ataxia Limb Ataxia: (1) Present in 1 limb - Sensory Sensory: (1) Uoua-zr-veyjcfnh loss - Best Language Best Language: (0) No aphasia - Dysarthria Dysarthria: (0) Normal - Extinction and Inattention (formally neg Extinction and inattention: (2) Profound shanda-inattention or extinction to more than one modality - Total Score/Results Total Score/Result: 8 Departure - Departure Disposition: 02 Transfer Acute Care Hosp Clinical Impression: Cerebrovascular accident (CVA) Qualifiers: CVA mechanism: unspecified Qualified Code(s): I63.9 - Cerebral infarction, unspecified Condition: Stable Forms: PCP List
[2023-02-23 18:17] VITALS: BP 149/70; O2SAT 99
== END 2023-02-23 18:25 | disposition short-term general hospital (02) ==
LOC: ED 12:42
DX: I63.9 Cerebral infarction, unspecified (principal); R29.708 NIHSS score 8; H54.62 Unqualified visual loss, left eye, normal vision right eye; E11.9 Type 2 diabetes mellitus without complications; Z79.84 Long term (current) use of oral hypoglycemic drugs; I10 Essential (primary) hypertension
CPT/HCPCS: 36415; 70450; 70496; 70498; 70551; 80053; 81003; 83690; 85025; 85610; 93005; 99285; A9270; Q9967; 81001; 87086

== ENCOUNTER 2023-03-25 08:00 | Outpatient (CLI) | payer MEDICARE ==
[2023-03-25 19:58] LABS: BILIRUBIN,URINE NEGATIVE (NEGATIVE); GLUCOSE, URINE (UA) 100 mg/dL (NEGATIVE); KETONES,URINE (UA) NEGATIVE (NEGATIVE); LEUKOCYTE ESTERASE, URINE NEGATIVE (NEGATIVE); NITRITE,URINE NEGATIVE (NEGATIVE); OCCULT BLOOD,URINE NEGATIVE (NEGATIVE); PH,URINE 5.5 PH (5.0-7.5); PROTEIN,URINE NEGATIVE (NEGATIVE); UROBILINOGEN,URINE 0.2 (NORMAL) E.U./dL (NORMAL)
[2023-03-25 20:02] LABS: CLARITY,URINE CLEAR (CLEAR)
[2023-03-25 20:18] LABS: BACTERIA,URINE None Seen /HPF (None Seen); RBC,URINE None Seen /HPF (0-5); SQUAMOUS EPITHELIAL CELL,UR NONE SEEN (<= Few); WBC,URINE 0-3 /HPF (0-3)
== END 2023-03-25 23:59 | disposition home or self-care (01) ==
LOC: LAB.R 08:00
PROVIDERS: ATTEND Registered Nurse
DX: R31.9 Hematuria, unspecified (principal)
CPT/HCPCS: 81001

== ENCOUNTER 2023-03-26 16:01 | Outpatient (CLI) | payer MEDICARE ==
[2023-03-26 16:42] LABS: ALBUMIN/GLOBULIN RATIO 1.7 (1.0-2.2); BILIRUBIN,TOTAL 0.5 mg/dL (0.2-1.0); CALCIUM 10.5 mg/dL (8.5-10.3); CREATININE 0.9 mg/dL (0.6-1.3); POTASSIUM 4.2 mmol/L (3.5-4.5); TOTAL PROTEIN 6.3 g/dL (6.4-8.9)
[2023-03-26 16:44] LABS: BASOPHILS % (AUTO) 0.6 %; EOSINOPHILS # (AUTO) 0.1 10^3/uL (0.0-0.7); EOSINOPHILS % (AUTO) 1.7 %; HCT - HEMATOCRIT 42.8 % (42.0-52.0); HGB - HEMOGLOBIN 14.5 g/dL (14.0-18.0); LYMPHOCYTES # (AUTO) 2.3 10^3/uL (1.5-3.5); MEAN CORPUSCULAR HGB CONC 33.9 g/dL (32.0-36.0); MEAN CORPUSCULAR VOLUME 94.5 fL (80.0-94.0); MEAN PLATELET VOLUME 11.5 fL (7.4-11.4); MONOCYTES # (AUTO) 0.4 10^3/uL (0.0-1.0); MONOCYTES % (AUTO) 6.5 %; NEUTROPHILS # (AUTO) 3.4 10^3/uL (1.5-6.6); PLT - PLATELET COUNT 84 10^3/uL (130-450); RED BLOOD COUNT 4.53 10^6/uL (4.70-6.10); RED CELL DISTRIBUTION WIDTH 14.4 % (12.0-15.0); WHITE BLOOD COUNT 6.3 x10^3/uL (4.8-10.8)
== END 2023-03-26 16:02 | disposition home or self-care (01) ==
LOC: LAB 16:01
PROVIDERS: ATTEND Registered Nurse
DX: R31.9 Hematuria, unspecified (principal)
CPT/HCPCS: 36415; 80053; 81001; 82550; 85025

== ENCOUNTER 2023-03-27 08:00 | Outpatient (CLI) | payer MEDICARE ==
[2023-03-27 12:13] LABS: BILIRUBIN,URINE NEGATIVE (NEGATIVE); GLUCOSE, URINE (UA) 250 mg/dL (NEGATIVE); KETONES,URINE (UA) NEGATIVE (NEGATIVE); LEUKOCYTE ESTERASE, URINE NEGATIVE (NEGATIVE); NITRITE,URINE NEGATIVE (NEGATIVE); OCCULT BLOOD,URINE NEGATIVE (NEGATIVE); PROTEIN,URINE NEGATIVE (NEGATIVE); UROBILINOGEN,URINE 0.2 (NORMAL) E.U./dL (NORMAL)
[2023-03-27 12:17] LABS: BACTERIA,URINE Rare /HPF (None Seen); CLARITY,URINE CLEAR (CLEAR); RBC,URINE None Seen /HPF (0-5); SQUAMOUS EPITHELIAL CELL,UR NONE SEEN (<= Few); WBC,URINE 0-3 /HPF (0-3)
== END 2023-03-27 23:59 | disposition home or self-care (01) ==
LOC: LAB.R 08:00
PROVIDERS: ATTEND Registered Nurse
DX: R31.9 Hematuria, unspecified (principal)
CPT/HCPCS: 81001

== ENCOUNTER 2023-04-03 15:34 | Outpatient (CLI) | payer MEDICARE ==
--- NOTE | 2023-04-04 02:04 | Ultrasound Report ---
PROCEDURE: Renal (Retroperitoneal) INDICATIONS: HEMTURIA TECHNIQUE: Real-time scanning was performed of the retroperitoneal organs, with image documentation. COMPARISON: CT abdomen 06/07/2019. FINDINGS: Kidneys: Kidneys are normal in size. Right kidney measures 11.1 cm long; left kidney measures 11.1 cm long. Right renal cortical thickness is 0.9 cm; left renal cortical thickness is 0.9 cm. Echogeni c focus in the right lower to mid pole measuring 0.9 x 0.4 x 0.6 cm. No hydronephrosis. No solid mass . Bladder: Pre-void bladder volume is 163.5 mL. Post-void residual is 87.8 mL. Pre-void images demon strate no intraluminal masses or stones. On pre-void images, I lateral ureteral jets are noted with color Doppler interrogation. (Of note, ureteral jets may not be detectable in up to 25% of cases due to insufficient differences in specific gravity between ureteral and bladder urine). Miscellaneous: No free abdominal fluid. Mildly enlarged prostate measuring 3.5 x 3.7 x 4.8 cm with a calculated volume of 31.6 cc. Bladder wall appears circumferentially thickened. IMPRESSION: Probable right 7 mm nephrolithiasis. No hydronephrosis. Enlarged prostate with circumferentially thickened bladder wall suggestive of chronic bladder outlet obstruction. Reviewed by: Suzanne Calzada MD on 04/04/2023 2:03 AM PST Approved by: Suzanne Calzada MD on 04/04/2023 2:03 AM PST Station ID: [id number]
== END 2023-04-03 15:35 | disposition home or self-care (01) ==
LOC: DI 15:34
PROVIDERS: ATTEND Registered Nurse
DX: N40.0 Benign prostatic hyperplasia without lower urinary tract symptoms (principal); N32.89 Other specified disorders of bladder; R31.9 Hematuria, unspecified

== ENCOUNTER 2023-08-03 07:49 | Outpatient (CLI) | payer MEDICARE | END 2023-08-03 07:50 | disposition home or self-care (01) | LOC: LAB.S 07:49 | PROVIDERS: ATTEND Nurse Practitioner Family | DX: E10.65 Type 1 diabetes mellitus with hyperglycemia (principal) | CPT/HCPCS: 36415; 82947; 84681 ==

== ENCOUNTER 2023-09-05 11:53 | Outpatient (CLI) | payer MEDICARE | END 2023-09-05 11:54 | disposition home or self-care (01) | LOC: LAB.S 11:53 | PROVIDERS: ATTEND Registered Nurse | DX: R97.20 Elevated prostate specific antigen [PSA] (principal) | CPT/HCPCS: 36415; 84153 ==